=== PATIENT | male | born 1965 | race Caucasian/White ===

== ENCOUNTER 2018-02-26 14:21 | Inpatient (IN) | payer MEDICARE ==
[2018-02-26 15:02] LABS: BASO # 0.2 10^3/uL (0.0-0.2); BASO % 1.2 % (0.0-1.0); EOS # 0.2 10^3/uL (0.0-0.50); EOS % 1.9 % (0.0-3.0); HEMATOCRIT 43.6 % (42.0-52.0); HEMOGLOBIN 14.7 g/dl (13.5-17.5); IMMATURE GRANULOCYTE % 0.6 % (0-3.0); LYMPH # 3.1 10^3/uL (1.5-4.5); MEAN CORPUSCULAR HEMOGLOBIN 32.1 pg (27.0-33.0); MEAN CORPUSCULAR HGB CONC 33.7 g/dl (32.0-36.5); MEAN CORPUSCULAR VOLUME 95.2 fl (80.0-96.0); MONO % 7.8 % (0.0-5.0); NEUTROPHILS # 7.8 10^3/uL (1.8-7.7); NEUTROPHILS % 63.5 % (36.0-66.0); PLATELET COUNT, AUTOMATED 227 10^3/uL (150-450); RED BLOOD COUNT 4.58 10^6/uL (4.30-6.10); RED CELL DISTRIBUTION WIDTH 13.3 % (11.5-14.5); WHITE BLOOD COUNT 12.3 10^3/uL (4.0-10.0)
[2018-02-26] MEDS: LORazepam 2 MG/ML VIAL (J2060) IV ×2 (15:24→18:08)
[2018-02-26] MEDS: NS 1,000 ML IV ×2 (15:35→15:53)
[2018-02-26 15:36] LABS: BEDSIDE GLUCOSE 82 MG/DL (70-105)
[2018-02-26] MEDS ORDERED: ALBUTEROL 90 MCG/ACT 8GM HFA INHALER INH (16:15)
[2018-02-26 16:45] LABS: AMPHETAMINES LEVEL URINE NEGATIVE (NEGATIVE); BARBITURATES URINE NEGATIVE (NEGATIVE); BENZODIAZEPINES URINE NEGATIVE (NEGATIVE); CANNABINOIDS URINE POSITIVE (NEGATIVE); COCAINE METABOLITE URINE NEGATIVE (NEGATIVE); METHADONE URINE NEGATIVE (NEGATIVE); OPIATES URINE NEGATIVE (NEGATIVE); PHENCYCLIDINE URINE NEGATIVE (NEGATIVE)
[2018-02-26 16:47] LABS: ACETAMINOPHEN LEVEL < 2.0 UG/ML (10.0-30.0); ALBUMIN 3.7 GM/DL (3.2-5.2); ALBUMIN/GLOBULIN RATIO 0.93 (1.00-1.93); ALKALINE PHOSPHATASE 66 U/L (45-117); ALT/SGPT 28 U/L (12-78); ANION GAP 13 MEQ/L (8-16); AST/SGOT 17 U/L (7-37); BILIRUBIN,DIRECT 0.1 MG/DL (0.0-0.2); BILIRUBIN,TOTAL 0.3 MG/DL (0.2-1.0); BLOOD UREA NITROGEN 10 MG/DL (7-18); CALCIUM LEVEL 8.5 MG/DL (8.5-10.1); CARBON DIOXIDE LEVEL 23 MEQ/L (21-32); CHLORIDE LEVEL 104 MEQ/L (98-107); CPK CREATINE PHOSPHOKINASE 114 U/L (39-308); ETHYL ALCOHOL (ETHANOL) 0.162 % (0.000-0.010); GLOMERULAR FILTRATION RATE > 60.0 (>56); GLUCOSE, FASTING 88 MG/DL (70-100); POTASSIUM SERUM 4.2 MEQ/L (3.5-5.1); SALICYLATE LEVEL 4.4 MG/DL (5.0-30.0); SODIUM LEVEL 140 MEQ/L (136-145); THYROID STIMULATING HORMONE 0.663 uIU/ML (0.358-3.740); TOTAL PROTEIN 7.7 GM/DL (6.4-8.2)
[2018-02-26] MEDS: GABAPENTIN 300 MG CAP PO (20:50)
[2018-02-26] MEDS: SUCRALFATE 1 GM TAB PO (20:51)
[2018-02-26] MEDS: DIVALPROEX 500 MG TAB PO (20:51)
[2018-02-26 21:37] LABS: CPK CREATINE PHOSPHOKINASE 134 U/L (39-308); MAGNESIUM LEVEL 2.1 MG/DL (1.8-2.4); TROPONIN I < 0.02 NG/ML (< 0.10); VALPROIC ACID (DEPAKOTE) 42.7 UG/ML (50.0-100.0)
[2018-02-27] MEDS: NS 1,000 ML IV ×2 (03:56→17:28)
[2018-02-27] MEDS: FLUTICASONE HFA 220 MCG 12 GM INHALER (FLOVENT) INH ×3 (04:32→20:23)
[2018-02-27 04:50] LABS: HEMATOCRIT 39.4 % (42.0-52.0); HEMOGLOBIN 13.2 g/dl (13.5-17.5); MEAN CORPUSCULAR HGB CONC 33.5 g/dl (32.0-36.5); MEAN CORPUSCULAR VOLUME 95.4 fl (80.0-96.0); PLATELET COUNT, AUTOMATED 197 10^3/uL (150-450); RED BLOOD COUNT 4.13 10^6/uL (4.30-6.10); RED CELL DISTRIBUTION WIDTH 13.4 % (11.5-14.5)
[2018-02-27 05:28] LABS: ALBUMIN 3.2 GM/DL (3.2-5.2); ALBUMIN/GLOBULIN RATIO 0.94 (1.00-1.93); ALKALINE PHOSPHATASE 53 U/L (45-117); ALT/SGPT 23 U/L (12-78); ANION GAP 5 MEQ/L (8-16); AST/SGOT 17 U/L (7-37); BILIRUBIN,TOTAL 0.5 MG/DL (0.2-1.0); BLOOD UREA NITROGEN 10 MG/DL (7-18); CALCIUM LEVEL 8.1 MG/DL (8.5-10.1); CARBON DIOXIDE LEVEL 30 MEQ/L (21-32); CHLORIDE LEVEL 108 MEQ/L (98-107); CREATININE FOR GFR 0.98 MG/DL (0.70-1.30); GLOMERULAR FILTRATION RATE > 60.0 (>56); GLUCOSE, FASTING 97 MG/DL (70-100); POTASSIUM SERUM 4.3 MEQ/L (3.5-5.1); SODIUM LEVEL 143 MEQ/L (136-145); TOTAL PROTEIN 6.6 GM/DL (6.4-8.2); VALPROIC ACID (DEPAKOTE) 70.7 UG/ML (50.0-100.0)
[2018-02-27] MEDS: SUCRALFATE 1 GM TAB PO ×4 (07:41→20:03)
[2018-02-27] MEDS: TIOTROPIUM INHALER/CAPSULE (SPIRIVA) INH (08:00)
[2018-02-27] MEDS: DIVALPROEX 500 MG TAB PO ×2 (08:06→20:03)
[2018-02-27] MEDS: FOLIC ACID 1 MG TAB PO (08:06)
[2018-02-27] MEDS: FINASTERIDE 5 MG TAB PO (08:06)
[2018-02-27] MEDS: THIAMINE 100 MG TAB PO (08:06)
[2018-02-27] MEDS: GABAPENTIN 300 MG CAP PO ×3 (08:07→20:03)
[2018-02-27] MEDS: LORazepam 2 MG/ML VIAL (J2060) IV (11:38)
== END 2018-02-27 20:32 | DRG 881 ==
LOC: M ED 14:21 → M ED INP 15:48 → M ICU 17:33
DX: F32.9 Major depressive disorder, single episode, unspecified (principal); R45.851 Suicidal ideations; F10.10 Alcohol abuse, uncomplicated; F43.10 Post-traumatic stress disorder, unspecified; Z62.810 Personal history of physical and sexual abuse in childhood; F41.9 Anxiety disorder, unspecified; Z79.899 Other long term (current) drug therapy; D72.829 Elevated white blood cell count, unspecified

== ENCOUNTER 2018-02-27 20:38 | Inpatient (IN) | payer MEDICARE ==
[~2018-02-27 20:38] MED LIST: ACETAMINOPHEN TAB 650MG DOSE (2X325MG) PO; MAALOX 30 ML SUSP *UDC PO; MOM 30ML SUSPENSION UDC PO
[2018-02-28] MEDS: cloNIDine 0.1 MG TAB PO (02:08)
[2018-02-28] MEDS: LORazepam 1 MG TAB PO (02:08)
[2018-02-28 02:43] LABS: HEMATOCRIT 42.7 % (42.0-52.0); HEMOGLOBIN 14.2 g/dl (13.5-17.5); MEAN CORPUSCULAR HEMOGLOBIN 32.1 pg (27.0-33.0); MEAN CORPUSCULAR HGB CONC 33.3 g/dl (32.0-36.5); MEAN CORPUSCULAR VOLUME 96.4 fl (80.0-96.0); PLATELET COUNT, AUTOMATED 202 10^3/uL (150-450); RED BLOOD COUNT 4.43 10^6/uL (4.30-6.10); RED CELL DISTRIBUTION WIDTH 13.3 % (11.5-14.5); WHITE BLOOD COUNT 9.6 10^3/uL (4.0-10.0)
[2018-02-28 03:21] LABS: ALBUMIN 3.3 GM/DL (3.2-5.2); ALBUMIN/GLOBULIN RATIO 0.92 (1.00-1.93); ALKALINE PHOSPHATASE 59 U/L (45-117); ALT/SGPT 25 U/L (12-78); ANION GAP 6 MEQ/L (8-16); AST/SGOT 13 U/L (7-37); BILIRUBIN,TOTAL 0.6 MG/DL (0.2-1.0); BLOOD UREA NITROGEN 11 MG/DL (7-18); CALCIUM LEVEL 8.1 MG/DL (8.5-10.1); CARBON DIOXIDE LEVEL 29 MEQ/L (21-32); CHLORIDE LEVEL 107 MEQ/L (98-107); CREATININE FOR GFR 1.06 MG/DL (0.70-1.30); GLOMERULAR FILTRATION RATE > 60.0 (>56); GLUCOSE, FASTING 95 MG/DL (70-100); NT-PRO BNP 68 PG/ML (<125); POTASSIUM SERUM 4.1 MEQ/L (3.5-5.1); SODIUM LEVEL 142 MEQ/L (136-145); TOTAL PROTEIN 6.9 GM/DL (6.4-8.2); TROPONIN I < 0.02 NG/ML (< 0.10); VALPROIC ACID (DEPAKOTE) 95.3 UG/ML (50.0-100.0)
[2018-02-28] MEDS: GABAPENTIN 300 MG CAP PO ×3 (09:00→20:49)
[2018-02-28] MEDS: SERTRALINE HCL 50 MG TAB PO (09:44)
[2018-02-28 11:13] LABS: HEMATOCRIT 43.4 % (42.0-52.0); HEMOGLOBIN 14.6 g/dl (13.5-17.5); MEAN CORPUSCULAR HEMOGLOBIN 32.1 pg (27.0-33.0); MEAN CORPUSCULAR HGB CONC 33.6 g/dl (32.0-36.5); MEAN CORPUSCULAR VOLUME 95.4 fl (80.0-96.0); PLATELET COUNT, AUTOMATED 202 10^3/uL (150-450); RED BLOOD COUNT 4.55 10^6/uL (4.30-6.10); RED CELL DISTRIBUTION WIDTH 13.3 % (11.5-14.5); WHITE BLOOD COUNT 7.5 10^3/uL (4.0-10.0)
[2018-02-28 11:36] LABS: ALBUMIN 3.5 GM/DL (3.2-5.2); ALBUMIN/GLOBULIN RATIO 0.97 (1.00-1.93); ALKALINE PHOSPHATASE 59 U/L (45-117); ALT/SGPT 20 U/L (12-78); ANION GAP 4 MEQ/L (8-16); AST/SGOT 15 U/L (7-37); BILIRUBIN,TOTAL 0.4 MG/DL (0.2-1.0); BLOOD UREA NITROGEN 8 MG/DL (7-18); CALCIUM LEVEL 8.7 MG/DL (8.5-10.1); CARBON DIOXIDE LEVEL 30 MEQ/L (21-32); CHLORIDE LEVEL 106 MEQ/L (98-107); CREATININE FOR GFR 1.01 MG/DL (0.70-1.30); GLOMERULAR FILTRATION RATE > 60.0 (>56); GLUCOSE, FASTING 87 MG/DL (70-100); POTASSIUM SERUM 4.3 MEQ/L (3.5-5.1); SODIUM LEVEL 140 MEQ/L (136-145); TOTAL PROTEIN 7.1 GM/DL (6.4-8.2); VALPROIC ACID (DEPAKOTE) 69.7 UG/ML (50.0-100.0)
[2018-02-28] MEDS ORDERED: ALBUTEROL 90 MCG/ACT 8GM HFA INHALER INH (12:45)
[2018-02-28] MEDS: DULoxetine 30 MG CAP (CYMBALTA) PO (14:52)
[2018-02-28] MEDS: DIVALPROEX 500 MG TAB PO ×2 (14:52→20:48)
[2018-02-28] MEDS: TIOTROPIUM INHALER/CAPSULE (SPIRIVA) INH (14:52)
[2018-02-28] MEDS ORDERED: GABAPENTIN 300 MG CAP PO (16:00)
[2018-02-28] MEDS: traZODone 50 MG TAB PO (20:48)
[2018-02-28] MEDS: hydrOXYzine 50 MG TAB PO (20:48)
[2018-03-01] MEDS: SUCRALFATE 1 GM TAB PO ×3 (00:30→11:39)
[2018-03-01] MEDS: TIOTROPIUM INHALER/CAPSULE (SPIRIVA) INH (08:04)
[2018-03-01] MEDS: SERTRALINE HCL 50 MG TAB PO (08:04)
[2018-03-01] MEDS: THIAMINE 100 MG TAB PO (08:04)
[2018-03-01] MEDS: DULoxetine 30 MG CAP (CYMBALTA) PO (08:04)
[2018-03-01] MEDS: GABAPENTIN 300 MG CAP PO (08:04)
[2018-03-01] MEDS: PANTOPRAZOLE 40MG TAB (PROTONIX) PO (08:04)
[2018-03-01] MEDS: DIVALPROEX 500 MG TAB PO (08:04)
[2018-03-01] MEDS: FINASTERIDE 5 MG TAB PO (08:04)
== END 2018-03-01 13:15 | disposition home or self-care (01) | DRG 881 ==
LOC: M PSY 20:38
DX: F32.9 Major depressive disorder, single episode, unspecified (principal); R45.851 Suicidal ideations; F10.10 Alcohol abuse, uncomplicated; F43.10 Post-traumatic stress disorder, unspecified; Z62.810 Personal history of physical and sexual abuse in childhood; F41.9 Anxiety disorder, unspecified; Z79.899 Other long term (current) drug therapy; D72.829 Elevated white blood cell count, unspecified

== ENCOUNTER 2018-03-31 23:18 | Inpatient (IN) | payer MEDICARE ==
[2018-03-31] MEDS: NS 1,000 ML IV (23:45)
[2018-03-31 23:55] LABS: BASO # 0.3 10^3/uL (0.0-0.2); BASO % 2.5 % (0.0-1.0); EOS # 0.8 10^3/uL (0.0-0.50); EOS % 8.2 % (0.0-3.0); HEMATOCRIT 40.5 % (42.0-52.0); HEMOGLOBIN 13.6 g/dl (13.5-17.5); IMMATURE GRANULOCYTE % 1.2 % (0-3.0); LYMPH # 2.3 10^3/uL (1.5-4.5); LYMPH % 22.9 % (24.0-44.0); MEAN CORPUSCULAR HEMOGLOBIN 32.2 pg (27.0-33.0); MEAN CORPUSCULAR HGB CONC 33.6 g/dl (32.0-36.5); MEAN CORPUSCULAR VOLUME 95.7 fl (80.0-96.0); MONO # 0.9 10^3/uL (0.0-0.8); MONO % 8.8 % (0.0-5.0); NEUTROPHILS # 5.5 10^3/uL (1.8-7.7); NEUTROPHILS % 56.4 % (36.0-66.0); PLATELET COUNT, AUTOMATED 256 10^3/uL (150-450); RED BLOOD COUNT 4.23 10^6/uL (4.30-6.10); RED CELL DISTRIBUTION WIDTH 13.4 % (11.5-14.5); WHITE BLOOD COUNT 9.8 10^3/uL (4.0-10.0)
[2018-04-01 00:18] LABS: LACTIC ACID SEPSIS PROTOCOL 2.3 MMOL/L (0.4-2.0)
[2018-04-01 00:27] LABS: ACETAMINOPHEN LEVEL < 2.0 UG/ML (10.0-30.0); ALBUMIN 3.8 GM/DL (3.2-5.2); ALBUMIN/GLOBULIN RATIO 0.95 (1.00-1.93); ALKALINE PHOSPHATASE 65 U/L (45-117); ALT/SGPT 29 U/L (12-78); ANION GAP 10 MEQ/L (8-16); AST/SGOT 31 U/L (7-37); BILIRUBIN,DIRECT < 0.1 MG/DL (0.0-0.2); BILIRUBIN,TOTAL 0.3 MG/DL (0.2-1.0); BLOOD UREA NITROGEN 16 MG/DL (7-18); CALCIUM LEVEL 8.2 MG/DL (8.5-10.1); CARBON DIOXIDE LEVEL 23 MEQ/L (21-32); CHLORIDE LEVEL 106 MEQ/L (98-107); CPK CREATINE PHOSPHOKINASE 267 U/L (39-308); CREATININE FOR GFR 1.12 MG/DL (0.70-1.30); ETHYL ALCOHOL (ETHANOL) 0.035 % (0.000-0.010); GLOMERULAR FILTRATION RATE > 60.0 (>56); GLUCOSE, FASTING 91 MG/DL (70-100); POTASSIUM SERUM 4.4 MEQ/L (3.5-5.1); SALICYLATE LEVEL 3.2 MG/DL (5.0-30.0); SODIUM LEVEL 139 MEQ/L (136-145); TOTAL PROTEIN 7.8 GM/DL (6.4-8.2)
[2018-04-01 01:19] LABS: AMPHETAMINES LEVEL URINE NEGATIVE (NEGATIVE); BARBITURATES URINE NEGATIVE (NEGATIVE); BENZODIAZEPINES URINE NEGATIVE (NEGATIVE); CANNABINOIDS URINE NEGATIVE (NEGATIVE); COCAINE METABOLITE URINE NEGATIVE (NEGATIVE); METHADONE URINE NEGATIVE (NEGATIVE); OPIATES URINE NEGATIVE (NEGATIVE); PHENCYCLIDINE URINE NEGATIVE (NEGATIVE)
[2018-04-01 02:24] LABS: INR 0.91; PROTHROMBIN TIME 12.3 SECONDS (12.1-14.4)
[2018-04-01] MEDS ORDERED: LORazepam 2 MG TAB PO (03:30)
[2018-04-01] MEDS: NS 1,000 ML IV ×4 (03:30→22:56)
[2018-04-01] MEDS: THIAMINE 100 MG TAB PO ×2 (03:57→21:46)
[2018-04-01] MEDS: HEPARIN SOD (PORCINE) 5000 UNITS/ML VIAL SC ×3 (06:00→21:47)
[2018-04-01] MEDS: SUCRALFATE 1 GM TAB PO ×4 (07:30→21:45)
[2018-04-01 07:40] LABS: BASO # 0.2 10^3/uL (0.0-0.2); BASO % 2.2 % (0.0-1.0); EOS # 0.8 10^3/uL (0.0-0.50); EOS % 7.6 % (0.0-3.0); HEMATOCRIT 38.9 % (42.0-52.0); HEMOGLOBIN 13.1 g/dl (13.5-17.5); IMMATURE GRANULOCYTE % 0.8 % (0-3.0); LYMPH % 29.8 % (24.0-44.0); MEAN CORPUSCULAR HEMOGLOBIN 32.3 pg (27.0-33.0); MEAN CORPUSCULAR HGB CONC 33.7 g/dl (32.0-36.5); MEAN CORPUSCULAR VOLUME 95.8 fl (80.0-96.0); MONO # 0.8 10^3/uL (0.0-0.8); MONO % 7.8 % (0.0-5.0); NEUTROPHILS # 5.2 10^3/uL (1.8-7.7); NEUTROPHILS % 51.8 % (36.0-66.0); PLATELET COUNT, AUTOMATED 251 10^3/uL (150-450); RED BLOOD COUNT 4.06 10^6/uL (4.30-6.10); RED CELL DISTRIBUTION WIDTH 13.3 % (11.5-14.5); WHITE BLOOD COUNT 10.1 10^3/uL (4.0-10.0)
[2018-04-01 07:45] LABS: ANION GAP 4 MEQ/L (8-16); BLOOD UREA NITROGEN 15 MG/DL (7-18); CALCIUM LEVEL 8.2 MG/DL (8.5-10.1); CARBON DIOXIDE LEVEL 27 MEQ/L (21-32); CHLORIDE LEVEL 110 MEQ/L (98-107); CREATININE FOR GFR 1.01 MG/DL (0.70-1.30); GLOMERULAR FILTRATION RATE > 60.0 (>56); GLUCOSE, FASTING 89 MG/DL (70-100); MAGNESIUM LEVEL 2.3 MG/DL (1.8-2.4); POTASSIUM SERUM 4.8 MEQ/L (3.5-5.1); SODIUM LEVEL 141 MEQ/L (136-145); VALPROIC ACID (DEPAKOTE) 6.7 UG/ML (50.0-100.0)
[2018-04-01] MEDS: DIVALPROEX 500 MG TAB PO ×2 (10:00→21:46)
[2018-04-01] MEDS: NICOTINE 14 MG/24 HR TRANSDERMAL TD (10:00)
[2018-04-01] MEDS: MULTIVITAMINS/MINERALS THERAP 1 TAB PO (10:01)
[2018-04-01] MEDS: FINASTERIDE 5 MG TAB PO (10:01)
[2018-04-01] MEDS: FOLIC ACID 1 MG TAB PO (10:01)
[2018-04-01] MEDS: TIOTROPIUM INHALER/CAPSULE (SPIRIVA) INH (10:23)
[2018-04-01] MEDS: FLUTICASONE HFA 220 MCG 12 GM INHALER (FLOVENT) INH ×2 (10:24→20:35)
[2018-04-01] MEDS: IPRATROPIUM 0.5MG/ALBUTEROL 2.5MG INH SOL UD 3ML (DUONEB)(J7620) NEB ×3 (10:25→20:00)
[2018-04-01] MEDS ORDERED: PILL CRUSHER/CUTTER 1 EACH XX (13:00)
[2018-04-01 14:29] LABS: KETONE, URINE AUTO RFX NEGATIVE (NEGATIVE); LEUKOCYTE ESTERASE UR AUTO RFX NEGATIVE (NEGATIVE); MUCUS, URINE RFX SMALL (NEGATIVE); NITRITE, URINE AUTO RFX NEGATIVE (NEGATIVE); RBC, URINE AUTO RFX 1 /HPF (0-3); SPECIFIC GRAVITY UR AUTO RFX 1.009 (1.002-1.035); SQUAM EPITHELIAL CELL UR AURFX 0 /HPF (0-6); WBC, URINE AUTO RFX 0 /HPF (0-3)
[2018-04-01] MEDS: DULoxetine 30 MG CAP (CYMBALTA) PO (14:41)
[2018-04-01] MEDS: GABAPENTIN 400 MG CAP PO ×2 (14:42→21:45)
[2018-04-01] MEDS: OLANZapine ORAL DISINTEGRATING TAB 5MG PO (21:46)
[2018-04-02] MEDS: IPRATROPIUM 0.5MG/ALBUTEROL 2.5MG INH SOL UD 3ML (DUONEB)(J7620) NEB ×6 (02:00→23:17)
[2018-04-02 04:23] LABS: BASO # 0.2 10^3/uL (0.0-0.2); BASO % 1.9 % (0.0-1.0); EOS # 0.9 10^3/uL (0.0-0.50); EOS % 9.6 % (0.0-3.0); HEMATOCRIT 36.5 % (42.0-52.0); HEMOGLOBIN 12.1 g/dl (13.5-17.5); IMMATURE GRANULOCYTE % 0.8 % (0-3.0); LYMPH # 3.1 10^3/uL (1.5-4.5); LYMPH % 34.5 % (24.0-44.0); MEAN CORPUSCULAR HEMOGLOBIN 31.5 pg (27.0-33.0); MEAN CORPUSCULAR HGB CONC 33.2 g/dl (32.0-36.5); MEAN CORPUSCULAR VOLUME 95.1 fl (80.0-96.0); MONO # 0.9 10^3/uL (0.0-0.8); MONO % 10.1 % (0.0-5.0); NEUTROPHILS # 3.8 10^3/uL (1.8-7.7); NEUTROPHILS % 43.1 % (36.0-66.0); PLATELET COUNT, AUTOMATED 237 10^3/uL (150-450); RED BLOOD COUNT 3.84 10^6/uL (4.30-6.10); RED CELL DISTRIBUTION WIDTH 13.3 % (11.5-14.5); WHITE BLOOD COUNT 8.9 10^3/uL (4.0-10.0)
[2018-04-02 04:37] LABS: ALBUMIN 2.7 GM/DL (3.2-5.2); ALBUMIN/GLOBULIN RATIO 0.79 (1.00-1.93); ALKALINE PHOSPHATASE 54 U/L (45-117); ALT/SGPT 21 U/L (12-78); ANION GAP 5 MEQ/L (8-16); AST/SGOT 11 U/L (7-37); BILIRUBIN,TOTAL 0.2 MG/DL (0.2-1.0); BLOOD UREA NITROGEN 25 MG/DL (7-18); CALCIUM LEVEL 7.8 MG/DL (8.5-10.1); CARBON DIOXIDE LEVEL 23 MEQ/L (21-32); CHLORIDE LEVEL 115 MEQ/L (98-107); CREATININE FOR GFR 0.91 MG/DL (0.70-1.30); GLOMERULAR FILTRATION RATE > 60.0 (>56); GLUCOSE, FASTING 94 MG/DL (70-100); MAGNESIUM LEVEL 2.1 MG/DL (1.8-2.4); POTASSIUM SERUM 4.2 MEQ/L (3.5-5.1); SODIUM LEVEL 143 MEQ/L (136-145); TOTAL PROTEIN 6.1 GM/DL (6.4-8.2)
[2018-04-02] MEDS: HEPARIN SOD (PORCINE) 5000 UNITS/ML VIAL SC ×3 (05:32→21:32)
[2018-04-02] MEDS: NS 1,000 ML IV (05:41)
[2018-04-02] MEDS: NICOTINE 14 MG/24 HR TRANSDERMAL TD (07:46)
[2018-04-02] MEDS: GABAPENTIN 400 MG CAP PO ×3 (07:47→21:27)
[2018-04-02] MEDS: FINASTERIDE 5 MG TAB PO (07:48)
[2018-04-02] MEDS: SUCRALFATE 1 GM TAB PO ×4 (07:48→21:27)
[2018-04-02] MEDS: DIVALPROEX 500 MG TAB PO ×2 (07:48→21:27)
[2018-04-02] MEDS: MULTIVITAMINS/MINERALS THERAP 1 TAB PO (07:48)
[2018-04-02] MEDS: FOLIC ACID 1 MG TAB PO (07:48)
[2018-04-02] MEDS: DULoxetine 30 MG CAP (CYMBALTA) PO (07:48)
[2018-04-02] MEDS: THIAMINE 100 MG TAB PO ×2 (07:48→21:27)
[2018-04-02] MEDS: FLUTICASONE HFA 220 MCG 12 GM INHALER (FLOVENT) INH ×2 (07:55→21:26)
[2018-04-02] MEDS: TIOTROPIUM INHALER/CAPSULE (SPIRIVA) INH (07:55)
[2018-04-02] MEDS: OLANZapine ORAL DISINTEGRATING TAB 5MG PO (21:27)
[2018-04-03] MEDS: IPRATROPIUM 0.5MG/ALBUTEROL 2.5MG INH SOL UD 3ML (DUONEB)(J7620) NEB ×4 (02:00→20:29)
[2018-04-03 06:14] LABS: BASO # 0.2 10^3/uL (0.0-0.2); BASO % 1.9 % (0.0-1.0); EOS # 0.9 10^3/uL (0.0-0.50); HEMATOCRIT 36.9 % (42.0-52.0); HEMOGLOBIN 12.2 g/dl (13.5-17.5); IMMATURE GRANULOCYTE % 0.5 % (0-3.0); LYMPH # 3.2 10^3/uL (1.5-4.5); LYMPH % 34.2 % (24.0-44.0); MEAN CORPUSCULAR HEMOGLOBIN 31.6 pg (27.0-33.0); MEAN CORPUSCULAR HGB CONC 33.1 g/dl (32.0-36.5); MEAN CORPUSCULAR VOLUME 95.6 fl (80.0-96.0); MONO # 0.8 10^3/uL (0.0-0.8); MONO % 9.1 % (0.0-5.0); NEUTROPHILS # 4.1 10^3/uL (1.8-7.7); NEUTROPHILS % 44.3 % (36.0-66.0); PLATELET COUNT, AUTOMATED 233 10^3/uL (150-450); RED BLOOD COUNT 3.86 10^6/uL (4.30-6.10); RED CELL DISTRIBUTION WIDTH 13.3 % (11.5-14.5); WHITE BLOOD COUNT 9.3 10^3/uL (4.0-10.0)
[2018-04-03] MEDS: HEPARIN SOD (PORCINE) 5000 UNITS/ML VIAL SC ×3 (06:20→21:10)
[2018-04-03 06:40] LABS: ALBUMIN 2.8 GM/DL (3.2-5.2); ALBUMIN/GLOBULIN RATIO 0.78 (1.00-1.93); ALKALINE PHOSPHATASE 50 U/L (45-117); ALT/SGPT 20 U/L (12-78); ANION GAP 7 MEQ/L (8-16); AST/SGOT 12 U/L (7-37); BILIRUBIN,TOTAL 0.3 MG/DL (0.2-1.0); BLOOD UREA NITROGEN 16 MG/DL (7-18); CALCIUM LEVEL 8.3 MG/DL (8.5-10.1); CARBON DIOXIDE LEVEL 24 MEQ/L (21-32); CHLORIDE LEVEL 113 MEQ/L (98-107); CREATININE FOR GFR 0.79 MG/DL (0.70-1.30); GLOMERULAR FILTRATION RATE > 60.0 (>56); GLUCOSE, FASTING 86 MG/DL (70-100); MAGNESIUM LEVEL 1.9 MG/DL (1.8-2.4); POTASSIUM SERUM 4.1 MEQ/L (3.5-5.1); SODIUM LEVEL 144 MEQ/L (136-145); TOTAL PROTEIN 6.4 GM/DL (6.4-8.2)
[2018-04-03] MEDS: SUCRALFATE 1 GM TAB PO ×4 (07:24→21:08)
[2018-04-03] MEDS: GABAPENTIN 400 MG CAP PO ×3 (07:24→21:08)
[2018-04-03] MEDS: MULTIVITAMINS/MINERALS THERAP 1 TAB PO (07:24)
[2018-04-03] MEDS: FOLIC ACID 1 MG TAB PO (07:24)
[2018-04-03] MEDS: FINASTERIDE 5 MG TAB PO (07:25)
[2018-04-03] MEDS: DULoxetine 30 MG CAP (CYMBALTA) PO (07:25)
[2018-04-03] MEDS: DIVALPROEX 500 MG TAB PO ×2 (07:25→21:08)
[2018-04-03] MEDS: THIAMINE 100 MG TAB PO ×2 (07:25→21:08)
[2018-04-03] MEDS: NICOTINE 14 MG/24 HR TRANSDERMAL TD (07:26)
[2018-04-03] MEDS: TIOTROPIUM INHALER/CAPSULE (SPIRIVA) INH (07:26)
[2018-04-03] MEDS: FLUTICASONE HFA 220 MCG 12 GM INHALER (FLOVENT) INH (07:36)
[2018-04-03] MEDS: BACITRACIN OINT 30GM TOP (13:56)
[2018-04-03] MEDS: OLANZapine ORAL DISINTEGRATING TAB 5MG PO (21:08)
[2018-04-04] MEDS: IPRATROPIUM 0.5MG/ALBUTEROL 2.5MG INH SOL UD 3ML (DUONEB)(J7620) NEB ×3 (01:08→14:00)
[2018-04-04 06:25] LABS: BASO # 0.2 10^3/uL (0.0-0.2); BASO % 2.1 % (0.0-1.0); EOS # 1.1 10^3/uL (0.0-0.50); EOS % 11.6 % (0.0-3.0); HEMATOCRIT 39.3 % (42.0-52.0); HEMOGLOBIN 12.8 g/dl (13.5-17.5); IMMATURE GRANULOCYTE % 0.8 % (0-3.0); LYMPH # 3.7 10^3/uL (1.5-4.5); LYMPH % 40.6 % (24.0-44.0); MEAN CORPUSCULAR HEMOGLOBIN 31.6 pg (27.0-33.0); MEAN CORPUSCULAR HGB CONC 32.6 g/dl (32.0-36.5); MONO # 0.8 10^3/uL (0.0-0.8); MONO % 8.4 % (0.0-5.0); NEUTROPHILS # 3.4 10^3/uL (1.8-7.7); NEUTROPHILS % 36.5 % (36.0-66.0); PLATELET COUNT, AUTOMATED 255 10^3/uL (150-450); RED BLOOD COUNT 4.05 10^6/uL (4.30-6.10); RED CELL DISTRIBUTION WIDTH 13.3 % (11.5-14.5); WHITE BLOOD COUNT 9.2 10^3/uL (4.0-10.0)
[2018-04-04] MEDS: HEPARIN SOD (PORCINE) 5000 UNITS/ML VIAL SC ×2 (06:33→14:00)
[2018-04-04 06:55] LABS: ALBUMIN 3.2 GM/DL (3.2-5.2); ALBUMIN/GLOBULIN RATIO 0.82 (1.00-1.93); ALKALINE PHOSPHATASE 53 U/L (45-117); ALT/SGPT 20 U/L (12-78); ANION GAP 6 MEQ/L (8-16); AST/SGOT 11 U/L (7-37); BILIRUBIN,TOTAL 0.3 MG/DL (0.2-1.0); BLOOD UREA NITROGEN 15 MG/DL (7-18); CALCIUM LEVEL 8.3 MG/DL (8.5-10.1); CARBON DIOXIDE LEVEL 27 MEQ/L (21-32); CHLORIDE LEVEL 110 MEQ/L (98-107); CREATININE FOR GFR 0.94 MG/DL (0.70-1.30); GLOMERULAR FILTRATION RATE > 60.0 (>56); GLUCOSE, FASTING 88 MG/DL (70-100); MAGNESIUM LEVEL 1.8 MG/DL (1.8-2.4); POTASSIUM SERUM 3.8 MEQ/L (3.5-5.1); SODIUM LEVEL 143 MEQ/L (136-145); TOTAL PROTEIN 7.1 GM/DL (6.4-8.2)
[2018-04-04 07:03] LABS: TOTAL 25(OH) VITAMIN D 27.3 NG/ML (30.0-100.0)
[2018-04-04 07:03] LABS: VITAMIN B12 LEVEL 440 PG/ML (247-911)
[2018-04-04] MEDS: FLUTICASONE HFA 220 MCG 12 GM INHALER (FLOVENT) INH (07:34)
[2018-04-04] MEDS: TIOTROPIUM INHALER/CAPSULE (SPIRIVA) INH (07:34)
[2018-04-04] MEDS: DIVALPROEX 500 MG TAB PO (09:50)
[2018-04-04] MEDS: GABAPENTIN 400 MG CAP PO ×2 (09:50→17:26)
[2018-04-04] MEDS: FINASTERIDE 5 MG TAB PO (09:50)
[2018-04-04] MEDS: MULTIVITAMINS/MINERALS THERAP 1 TAB PO (09:50)
[2018-04-04] MEDS: DULoxetine 30 MG CAP (CYMBALTA) PO (09:50)
[2018-04-04] MEDS: NICOTINE 14 MG/24 HR TRANSDERMAL TD (09:51)
[2018-04-04] MEDS: SUCRALFATE 1 GM TAB PO ×3 (09:51→17:26)
[2018-04-04] MEDS: FOLIC ACID 1 MG TAB PO (09:51)
[2018-04-04] MEDS ORDERED: OLANZapine ORAL DISINTEGRATING TAB 5MG PO (21:00)
[2018-04-04] MEDS ORDERED: traZODone 50 MG TAB PO (21:00)
== END 2018-04-04 18:32 | disposition home or self-care (01) | DRG 918 ==
LOC: M MSPAV 04-02 10:58 → M ED 23:18 → M ED INP 23:19 → M ICU 04-01 08:34
DX: T43.292A Poisoning by other antidepressants, intentional self-harm, initial encounter (principal); R45.851 Suicidal ideations; E87.2 Acidosis; F31.60 Bipolar disorder, current episode mixed, unspecified; G40.909 Epilepsy, unspecified, not intractable, without status epilepticus; F43.10 Post-traumatic stress disorder, unspecified; I10 Essential (primary) hypertension; J45.909 Unspecified asthma, uncomplicated; F41.9 Anxiety disorder, unspecified; F10.10 Alcohol abuse, uncomplicated; K21.9 Gastro-esophageal reflux disease without esophagitis; Z91.038 Other insect allergy status; F17.210 Nicotine dependence, cigarettes, uncomplicated; R45.850 Homicidal ideations; Z79.899 Other long term (current) drug therapy; N40.0 Benign prostatic hyperplasia without lower urinary tract symptoms; Z91.14 Patient's other noncompliance with medication regimen; F60.3 Borderline personality disorder; F60.2 Antisocial personality disorder

== ENCOUNTER 2018-05-10 14:05 | Inpatient (IN) | payer MEDICARE ==
[~2018-05-10] VITALS: Ht 188 cm; Wt 113.6 kg
[~2018-05-10 14:05] MED LIST changes: -ACETAMINOPHEN TAB 650MG DOSE (2X325MG) PO; +ALFU10TA2 PO; +BETH10TA4; +BETH10TA4 PO; +BUPR100T3 PO; +BUPR1TAB52; +CARA1TAB6 PO; +CITA-230 PO; +CITA20TA4; +DEPA1TAB3 PO; +DILT30TA; +DILT30TA PO; +DIVA500T94; +DULO1CAP2 PO; +DULO30CA PO; +EPIN0.3I11; +ESOM1CAP5; +ESOM1CAP5 PO; +FINA5TAB2; +FINA5TAB2 PO; +FLUT11IN; +FLUT22IN INH; +FOLI1TAB11 PO; +GABA600T4; +GABA600T4 PO; +HYDR50TA70 PO; +HYDRO50TAB PO; +LEVO330T3 PO; -MAALOX 30 ML SUSP *UDC PO; -MOM 30ML SUSPENSION UDC PO; +NEXI40GR PO; +OLAN5ZYD PO; +SPIR1CAP; +SPIR1CAP INH; +SUCR1TAB56; +THIA100T7 PO; +TRAZ-160 PO; +TRAZO50TA PO; +VENTAER; +VENTAER INH; +WELL100T2 PO; +patient comment
[2018-05-10] MEDS ORDERED: PROPOFOL 1,000 MG in APPROPRIATE DILUENT 1 EA IV SCH (15:34)
[2018-05-10] MEDS ORDERED: MIDAZOLAM INJ 2 MG/2 ML VIAL (J2250) IV PRN (15:45)
[2018-05-10] MEDS ORDERED: MORPHINE 4 MG/ML 1ML VIAL/SYRINGE (J2270) IV PRN (15:45)
[2018-05-10] MEDS ORDERED: PROPOFOL 1,000 MG/100 ML VIAL As Ordered ONE ×2 (18:39→20:42)
[2018-05-10 18:45] VITALS: BP 109/69
[2018-05-10] MEDS: PROPOFOL 1,000 MG in APPROPRIATE DILUENT 1 EA IV SCH ×3 (19:00→23:26)
[2018-05-10 19:11] LABS: HEMATOCRIT 33.6 % (42.0-52.0); HEMOGLOBIN 10.8 g/dl (13.5-17.5); MEAN CORPUSCULAR HGB CONC 32.1 g/dl (32.0-36.5); MEAN CORPUSCULAR VOLUME 99.7 fl (80.0-96.0); PLATELET COUNT, AUTOMATED 200 10^3/uL (150-450); RED BLOOD COUNT 3.37 10^6/uL (4.30-6.10); WHITE BLOOD COUNT 9.4 10^3/uL (4.0-10.0)
[2018-05-10] MEDS ORDERED: DILT120C82 PO (19:14)
[2018-05-10] MEDS ORDERED: MECL-86 PO (19:14)
[2018-05-10] MEDS ORDERED: PILL CRUSHER/CUTTER 1 EACH XX PRN (19:15)
[2018-05-10 19:28] LABS: ABG BASE EXCESS -2.8 (-2.0-2.0); ABG HCO3 22.7 MEQ/L (22.0-26.0); ABG O2 SATURATION 95.4 % (95.0-99.0); ABG PARTIAL PRESSURE CO2 42.5 mmHg (35.0-45.0); ABG PARTIAL PRESSURE O2 79.6 mmHg (75.0-100.0); ABG STANDARD HCO3 22.1 MEQ/L (22.0-26.0); ABG pH (ARTERIAL) 7.346 UNITS (7.350-7.450)
[2018-05-10 19:33] LABS: ALBUMIN 2.7 GM/DL (3.2-5.2); ALT/SGPT 18 U/L (12-78); BILIRUBIN,TOTAL 0.3 MG/DL (0.2-1.0); BLOOD UREA NITROGEN 8 MG/DL (7-18); CALCIUM LEVEL 7.2 MG/DL (8.5-10.1); CARBON DIOXIDE LEVEL 25 MEQ/L (21-32); CHLORIDE LEVEL 114 MEQ/L (98-107); CHOLESTEROL LEVEL 157 MG/DL (< 200); CPK CREATINE PHOSPHOKINASE 643 U/L (39-308); CREATININE FOR GFR 0.88 MG/DL (0.70-1.30); GLOMERULAR FILTRATION RATE > 60.0 (>56); GLUCOSE, FASTING 75 MG/DL (70-100); LDH LACTATE DEHYDROGENASE 178 U/L (87-241); PHOSPHORUS LEVEL 2.2 MG/DL (2.5-4.9); POTASSIUM SERUM 3.8 MEQ/L (3.5-5.1); SODIUM LEVEL 145 MEQ/L (136-145); TOTAL PROTEIN 5.9 GM/DL (6.4-8.2); TRIGLYCERIDES LEVEL 166 MG/DL (<150); VALPROIC ACID (DEPAKOTE) 13.4 UG/ML (50.0-100.0)
--- NOTE | 2018-05-10 19:48 | REP ---
Clinical: Respiratory failure. Comparison: 03/31/2018. Findings: Endotracheal tube 4 cm above the nilsa. Nasogastric tube in satisfactory position. Mediastinum and cardiac silhouette are normal. Diffuse increased markings with cephalization and subtle indistinct central pulmonary vasculature raises the possibility of pulmonary vascular congestion. No focal consolidation, effusion, or pneumothorax. Impression: Limited by portable technique. Pulmonary vascular congestion and interstitial edema cannot be excluded. Electronically Signed by Librado Morillo MD 05/10/2018 07:40 P
--- NOTE | 2018-05-10 19:57 | HPE ---
CRITICAL CARE HISTORY AND PHYSICAL DATE OF ADMISSION: 05/10/2018 CRITICAL CARE TIME: 1 hour. This excludes all procedures. HISTORY OF PRESENT ILLNESS: Mr. Stapleton is a 52-year-old male who presented to [facility] within the past 24 hours with what appeared to be seizure and alcohol withdrawal; was intubated. Due to emergency road conditions was not able to be transferred here. Was maintained on mechanical ventilation at [facility] for 24 hours and then when roads cleared eventually was transferred here. They have no critical care physicians. On his arrival, he is sedated on mechanical ventilation. Apparently, he received fentanyl just prior to being transferred. He is on a propofol drip. He is not responsive. Pupils are pinpoint, but reactive. Mucous membranes are moist. He does not have any evidence of seizure activity currently. He is breathing with the ventilator. I am unable to obtain any history other than the limited history provided to me by the transferring physician. Based on his record he has an unfortunate history of drug abuse, drug overdose, intentional with suicidal ideation, post-traumatic stress disorder, possible seizure disorder versus pseudoseizures. PAST MEDICAL HISTORY: There is also a reported history of chronic obstructive pulmonary disease (COPD), although I do not have pulmonary function testing, history of alcohol abuse, gastroesophageal reflux. MEDICATIONS: When discharged from the hospital just in late March. The patient was on: - Depakote 1000 mg by mouth twice a day - proton pump inhibitor at 40 mg by mouth daily - Alfuzosin HCl 10 mg by mouth daily - bethanechol 10 mg by mouth daily - citalopram 20 mg by mouth twice a day - diltiazem 15 mg by mouth twice a day - fluoxetine 30 mg by mouth daily - finasteride 5 mg by mouth daily - Flovent 220 mcg inhaled twice a day - folic acid 1 mg by mouth daily - gabapentin 1200 mg by mouth three times a day - Levocarnitine 990 mg by mouth three times a day - olanzapine 10 mg by mouth at bedtime - Carafate 1 gram by mouth at bedtime - thiamine 100 mg by mouth daily - Spiriva 1 inhalation daily - as needed (p.r.n.) of albuterol, hydroxyzine and trazodone. REVIEW OF SYSTEMS: Unobtainable. SOCIAL HISTORY: Unobtainable. FAMILY HISTORY: Unobtainable. PHYSICAL EXAMINATION: Temperature is 98.5, pulse is 74, blood pressure is 109/69, oxygen saturation 97% on 0.30 FIO2, respiratory rate is 17. General: The patient is sedated on mechanical ventilation, has been no purposeful movements. No posturing. HEENT: Sclerae clear and anicteric. Pupils are equal, but nearly pinpoint. Minimally reactive to light. No nystagmus. There is a positive corneal reflex. Tongue is midline. Neck: Supple. No tracheal deviation or mass. Lymphs: No cervical, supraclavicular or axillary adenopathy. Cardiac: Regular S1, S2 without audible murmur, rub or gallop. No elevated JVP. No peripheral edema. Pulmonary: Clear to auscultation without rales, rhonchi, or wheezes. No accessory muscle use. Abdomen: Soft, nontender, nondistended, no hepatosplenomegaly. No masses or hernia. Extremities: No cyanosis, clubbing or edema. Skin: Pale. LABS: Shows a white blood cell count of 9.4, hemoglobin 10.8, platelet count of 200. Chemistry panel is pending. Valproic acid level is pending. Chest x-ray shows the endotracheal tube is high without any significant infiltrate. No pneumothorax. IMPRESSION: Respiratory failure, thought to be secondary to alcohol withdrawal. Will place the patient on Serax due to his prior history and monitor for seizure activity. Will lighten sedation in an attempt for extubation. In the meantime, I will start tube feeds and supportive measures with deep venous thrombosis (DVT) prophylaxis and GI prophylaxis. I will continue Depakote along with obtaining a valproic acid level to ensure no toxicity. Due to his history of alcohol abuse, will provide thiamine and multivitamin. He currently requires mechanical ventilation due to altered mental status, currently unresponsive, but this may be drug effect. Over time will continue to monitor in the ICU for neurologic recovery. At this point in time there is no signs of arrhythmia. Blood pressure is adequate, especially for the amount of propofol that he was transferred on. CRITICAL CARE TIME: 1 hour. This excludes all procedures.
[2018-05-10 20:00] VITALS: BP 105/66
[2018-05-10 20:01] VITALS: O2SAT 93
[2018-05-10] MEDS: IPRATROPIUM 0.5MG/ALBUTEROL 2.5MG INH SOL UD 3ML (DUONEB)(J7620) NEB SCH (20:03)
[2018-05-10] MEDS: OXAZEPAM 15 MG CAP PO SCH ×2 (20:47→23:25)
[2018-05-10] MEDS: VALPROIC ACID SYRUP 250 MG/5 ML UDC PO SCH (20:48)
[2018-05-10 21:00] VITALS: BP 113/73
[2018-05-10] MEDS ORDERED: MULTIVITAMIN -ADULT INJECTION 10 ML, THIAMINE INJection 100 MG, FOLIC ACID 1 MG in NS 1... IV ONE (21:00)
[2018-05-10] MEDS ORDERED: CHLORHEXIDINE GLUCONATE 0.12 % 15ML UDC (PERIDEX ORAL RINSE) MT SCH (21:00)
[2018-05-10] MEDS ORDERED: VALPROIC ACID 250 MG CAP PO SCH ×2 (21:00)
[2018-05-10 22:00] VITALS: BP 112/70
[2018-05-11] VITALS (27 sets, daily range): BP systolic 95–169; BP diastolic 58–97; O2SAT 95
[2018-05-11] MEDS: PROPOFOL 1,000 MG in APPROPRIATE DILUENT 1 EA IV SCH ×3 (02:42→08:09)
[2018-05-11 04:59] LABS: ALBUMIN 2.7 GM/DL (3.2-5.2); BLOOD UREA NITROGEN 9 MG/DL (7-18); CALCIUM LEVEL 7.1 MG/DL (8.5-10.1); CARBON DIOXIDE LEVEL 25 MEQ/L (21-32); CHLORIDE LEVEL 113 MEQ/L (98-107); CREATININE FOR GFR 0.92 MG/DL (0.70-1.30); GLOMERULAR FILTRATION RATE > 60.0 (>56); GLUCOSE, FASTING 129 MG/DL (70-100); PHOSPHORUS LEVEL 2.4 MG/DL (2.5-4.9); POTASSIUM SERUM 3.8 MEQ/L (3.5-5.1); SODIUM LEVEL 144 MEQ/L (136-145)
[2018-05-11 05:24] LABS: HEMATOCRIT 32.6 % (42.0-52.0); HEMOGLOBIN 10.6 g/dl (13.5-17.5); MEAN CORPUSCULAR HEMOGLOBIN 31.9 pg (27.0-33.0); MEAN CORPUSCULAR HGB CONC 32.5 g/dl (32.0-36.5); MEAN CORPUSCULAR VOLUME 98.2 fl (80.0-96.0); PLATELET COUNT, AUTOMATED 189 10^3/uL (150-450); RED BLOOD COUNT 3.32 10^6/uL (4.30-6.10); WHITE BLOOD COUNT 8.7 10^3/uL (4.0-10.0)
[2018-05-11] MEDS: OXAZEPAM 15 MG CAP PO SCH (05:39)
[2018-05-11 06:17] LABS: ABG HCO3 23.9 MEQ/L (22.0-26.0); ABG O2 SATURATION 92.8 % (95.0-99.0); ABG PARTIAL PRESSURE CO2 40.5 mmHg (35.0-45.0); ABG PARTIAL PRESSURE O2 63.8 mmHg (75.0-100.0); ABG STANDARD HCO3 23.5 MEQ/L (22.0-26.0); ABG TOTAL CO2 25.1 MEQ/L (22.0-29.0); ABG pH (ARTERIAL) 7.388 UNITS (7.350-7.450)
[2018-05-11] MEDS: IPRATROPIUM 0.5MG/ALBUTEROL 2.5MG INH SOL UD 3ML (DUONEB)(J7620) NEB SCH ×4 (07:38→20:00)
--- NOTE | 2018-05-11 07:56 | REP ---
Clinical: Respiratory failure. Comparison: 05/10/2018. Findings: Endotracheal tube 4 cm above the nilsa. Nasogastric tube in satisfactory position. Mediastinum and cardiac silhouette are within normal limits. Subtle basilar atelectasis cannot be excluded. No effusion. No pneumothorax. Skeletal structures intact. Impression: Lines and tubes in satisfactory position. Subtle basilar atelectasis suggested. Electronically Signed by Librado Morillo MD 05/11/2018 07:48 A
[2018-05-11] MEDS: ADVAIR HFA 230/21MCG INHALER INH SCH ×3 (09:00→20:00)
[2018-05-11] MEDS ORDERED: PANTOPRAZOLE 40MG INJ (PROTONIX) (C9113) IV SCH (09:00)
--- NOTE | 2018-05-11 09:45 | CCN ---
DATE: 05/11/2018 At bedside this morning on sedation vacation, the patient was able to sit up and cough, occasionally responding to voice but clearly protecting his airway. He is making purposeful movements attempting to self extubate. There have been no significant fluctuations in blood pressure overnight. He is on no vasoactive therapy. PHYSICAL EXAMINATION: Temperature is 98.6, pulse 78, respiratory rate of 23 with blood pressure 105/75 with mean arterial pressure of 85, oxygen saturations 95% on 0.21 FiO2. The patient is on volume control trial pressure support 08/11 revealed a respiratory shallow breathing index of 55. 1041 in, 178 out. GENERAL: The patient with some sedation but is able to protect his airway. Extubated at bedside. Is somewhat sonorous, intermittent desaturations therefore nasal trumpet was placed. HEENT: Sclerae clear and anicteric. Pupils equal, reactive to light. Mucous membranes are moist. Tongue is midline. Neck is supple. No tracheal deviation or mass. No cervical, supraclavicular, or axillary adenopathy. CARDIAC: Regular S1, S2 without audible murmur, rub or gallop. No elevated jugular venous pulse (JVP). No peripheral edema. PULMONARY: Clear to auscultation without rales, rhonchi or wheezes. No dullness to percussion. Abdomen is soft, nontender, nondistended. No hepatosplenomegaly. No masses or herniation. EXTREMITIES: No cyanosis, clubbing or edema. Skin is pale without rash, jaundice or bruising. NEUROLOGIC: No evidence of seizure activity. No myoclonus. DTRs are normal at patella and radial and brachial radialis bilaterally. Mentation is variable but arouses to voice. Chest x-ray shows endotracheal tube slightly high just almost 5 cm above the nilsa. No significant infiltrate. No effusion. No pneumothorax. Arterial blood gas shows a pH of 7.39, pCO2 of 41, pAO2 of 64 and 0.21, FiO2. Sodium is 144, potassium 3.8, chloride 113, bicarb of 25 with BUN of 90, creatinine 0.92. White blood cell count is 8.7 with a hemoglobin 10.6, hematocrit of 32.6 and a platelet count of 1.89. Valproic acid level was low at 13.4. 1. Respiratory failure secondary neurologic status: Trial of extubation this morning. The patient occasionally sonorous therefore nasal trumpet was placed likely influenced by alcohol withdrawal. 2. Reported history of seizure: The patient on Depacote, valproic acid slightly low. Currently the patient is also on Serax for alcohol withdrawal. Will continue to monitor with neurologic exam. 3. Nicotine dependence: The patient asking for cigarettes. Nicotine patch placed. 4. Benign prostatic hypertrophy (BPH): Will restart finasteride. 5. History of psychiatric disease with depression, posttraumatic stress disorder (PTSD): Will restart his citalopram and olanzapine and provide as needed medication for agitation. 6. Reported history of chronic obstructive pulmonary disease (COPD). Will restart Spiriva and Advair. 7. The patient is at risk for reintubation given his altering mental status. He is in what appears to be alcohol withdrawal and therefore requires close monitoring. He will remain in the intensive care unit. Critical care time was a total of 52 minutes. This excludes all procedures.
[2018-05-11] MEDS ORDERED: HALOPERIDOL 5 MG/ML VIAL (J1630) IV PRN (10:00)
[2018-05-11] MEDS: LORazepam 2 MG/ML VIAL (J2060) IV PRN ×3 (10:00→15:07)
[2018-05-11] MEDS: NICOTINE 21MG/24HR 1 EA TRANSDERMAL TD SCH (10:07)
[2018-05-11] MEDS: VALPROIC ACID SYRUP 250 MG/5 ML UDC PO SCH (10:07)
[2018-05-11] MEDS: THIAMINE 100 MG TAB PO SCH (10:08)
[2018-05-11] MEDS: ENOXAPARIN 40 MG/0.4 ML SYRINGE (J1650) SC SCH (10:08)
[2018-05-11] MEDS: MULTIVITAMINS/MINERALS THERAP 1 TAB PO SCH (10:08)
[2018-05-11] MEDS: FINASTERIDE 5 MG TAB PO SCH (10:09)
[2018-05-11] MEDS: CitaloPRAM (CeleXA) 20 MG TAB PO SCH (10:09)
[2018-05-11] MEDS: TIOTROPIUM INHALER/CAPSULE (SPIRIVA) INH SCH ×2 (11:39→20:00)
[2018-05-11] MEDS: NYSTATIN 100,000 UNITS/GM TOPICAL PWD 15 GM TOP SCH ×2 (15:09→20:15)
[2018-05-11] MEDS: OLANZapine 10 MG TAB PO SCH (20:14)
[2018-05-11] MEDS: VALPROIC ACID 250 MG CAP PO SCH (20:14)
[2018-05-11] MEDS: OXAZEPAM 10 MG CAP PO SCH (20:14)
[2018-05-12] VITALS (14 sets, daily range): BP systolic 116–150; BP diastolic 63–89
[2018-05-12 05:01] LABS: HEMATOCRIT 35.7 % (42.0-52.0); HEMOGLOBIN 11.4 g/dl (13.5-17.5); MEAN CORPUSCULAR HEMOGLOBIN 31.4 pg (27.0-33.0); MEAN CORPUSCULAR HGB CONC 31.9 g/dl (32.0-36.5); MEAN CORPUSCULAR VOLUME 98.3 fl (80.0-96.0); PLATELET COUNT, AUTOMATED 176 10^3/uL (150-450); RED BLOOD COUNT 3.63 10^6/uL (4.30-6.10); WHITE BLOOD COUNT 10.1 10^3/uL (4.0-10.0)
[2018-05-12 05:14] LABS: ALBUMIN 2.8 GM/DL (3.2-5.2); BLOOD UREA NITROGEN 5 MG/DL (7-18); CALCIUM LEVEL 7.5 MG/DL (8.5-10.1); CARBON DIOXIDE LEVEL 28 MEQ/L (21-32); CHLORIDE LEVEL 112 MEQ/L (98-107); CREATININE FOR GFR 0.91 MG/DL (0.70-1.30); GLOMERULAR FILTRATION RATE > 60.0 (>56); GLUCOSE, FASTING 85 MG/DL (70-100); PHOSPHORUS LEVEL 2.5 MG/DL (2.5-4.9); POTASSIUM SERUM 3.7 MEQ/L (3.5-5.1); SODIUM LEVEL 146 MEQ/L (136-145)
[2018-05-12 06:01] LABS: ABG BASE EXCESS 2.3 (-2.0-2.0); ABG HCO3 26.3 MEQ/L (22.0-26.0); ABG O2 SATURATION 96.5 % (95.0-99.0); ABG PARTIAL PRESSURE CO2 38.5 mmHg (35.0-45.0); ABG PARTIAL PRESSURE O2 83.6 mmHg (75.0-100.0); ABG STANDARD HCO3 26.5 MEQ/L (22.0-26.0); ABG TOTAL CO2 27.5 MEQ/L (22.0-29.0); ABG pH (ARTERIAL) 7.452 UNITS (7.350-7.450)
[2018-05-12] MEDS: ADVAIR HFA 230/21MCG INHALER INH SCH ×2 (07:51→21:28)
[2018-05-12] MEDS: TIOTROPIUM INHALER/CAPSULE (SPIRIVA) INH SCH (07:51)
[2018-05-12] MEDS: IPRATROPIUM 0.5MG/ALBUTEROL 2.5MG INH SOL UD 3ML (DUONEB)(J7620) NEB SCH ×4 (07:52→20:00)
[2018-05-12] MEDS ORDERED: OXAZEPAM 10 MG CAP PO PRN (08:00)
--- NOTE | 2018-05-12 08:20 | REP ---
Clinical: Respiratory failure. Comparison: 05/11/2018. Findings: Mediastinum and cardiac silhouette are normal. Lung potts demonstrate chronic interstitial changes. Superimposed bibasilar infiltrate/atelectasis (right greater than left) are more pronounced than prior examination. No definite effusion. No pneumothorax. Skeletal structures intact. Impression: The patient is status post extubation with increasing bibasilar opacities (right greater than left). Electronically Signed by Librado Morillo MD 05/12/2018 08:12 A
[2018-05-12] MEDS: ENOXAPARIN 40 MG/0.4 ML SYRINGE (J1650) SC SCH (08:27)
[2018-05-12] MEDS: FOLIC ACID 1 MG TAB PO SCH (08:28)
[2018-05-12] MEDS: PANTOPRAZOLE 40MG TAB (PROTONIX) PO SCH (08:28)
[2018-05-12] MEDS: THIAMINE 100 MG TAB PO SCH (08:28)
[2018-05-12] MEDS: VALPROIC ACID 250 MG CAP PO SCH ×2 (08:28→20:22)
[2018-05-12] MEDS: OXAZEPAM 10 MG CAP PO SCH ×2 (08:29→20:23)
[2018-05-12] MEDS: DULoxetine 30 MG CAP (CYMBALTA) PO SCH (08:29)
[2018-05-12] MEDS: FINASTERIDE 5 MG TAB PO SCH (08:29)
[2018-05-12] MEDS: MULTIVITAMINS/MINERALS THERAP 1 TAB PO SCH (08:29)
[2018-05-12] MEDS: CitaloPRAM (CeleXA) 20 MG TAB PO SCH (08:29)
[2018-05-12] MEDS: GABAPENTIN 300 MG CAP PO SCH ×3 (08:29→20:22)
[2018-05-12] MEDS: NICOTINE 21MG/24HR 1 EA TRANSDERMAL TD SCH (08:30)
[2018-05-12] MEDS: NYSTATIN 100,000 UNITS/GM TOPICAL PWD 15 GM TOP SCH ×2 (08:31→20:23)
[2018-05-12] MEDS ORDERED: FLUTICASONE HFA 220 MCG 12 GM INHALER (FLOVENT) INH SCH (09:00)
[2018-05-12] MEDS: SUCRALFATE 1 GM TAB PO SCH ×3 (13:07→20:23)
[2018-05-12] MEDS: OLANZapine 10 MG TAB PO SCH (20:23)
[2018-05-13 05:57] LABS: HEMATOCRIT 31.3 % (42.0-52.0); HEMOGLOBIN 10.6 g/dl (13.5-17.5); MEAN CORPUSCULAR HEMOGLOBIN 31.7 pg (27.0-33.0); MEAN CORPUSCULAR HGB CONC 33.9 g/dl (32.0-36.5); MEAN CORPUSCULAR VOLUME 93.7 fl (80.0-96.0); PLATELET COUNT, AUTOMATED 190 10^3/uL (150-450); RED BLOOD COUNT 3.34 10^6/uL (4.30-6.10); WHITE BLOOD COUNT 9.5 10^3/uL (4.0-10.0)
[2018-05-13 06:00] VITALS: BP 133/81
[2018-05-13 06:31] LABS: ALBUMIN 2.6 GM/DL (3.2-5.2); BLOOD UREA NITROGEN 9 MG/DL (7-18); CARBON DIOXIDE LEVEL 29 MEQ/L (21-32); CHLORIDE LEVEL 109 MEQ/L (98-107); CREATININE FOR GFR 0.88 MG/DL (0.70-1.30); GLOMERULAR FILTRATION RATE > 60.0 (>56); GLUCOSE, FASTING 98 MG/DL (70-100); MAGNESIUM LEVEL 2.1 MG/DL (1.8-2.4); POTASSIUM SERUM 3.6 MEQ/L (3.5-5.1); SODIUM LEVEL 144 MEQ/L (136-145)
[2018-05-13] MEDS: TIOTROPIUM INHALER/CAPSULE (SPIRIVA) INH SCH (07:32)
[2018-05-13] MEDS: IPRATROPIUM 0.5MG/ALBUTEROL 2.5MG INH SOL UD 3ML (DUONEB)(J7620) NEB SCH ×2 (07:35→11:21)
--- NOTE | 2018-05-13 07:37 | IPN ---
DATE: 05/12/2018 The patient is seen and examined. Denies any chest pain, pressure or discomfort. Was extubated yesterday. Denies any shortness of breath, would like to be discharged from the hospital. Is still intermittently confused, as per nursing staff. The patient stated that he is not compliant with his seizure medication at home and has been drinking alcohol a lot at home. VITAL SIGNS: Temperature 99.5, pulse 97, respirations 20, blood pressure 132/84, pulse oximetry 93% on room air. LABORATORY: WBC 10.1, hemoglobin and hematocrit 11.4/35.7, platelets 176. Chemistry: Sodium 146, potassium 3.7, chloride 112, bicarbonate 28, BUN 5, creatinine 0.91. PHYSICAL EXAMINATION: GENERAL: The patient is alert, comfortable and in no acute distress. HEENT: Normocephalic, atraumatic. PULMONARY: Bilaterally clear. CARDIAC: Regular. S1, S2. ABDOMEN: Soft, nontender. Positive bowel sounds. EXTREMITIES: No clubbing, cyanosis or edema. ASSESSMENT AND PLAN: This is a 52-year-old male patient with underlying medical history of intentional drug overdose, anxiety, depression, suicide ideation, alcohol abuse, asthma, chronic obstructive pulmonary disease (COPD), hypertension, benign prostatic hypertrophy (BPH), gastroesophageal reflux disease (GERD), is transferred from [facility] after the patient presented with seizures, alcohol withdrawal, and was intubated. 1. Acute respiratory failure secondary to seizure. The patient is currently extubated and currently comfortable. Likely influenced by alcohol withdrawal. Currently extubated and breathing comfortably. 2. Questionable seizure. The patient is not compliant with medication, Depakote level is low. Continue Depakote. Neurologic examination appreciated. 3. Alcohol withdrawal. Thiamine, folic acid and multivitamin. Serax standing and as needed. 4. Nicotine dependence. Nicotine patch. 5. Benign prostatic hypertrophy (BPH). Continue current medications. 6. History of posttraumatic stress disorder (PTSD) and depression. Continue Celexa and Cymbalta. Monitor. The patient denies any suicidality. Currently comfortable. 7. History of chronic obstructive pulmonary disease (COPD). Continue current medications with Advair, Spiriva, nebulizer treatments as needed. 8. Deep vein thrombosis (DVT) prophylaxis. Lovenox subcutaneously. 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 Physical therapy (PT) evaluation. We will monitor for clinical improvement.
[2018-05-13] MEDS: SUCRALFATE 1 GM TAB PO SCH ×2 (07:50→11:39)
[2018-05-13 08:40] VITALS: BP 124/70
[2018-05-13] MEDS: DULoxetine 30 MG CAP (CYMBALTA) PO SCH (08:41)
[2018-05-13] MEDS: CitaloPRAM (CeleXA) 20 MG TAB PO SCH (08:41)
[2018-05-13] MEDS: VALPROIC ACID 250 MG CAP PO SCH (08:44)
[2018-05-13] MEDS: GABAPENTIN 300 MG CAP PO SCH (08:44)
[2018-05-13] MEDS: PANTOPRAZOLE 40MG TAB (PROTONIX) PO SCH (08:44)
[2018-05-13] MEDS: FINASTERIDE 5 MG TAB PO SCH (08:44)
[2018-05-13] MEDS: FOLIC ACID 1 MG TAB PO SCH (08:44)
[2018-05-13] MEDS: OXAZEPAM 10 MG CAP PO SCH (08:45)
[2018-05-13] MEDS: MULTIVITAMINS/MINERALS THERAP 1 TAB PO SCH (08:45)
[2018-05-13] MEDS: THIAMINE 100 MG TAB PO SCH (08:48)
[2018-05-13] MEDS: ENOXAPARIN 40 MG/0.4 ML SYRINGE (J1650) SC SCH (08:49)
[2018-05-13] MEDS: NICOTINE 21MG/24HR 1 EA TRANSDERMAL TD SCH (08:50)
[2018-05-13] MEDS: NYSTATIN 100,000 UNITS/GM TOPICAL PWD 15 GM TOP SCH (09:00)
[2018-05-13] MEDS: ADVAIR HFA 230/21MCG INHALER INH SCH (09:08)
[2018-05-13] MEDS ORDERED: THIA100T7 PO (11:04)
[2018-05-13] MEDS ORDERED: ALFU10TA2 PO (11:04)
[2018-05-13] MEDS ORDERED: VENTAER INH (11:04)
[2018-05-13] MEDS ORDERED: FOLI1TAB11 PO (11:04)
[2018-05-13] MEDS ORDERED: DEPA1TAB3 PO (11:04)
[2018-05-13] MEDS ORDERED: DILT120C82 PO (11:04)
[2018-05-13] MEDS ORDERED: BETH10TA4 PO (11:04)
[2018-05-13] MEDS ORDERED: FINA5TAB2 PO (11:04)
[2018-05-13] MEDS ORDERED: TRAZ-160 PO (11:04)
[2018-05-13] MEDS ORDERED: GABA600T4 PO (11:04)
[2018-05-13] MEDS ORDERED: SPIR1CAP INH (11:04)
[2018-05-13] MEDS ORDERED: LEVO330T3 PO (11:04)
[2018-05-13] MEDS ORDERED: CARA1TAB6 PO (11:04)
[2018-05-13] MEDS ORDERED: DULO1CAP2 PO (11:04)
[2018-05-13] MEDS ORDERED: FLUT22IN INH (11:04)
[2018-05-13] MEDS ORDERED: ESOM1CAP5 PO (11:04)
[2018-05-13] MEDS ORDERED: FLUBLOK(EGG FREE)(QUAD)INFLUENZA VACC 0.5ML SYRINGE (90682)18YRS&OLDER IM ONE (12:00)
--- NOTE | 2018-05-13 19:00 | DSES ---
DATE OF ADMISSION: 05/10/2018 DATE OF DISCHARGE: 05/13/2018 PRIMARY CARE PROVIDER: Dr. Sarah in [place]. NEUROLOGIST: Dr. Loius FINAL DIAGNOSES: 1. Acute respiratory failure secondary to seizure. 2. Alcohol withdrawal. 3. Alcohol abuse history. 4. Nicotine dependence. 5. Benign prostatic hypertrophy (BPH). 6. History of posttraumatic stress disorder (PTSD). 7. Depression. 8. History of chronic obstructive pulmonary disease (COPD). 9. History of suicide attempts and drug overdose. 10. Poor compliance. HISTORY OF PRESENT ILLNESS: This is a 52-year-old male patient with underlying medical history of chronic obstructive pulmonary disease (COPD), depression, posttraumatic stress disorder (PTSD), alcohol abuse, seizure disorder who presented to [facility] 20 hours prior with history of seizures and alcohol withdrawal, requiring intubation. Due to emergency of condition, the patient was not able to be transferred to [facility] for 24 hours. Subsequently, the patient was transferred to [facility] under pulmonary critical care service, Dr. Homer Rawls. The patient was monitored and subsequently extubated. HOSPITAL COURSE: The patient was admitted to intensive care unit (ICU) under Dr. Homer Rawls. Urine toxicology was obtained. Alcohol level was obtained. The patient was monitored and subsequently extubated. The patient reported poor compliance to medication, not taking all the medications. Denies suicidality. Passed physical therapy (PT). Subsequently, was ready to be discharged with further care as an outpatient. VITAL SIGNS: Temperature 98.9, pulse 88, respirations 20, blood pressure 133/81, pulse oximetry 91% on room air. LABORATORY DATA: WBC 9.5, hemoglobin and hematocrit 10.6/31.3, platelets 190. Chemistry: Sodium 144, potassium 3.6, chloride 109, bicarbonate 29, BUN 9, creatinine 0.88. PHYSICAL EXAMINATION: GENERAL: The patient is alert, comfortable and in no acute distress. HEENT: Normocephalic, atraumatic. PULMONARY: Bilaterally clear. CARDIAC: Regular. S1, S2. ABDOMEN: Soft, nontender. Positive bowel sounds. EXTREMITIES: No clubbing, cyanosis or edema. DISCHARGE MEDICATIONS: - Ventolin inhaler every 6 hours as needed - Alfuzosin 10 mg by mouth daily - 10 mg by mouth four times a day - Depakote 1000 mg by mouth twice a day - diltiazem controlled release 120 mg by mouth daily - duloxetine 30 mg by mouth daily - esomeprazole 40 mg by mouth daily - finasteride 5 mg by mouth daily - Flovent inhalation twice a day - folic acid 1 mg by mouth daily - gabapentin 600 mg by mouth three times a day - hydroxyzine 50 mg by mouth every 4 hours as needed - levocarnitine 990 mg by mouth three times a day - meclizine 25 mg by mouth twice a day as needed - Carafate 1 gram by mouth before food and nightly - thiamine 100 mg by mouth daily - Spiriva inhalation daily - trazodone 50 mg by mouth at night Avoid drugs and alcohol. Be compliant with medications. Seizure precautions. No driving or operating heavy equipment unless cleared by neurology. Please see primary care provider in 7 days. Please see psychiatry in 7 days. Please see neurologist in 14 days. Return to hospital if symptoms worsen. Fall precautions.
== END 2018-05-13 13:45 | disposition home or self-care (01) | DRG 208 ==
LOC: M ICU 18:35 → M MSPAV 05-12 17:34
PROVIDERS: ADMIT Internal Medicine Pulmonary Disease; ATTEND Hospitalist
PROC: 5A1945Z Respiratory Ventilation, 24-96 Consecutive Hours (ICD-10-PCS; principal; 2018-05-10)
DX: J96.00 Acute respiratory failure, unspecified whether with hypoxia or hypercapnia (principal); F10.188 Alcohol abuse with other alcohol-induced disorder; J44.9 Chronic obstructive pulmonary disease, unspecified; K21.9 Gastro-esophageal reflux disease without esophagitis; G40.909 Epilepsy, unspecified, not intractable, without status epilepticus; N40.0 Benign prostatic hyperplasia without lower urinary tract symptoms; F17.210 Nicotine dependence, cigarettes, uncomplicated; F32.9 Major depressive disorder, single episode, unspecified; F43.10 Post-traumatic stress disorder, unspecified; Z79.899 Other long term (current) drug therapy; Z91.5 Personal history of self-harm; Z91.14 Patient's other noncompliance with medication regimen

== ENCOUNTER 2018-06-22 09:34 | Inpatient (IN) | payer MEDICARE ==
[~2018-06-22] VITALS: Ht 193 cm; Wt 107.5 kg
[2018-06-22] MEDS: NICOTINE 21MG/24HR 1 EA TRANSDERMAL TD SCH (09:00)
[~2018-06-22 09:34] MED LIST changes: +DILT120C82 PO; +MECL-86 PO
[2018-06-22] MEDS ORDERED: MOM 30ML SUSPENSION UDC PO PRN (11:15)
[2018-06-22] MEDS ORDERED: MAALOX 30 ML SUSP *UDC PO PRN (11:15)
[2018-06-22] MEDS ORDERED: traZODone 50 MG TAB PO PRN (11:15)
[2018-06-22] MEDS ORDERED: THIA100T11 PO (11:42)
[2018-06-22] MEDS ORDERED: SUCR1TAB56 PO (11:42)
[2018-06-22] MEDS ORDERED: SPIR1CAP INH (11:42)
[2018-06-22] MEDS ORDERED: DILT120C31 PO (11:42)
[2018-06-22] MEDS ORDERED: NICOINH INH (11:42)
[2018-06-22] MEDS ORDERED: HYDR50TA30 PO (11:42)
[2018-06-22] MEDS ORDERED: CYMB1CAP5 PO (11:42)
[2018-06-22] MEDS ORDERED: FOLI1TAB11 PO (11:42)
[2018-06-22] MEDS ORDERED: PANT40TA3 PO (11:42)
[2018-06-22] MEDS ORDERED: ALFU10TA2 PO (11:42)
[2018-06-22] MEDS ORDERED: MECL12.575 PO (11:42)
[2018-06-22] MEDS ORDERED: CITA-230 PO (11:42)
[2018-06-22] MEDS ORDERED: FINA5TAB2 PO (11:42)
[2018-06-22] MEDS ORDERED: TRAZ-160 PO (11:42)
[2018-06-22] MEDS ORDERED: ACET1TAB55 PO (11:42)
[2018-06-22] MEDS ORDERED: BETH10TA3 PO (11:42)
[2018-06-22] MEDS ORDERED: FLUT22IN INH (11:42)
[2018-06-22] MEDS ORDERED: GABA-1171 PO (11:42)
[2018-06-22] MEDS ORDERED: DIVA500T94 PO (11:42)
[2018-06-22] MEDS: BETHANECHOL 10 MG TAB PO SCH ×3 (13:00→21:22)
[2018-06-22] MEDS ORDERED: ACETAMINOPHEN TAB 650MG DOSE (2X325MG) PO PRN (13:45)
[2018-06-22] MEDS: ACETAMINOPHEN TAB 650MG DOSE (2X325MG) PO PRN (17:33)
[2018-06-22] MEDS: SUCRALFATE 1 GM TAB PO SCH ×2 (17:41→21:22)
[2018-06-22 17:47] VITALS: BP 138/76
[2018-06-22] MEDS ORDERED: traZODone 50 MG TAB PO SCH (21:00)
[2018-06-22] MEDS: GABAPENTIN 100 MG CAP PO SCH (21:22)
[2018-06-22] MEDS: CitaloPRAM (CeleXA) 20 MG TAB PO SCH (21:22)
[2018-06-22] MEDS: DIVALPROEX 500 MG TAB PO SCH (21:23)
[2018-06-22] MEDS: FLUTICASONE HFA 220 MCG 12 GM INHALER (FLOVENT) INH SCH (21:23)
[2018-06-23] MEDS ORDERED: NIFEdipine 30 MG XL TAB PO ONE (06:00)
[2018-06-23] MEDS ORDERED: LORazepam 1 MG TAB PO PRN (06:15)
[2018-06-23 06:16] LABS: HEMATOCRIT 37.5 % (42.0-52.0); HEMOGLOBIN 12.4 g/dl (13.5-17.5); MEAN CORPUSCULAR HEMOGLOBIN 30.8 pg (27.0-33.0); MEAN CORPUSCULAR HGB CONC 33.1 g/dl (32.0-36.5); MEAN CORPUSCULAR VOLUME 93.3 fl (80.0-96.0); PLATELET COUNT, AUTOMATED 227 10^3/uL (150-450); RED BLOOD COUNT 4.02 10^6/uL (4.30-6.10); WHITE BLOOD COUNT 7.8 10^3/uL (4.0-10.0)
[2018-06-23] MEDS: SUCRALFATE 1 GM TAB PO SCH ×4 (06:32→21:53)
[2018-06-23] MEDS: MECLIZINE 12.5 MG TAB PO PRN (06:32)
[2018-06-23 06:43] VITALS: BP 137/89
--- NOTE | 2018-06-23 06:44 | REPVR ---
EXAM: CT Head Without Contrast EXAM DATE/TIME: 06/23/2018 6:13 AM CLINICAL HISTORY: 52 years old, male; Injury or trauma; Fall; Initial encounter; Blunt trauma (contusions or hematomas); Consciousness not specified; Additional info: Left sided head injury sustained from fall TECHNIQUE: Axial computed tomography images of the head/brain without contrast. All CT scans at this facility use at least one of these dose optimization techniques: automated exposure control; mA and/or kV adjustment per patient size (includes targeted exams where dose is matched to clinical indication); or iterative reconstruction. COMPARISON: CT Head without contrast 03/31/2018 11:46 PM FINDINGS: Brain: Normal. No hemorrhage. No significant white matter disease. No edema. Ventricles: Normal. No ventriculomegaly. Bones/joints: Unremarkable. No acute fracture. Sinuses: There is moderate left maxillary sinus mucosal thickening. There is minimal right maxillary sinus mucosal thickening. Mastoid air cells: Visualized mastoid air cells are unremarkable. No mastoid effusion. Soft tissues: Unremarkable. IMPRESSION: 1. No CT evidence of intracranial hemorrhage, mass effect or midline shift. 2. Moderate left and minimal right maxillary sinus mucosal thickening. Electronically signed by: Escobar Chavez On 06/23/2018 06:44:15 AM
[2018-06-23 06:51] LABS: BLOOD UREA NITROGEN 13 MG/DL (7-18); CALCIUM LEVEL 8.3 MG/DL (8.5-10.1); CARBON DIOXIDE LEVEL 28 MEQ/L (21-32); CHLORIDE LEVEL 110 MEQ/L (98-107); CREATININE FOR GFR 1.03 MG/DL (0.70-1.30); GLOMERULAR FILTRATION RATE > 60.0 (>56); GLUCOSE, FASTING 99 MG/DL (70-100); MAGNESIUM LEVEL 2.2 MG/DL (1.8-2.4); SODIUM LEVEL 144 MEQ/L (136-145); TROPONIN I < 0.02 NG/ML (< 0.10); VALPROIC ACID (DEPAKOTE) 89.1 UG/ML (50.0-100.0)
--- NOTE | 2018-06-23 07:03 | REPVR ---
EXAM: CT Cervical Spine Without Contrast EXAM DATE/TIME: 06/23/2018 6:13 AM CLINICAL HISTORY: 52 years old, male; Injury or trauma; Fall; Initial encounter; Blunt trauma TECHNIQUE: Axial computed tomography images of the cervical spine without intravenous contrast. All CT scans at this facility use at least one of these dose optimization techniques: automated exposure control; mA and/or kV adjustment per patient size (includes targeted exams where dose is matched to clinical indication); or iterative reconstruction. Coronal and sagittal reformatted images were created and reviewed. COMPARISON: No relevant prior studies available. FINDINGS: Vertebrae: No acute fracture. Normal alignment. Discs/Spinal canal/Neural foramina: There is C1-C2 degenerative and productive changes. Soft tissues: Unremarkable. Lungs: Significant emphysematous changes seen in the partially imaged lung apices. IMPRESSION: 1. No CT evidence of traumatic cervical spine injury. 2. Emphysematous changes in the partially imaged lung apices. Electronically signed by: Escobar Chavez On 06/23/2018 07:02:22 AM
[2018-06-23] MEDS: PANTOPRAZOLE 40MG TAB (PROTONIX) PO SCH (08:55)
[2018-06-23] MEDS: DULoxetine 30 MG CAP (CYMBALTA) PO SCH (08:55)
[2018-06-23] MEDS: DIVALPROEX 500 MG TAB PO SCH ×2 (08:55→21:53)
[2018-06-23] MEDS: FLUTICASONE HFA 220 MCG 12 GM INHALER (FLOVENT) INH SCH ×2 (08:55→21:54)
[2018-06-23] MEDS: THIAMINE 100 MG TAB PO SCH (08:56)
[2018-06-23] MEDS: GABAPENTIN 100 MG CAP PO SCH ×2 (08:56→21:53)
[2018-06-23] MEDS: CitaloPRAM (CeleXA) 20 MG TAB PO SCH ×2 (08:56→21:53)
[2018-06-23] MEDS: FOLIC ACID 1 MG TAB PO SCH (08:56)
[2018-06-23] MEDS: VITAMIN D 1,000 INTERNATIONAL UNITS TABLET PO SCH (08:56)
[2018-06-23] MEDS: NICOTINE 21MG/24HR 1 EA TRANSDERMAL TD SCH (08:57)
[2018-06-23] MEDS: FINASTERIDE 5 MG TAB PO SCH (08:59)
[2018-06-23] MEDS: BETHANECHOL 10 MG TAB PO SCH ×4 (08:59→21:53)
[2018-06-23 09:02] VITALS: BP 138/90
[2018-06-23 10:33] VITALS: BP 138/85
--- NOTE | 2018-06-23 11:19 | CR ---
DATE OF CONSULTATION: 06/23/2018 This is a consult for the psychiatric team, Dr. Morton, medical management status post fall versus presyncope. HISTORY OF PRESENT ILLNESS: The patient is a 52-year-old male. He has a significant past medical history of depression, alcohol abuse, hypertension, chronic obstructive pulmonary disease (COPD), seizure disorder. He was admitted to the mental health facility here at [facility] on 06/22/2018 for depressive symptoms and suicidal ideation. He had a fall episode earlier during the admission, and it is second episode of fall or presyncope, unclear what exactly occurred, as the patient states he was using the bathroom. The patient seems very detached from the situation, and the history is somewhat limited, that he is very slow to respond. As per the patient's account, he was up using the bathroom with intent of fixing his hair. He states he subsequently fell and hit his head on the bathroom sink. He is unsure if there was any loss of consciousness. He denies any chest pain, shortness of breath. He denies any palpitations, but again he is unaware if he lost consciousness. He states usually with his seizures, he tends to urinate and have jerky-type movements. He denied any urination. He has no dentures or tongue-biting, and he could not recall whether there were any jerky-type movements preceding or after the fall. There does not appear to be any postictal confusion, though the patient is somewhat limited during the examination. His blood pressure is notably elevated at 170/100, status post his fall versus presyncope. There are no focal neurological deficits on the examination. Again, the patient seems rather detached from the situation, but neurologically his neurological examination appears to be intact. His Depakote levels on admission were 51, which are in the therapeutic range. PAST MEDICAL HISTORY: See history of present illness (HPI). PAST SURGICAL HISTORY: Unable to obtain. SOCIAL HISTORY: He is a former alcohol abuser. The patient states prior to being admitted to the mental health facility, on Sunday morning he had five beers. He denies the daily drinking of alcohol. He was not forthcoming in regard to social history. ALLERGIES: No known drug allergies. CURRENT MEDICATION LIST: Includes: - Depakote - diltiazem - Celexa - hydroxyzine - Spiriva - trazodone - Carafate FAMILY HISTORY: Is noncontributory. REVIEW OF SYSTEMS: A 12-point review of systems was completed, all of which were negative except those listed in the history of present illness (HPI). VITAL SIGNS ON ADMISSION: Status post fall, he is afebrile, respiratory rate of 20, saturating at 98% on room air, heart rate of 71, blood pressure of 170/100. PHYSICAL EXAMINATION: GENERAL: He appears well-nourished, in no apparent distress. HEAD: Is normocephalic, atraumatic. NECK: Is supple. No jugular venous pressure (JVP). LUNGS: Appear clear to auscultation, though diminished breath sounds. CARDIOVASCULAR: Regular rate and rhythm. Normal S1, S2. ABDOMEN: Is soft, nontender, nondistended. SKIN: Is intact. EXTREMITIES: No pitting edema or calf tenderness. NEUROLOGICAL EXAMINATION: He appears alert and oriented. There are no focal neurological deficits. Power and sensation appear to be intact. ASSESSMENT: Fall versus presyncope, unclear. The plan, will gets laboratories. Differential diagnoses includes mechanical fall versus less likely seizure, arhythmia versus possibly alcohol withdrawal. For now, will order Clinical [place] Withdrawal Assessment (CIWA) scores. Ativan as needed as per the CIWA protocol. Will start the patient on vitamin D, as he seems to have a history of frequent falls. Would avoid sedative medication. The patient is on trazodone nightly. Unclear if this has precipitated his fall. There is a standing order. Will get a basic laboratory. Complete metabolic panel (CMP). Basic metabolic profile (BMP). Magnesium. As well as prolactin, but this is unlikely to be a seizure. There appears to be no postictal confusion. A CT head ordered as per the primary team to rule out any intracranial bleed. Would also get a CT of the cervical spine. Will give nifedipine 30 mg by mouth and recheck his vital signs as per protocol. Will get troponins and an electrocardiogram (EKG). The etiology of this fall versus possible syncope, near syncope unclear based on the at bedtime. Will followup his laboratories. Medicine will continue to follow. Thank you for allowing me to participate in the care of this patient.
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
[2018-06-23] MEDS: TIOTROPIUM INHALER/CAPSULE (SPIRIVA) INH SCH (11:50)
[2018-06-23 12:19] LABS: ALBUMIN 3.4 GM/DL (3.2-5.2); ALT/SGPT 18 U/L (12-78); BILIRUBIN,DIRECT 0.1 MG/DL (0.0-0.2); BILIRUBIN,TOTAL 0.4 MG/DL (0.2-1.0); TOTAL PROTEIN 6.7 GM/DL (6.4-8.2)
--- NOTE | 2018-06-23 14:36 | ECGEPIP ---
Stationary ECG Study [facility] Test Date: 2018-06-23 Pat Name: KATE JOSEPH Department: Room: [place] [address] Gender: M Snow Ranger: JANAE : 1965 Requested By: RADHA SUNDAY Order Number: [id number] Reading MD: Mihir Calix Measurements Intervals [place] Rate: 60 P: 70 GA: 176 QRS: 32 QRSD: 72 T: 52 QT: 373 QTc: 375 Interpretive Statements Normal sinus rhythm Incomplete right bundle branch block No significant change since prior tracing of 04/02/2018 Electronically Signed On 06-23-2018 14:36:20 EDT by Mihir Calix
[2018-06-23 17:58] VITALS: BP 142/89
--- NOTE | 2018-06-23 20:53 | IPN ---
DATE: 06/23/2018 SUBJECTIVE: Patient is seen and examined in the inpatient mental health unit ([facility]). Patient denies any acute complaints. When asking patient regarding his alcohol usage, he is very irritated. He stated his last drink was last . Patient stated at baseline he is not taking medication as instructed. Before patient , the patient was taking by mouth of Depakote. OBJECTIVE: VITAL SIGNS: Temperature 97.7, pulse 72, respiration rate 16, blood pressure 137/89, pulse oximetry 99% in room air. GENERAL: Patient is alert and awake, no sign of acute distress. HEENT: Normocephalic, atraumatic. Extraocular motors grossly intact. CARDIOVASCULAR: Positive S1, S2, regular rate. LUNGS: Clear to auscultation bilaterally. ABDOMEN: Soft, nontender, positive bowel sounds. EXTREMITIES: No apparent edema. LABORATORY DATA: WBC 7.8, hemoglobin 12.4, hematocrit 37.5, platelet count 227, sodium 144, potassium 4, chloride 110, carbon dioxide 28, BUN 13, creatinine 1.03, GFR greater than 60, fasting glucose 99, calcium 8.3, magnesium 2.2, total bilirubin 0.4, direct bilirubin 0.1, AST 14, ALT 18, alkaline phosphatase 57, troponin I is less than 0.02, total protein 6.7, albumin 3.4, prolactin level pending. Valproic acid level is 89.1. IMAGING STUDIES: CT of the head without contrast demonstrates no CT evidence of intracranial hemorrhage, mass effect, or midline shift. Moderate left and minimal right maxillary sinus mucosal thickening. CT of the cervical spine without contrast demonstrated no CT evidence of traumatic cervical spine injury. Emphysematous changes in the partially imaged lung. ASSESSMENT AND PLAN: 1. Hypertension. Patient is not compliant with medication at home. Patient is restarted on Cardizem. Blood pressure is in satisfactory range. 2. Fall. According to the patient, patient had a fall. Patient had a recent diagnosis of seizure. CT of the head and neck does not demonstrate any abnormalities. Valproic acid level is within satisfactory range. Patient does have alcohol usage. Patient's last drink was last . According to patient, patient continues on Clinical [place] Withdrawal Assessment (CIWA) protocol. Followup with prolactin level. 3. Chronic obstructive pulmonary disease (COPD). No sign of exacerbation at this moment. Continue to monitor. 4. Seizure disorder, on Depakote. 5. Psychiatric disorder including bipolar, posttraumatic stress disorder (PTSD), borderline personality disorder, suicidal attempt/ideation. Refer psychiatric condition and management to psychiatry. 6. Deep venous thrombosis (DVT) prophylaxis. Encourage ambulation.
[2018-06-23] MEDS: IPRATROPIUM 0.5MG/ALBUTEROL 2.5MG INH SOL UD 3ML (DUONEB)(J7620) NEB SCH (21:00)
[2018-06-23] MEDS: traZODone 50 MG TAB PO SCH (21:54)
[2018-06-23] MEDS: hydrOXYzine 50 MG TAB PO PRN (23:04)
[2018-06-24 06:00] VITALS: BP 145/93
[2018-06-24] MEDS: SUCRALFATE 1 GM TAB PO SCH ×4 (06:34→21:14)
[2018-06-24 07:22] LABS: VALPROIC ACID (DEPAKOTE) 108.9 UG/ML (50.0-100.0)
[2018-06-24 09:00] VITALS: BP 145/93
[2018-06-24] MEDS: DIVALPROEX 500 MG TAB PO SCH (09:00)
[2018-06-24] MEDS: IPRATROPIUM 0.5MG/ALBUTEROL 2.5MG INH SOL UD 3ML (DUONEB)(J7620) NEB SCH ×2 (09:18→21:00)
[2018-06-24] MEDS: GABAPENTIN 100 MG CAP PO SCH (09:33)
[2018-06-24] MEDS: DULoxetine 30 MG CAP (CYMBALTA) PO SCH (09:33)
[2018-06-24] MEDS: FINASTERIDE 5 MG TAB PO SCH (09:33)
[2018-06-24] MEDS: FOLIC ACID 1 MG TAB PO SCH (09:33)
[2018-06-24] MEDS: VITAMIN D 1,000 INTERNATIONAL UNITS TABLET PO SCH (09:33)
[2018-06-24] MEDS: PANTOPRAZOLE 40MG TAB (PROTONIX) PO SCH (09:33)
[2018-06-24] MEDS: THIAMINE 100 MG TAB PO SCH (09:33)
[2018-06-24] MEDS: CitaloPRAM (CeleXA) 20 MG TAB PO SCH ×2 (09:33→21:14)
[2018-06-24] MEDS: NICOTINE 21MG/24HR 1 EA TRANSDERMAL TD SCH (09:33)
[2018-06-24] MEDS: FLUTICASONE HFA 220 MCG 12 GM INHALER (FLOVENT) INH SCH ×2 (09:34→21:14)
[2018-06-24] MEDS: BETHANECHOL 10 MG TAB PO SCH ×4 (09:34→21:14)
[2018-06-24] MEDS: MECLIZINE 12.5 MG TAB PO PRN (09:39)
[2018-06-24] MEDS: TIOTROPIUM INHALER/CAPSULE (SPIRIVA) INH SCH (09:40)
[2018-06-24 10:25] LABS: PROLACTIN 8.8 NG/ML (2.1-17.7)
--- NOTE | 2018-06-24 10:48 | HPE ---
DATE OF ADMISSION: 06/22/2018 Please refer to psychiatric history and evaluation for further details on this admission. This examination and history is intended for medical issues which may need treatment, followup, or consult on this 52-year-old male. PRIMARY CARE PROVIDER: Dr. Chu in [place]. Patient had a consult last night and a followup by Dr. Araiza for having had a fall and question of seizure. See consult by Sunday. ALLERGIES: Bee venom, hornet venom, wasp venom, protein. SOCIAL HISTORY: Patient is a . He smokes about a half a pack of cigarettes a day. He has a history of alcohol abuse. History of marijuana use. Denies any IV drug use. FAMILY HISTORY: Noncontributory. EKG showed sinus rhythm rate of 60, incomplete right bundle branch block. No significant change from prior tracing of 04/02/2018. PAST MEDICAL HISTORY: Anxiety, depression, suicidal ideation, alcohol abuse, asthma, COPD, hypertension, benign prostatic hypertrophy, GERD, history of hepatitis C that was treated, history of myocardial infarction in 2007. PAST SURGICAL HISTORY: Knee surgery, foot surgery, angioplasty in 2007. LABORATORY STUDIES: White count 7.8, hemoglobin 12.4, hematocrit 37.5, platelets 227, sodium 144, potassium 4.0, chloride 110, CO2 28, BUN 13, creatinine 1.03, prolactin level is pending, troponin was less than 0.02, valproic acid was initially 51.4 on the and the morning of the 89.1 will repeat in the morning. IMAGING: He had a CT of his head after a fall which showed no hemorrhage, no significant white matter disease, no edema, ventricles are normal. No CT evidence of intracranial hemorrhage, mass effect or midline shift. Minimal sinus mucosal thickening. CT of the cervical spine no CT evidence of traumatic cervical spine injury. HOME MEDICATIONS: Alfuzosin Hydrochloride 10 mg by mouth daily, Nicotrol inhaler 1 puff as needed, acetaminophen 325 650 by mouth every 6 hours as needed for pain, bethanechol chloride 10 mg by mouth four times a day, citalopram 20 mg by mouth twice a day, diltiazem 120 by mouth daily, Depakote 1000 mg by mouth twice a day, Cymbalta 30 mg by mouth daily, Finasteride 5 mg by mouth daily, fluticasone, Flovent 220 mcg 2 puffs twice a day, folic acid 1 tab by mouth daily, gabapentin 200 mg by mouth twice a day, hydroxyzine 50 mg by mouth every 4 hours as needed anxiety, meclizine 12.5 mg three times a day as needed for dizziness, pantoprazole4 40 mg by mouth daily, sucralfate 1 gram by mouth before meals and at bedtime, thiamine 100 mg by mouth daily, Spiriva 1 inhalation every morning, trazodone 50 mg by mouth at bedtime and patient states that he DuoNeb nebulizer twice a day. REVIEW OF SYSTEMS: 10 systems review was done. No complaints of headache, no blurry or double vision, no fevers, no chills, no tinnitus, no hoarseness, no difficulty swallowing, no lightheadedness or vertigo. Cardiovascular: No complaints of chest pain, shortness of breath, palpitations or edema. Respiratory: No chronic cough. No sputum production. No hemoptysis, No orthopnea. No wheeze. He has a history of COPD currently clinically stable. GI: No nausea, vomiting, or diarrhea. No hematochezia. No melena. No complaints of abdominal pain. : No hematuria, dysuria, or frequency, History of BPH. Musculoskeletal: No joint redness or swelling. Endocrine: No polyuria, no polydipsia, polyphagia. Hematologic: No history of anemia. Neurologic: History of seizure disorder and questionable seizure activity with falls times two. Has had a consult with Sunday followed up by Dr. Araiza. Will followup on prolactin level. Psychiatric: See psychiatric history and physical. PHYSICAL EXAMINATION: This is a 52-year-old cooperative man in no acute distress. Height: 76 inches, weight 111.82 kg, BMI 30.0 kg. Patient is alert and oriented times three. Blood pressure 137/89, pulse 72, respirations 15, temperature 97.7. Patient is alert and oriented times three. Pupils are equal and reactive to light. EOM's are intact. Oropharynx is clear. Conjunctiva is normal. No facial asymmetry. Tongue is midline. Neck is supple without lymphadenopathy. No thyromegaly and no goiter. Carotids 2+ without bruit. Chest clear to auscultation without wheezes or retraction. Heart is regular. Abdomen is benign. Bowel sounds are positive. and rectal not done. Extremities show full range of motion. No cyanosis, clubbing, or edema. Peripheral pulses are palpable bilaterally. Skin is warm and dry. IMPRESSION AND PLAN: 1. Psychiatric plan per psychiatry. I think he will improve with restarting his Cardizem. 2. Fall. Continue protocol. Followup on Prolactin level. 3. COPD. Continue Spiriva and Flovent. DuoNeb twice a day. 4. Seizure disorder. Continue Depakote. Depakote level in the morning.
[2018-06-24 11:00] LABS: ALBUMIN 3.7 GM/DL (3.2-5.2); BILIRUBIN,DIRECT 0.1 MG/DL (0.0-0.2); BILIRUBIN,TOTAL 0.3 MG/DL (0.2-1.0); TOTAL PROTEIN 7.5 GM/DL (6.4-8.2)
--- NOTE | 2018-06-24 12:49 | MHIPNPDOC ---
[facility] Progress Note Progress Note DATE OF SERVICE: 06/24/18 HISTORY: Patient is a 52 -year-old , male, with a history of bipolar d/o, OD, cutting, last d/c 03/08/18 from [facility] who was admitted after he was johnson sferred from [facility] s/p overdose on depakote and cutting his upper left thigh deeply with a razor he stated in the ED after he drank alcohol and had a verbal argument with his brother causing him extreme anxiety. Pt stated in the ED he did not want to kill himself, just wanted to relieve his anxiety so he took the OD and cut himself. He has a history of cutting, with scars present on thighs and abdomen in the ED from when he's cute to cope with anxiety in the past. Pt stated he recently saw his therapist Cat at [facility] and was utilizing his safety plan he had worked on with her which is why he called Crisis Hotline to inform them of OD which caused him to be picked up and brought to [facility] then [facility] ED. Pt in ED also endorsing VH most likely related to grief and guilt of seeing his father by a shed at home occasionally when he takes the trash out. (Per ED, killed father at 12y/o and endorse guilt in ED over it) Denied any other hallucinations in ED. Denied SI/HI, thoughts to self harm in ED VITAL SIGNS: See below. NEW TEST RESULTS: See below CURRENT MEDICATIONS: See below. MENTAL STATUS EXAMINATION: Patient is a 52-year old male, who is alert, cooperative, dressed in hospital clothes. Speech: Is normal, spontaneous and fluent, normal rate, rhythm, rate, tone and volume. Language skills are good Thought processes including: good Thought content: anxious thoughts, depressed thoughts, cognitive distortions (negative) Description of abnormal or psychotic thoughts: Denies SI/ denies HI, denies AV hallucinations, admits some paranoid thoughts Judgment: Poor Insight: Poor Orientation: x 3 Recent and remote memory: good Attention span and concentration: fair Language: normal. Fund of knowledge: average. Mood: anxious. Affect: congruent with mood. DIAGNOSES: 1. PTSD 2. Major depressive disorder, recurrent, severe 3. WILLIAN ASSESSMENT: Patient is expressing his disgust about a physician who evaluated him over the weekend after he fainted in the Unit. he is angry because he didn't know there was a yoga group in the morning, however, he is using a wheel chair and staff might have thought he couldn't attend the class (group) because of it. I've increase his Gabapentin because it will help him with pain and anxiety. MANAGEMENT PLAN: Increase Gabapentin to 400 mgs PO TID TIME SPENT: 35 minutes. Vital Signs Vital Signs Date Time Temp Pulse Resp B/P (MAP) Pulse Ox O2 Delivery O2 Flow Rate FiO2 06/24/18 10:09 94 122/70 06/24/18 06:00 107.5 06/24/18 06:00 18 06/22/18 17:47 99 06/22/18 09:47 Room Air Laboratory Data 24H Labs Laboratory Tests 2 06/24/18 06:34: Aspartate Amino Transf (AST/SGOT) 14, Alanine Aminotransferase (ALT/SGPT) 22, Alkaline Phosphatase 59, Total Bilirubin 0.3, Direct Bilirubin 0.1, Total Protein 7.5, Albumin 3.7, Albumin/Globulin Ratio 0.97L, Amylase Level 43, Lipase 97, Valproic Acid (Depakene) Level 108.9H Current Medications Current Medications Acetaminophen (Tylenol Tab) 650 mg Q6H PRN PO PAIN; Start 06/22/18 at 13:45; Status Cancel Acetaminophen (Tylenol Tab) 650 mg Q6HP PRN PO HEADACHE or DISCOMFORT Last administered on 06/22/18at 17:33; Start 06/22/18 at 11:15 Al Hydrox/Mg Hydrox/Simethicone (Mylanta) 30 ml Q4HP PRN PO HEARTBURN/INDIGESTION; Start 06/22/18 at 11:15 Albuterol/ Ipratropium (Duoneb (Ipr 0.5mg/Alb 2.5mg)) 3 ml BID NEB Last administered on 06/24/18at 09:18; Start 06/23/18 at 21:00 Bethanechol Chloride (Urecholine) 10 mg QID PO Last administered on 06/24/18at 09:34; Start 06/22/18 at 13:00 Citalopram Hydrobromide (CeleXA) 20 mg BID PO Last administered on 06/24/18at 09:33; Start 06/22/18 at 21:00 Diltiazem HCl (Cardizem Cd) 120 mg DAILY PO Last administered on 06/24/18 10:09; Start 06/23/18 at 09:00 Divalproex Sodium (Depakote) 1,000 mg BID PO Last administered on 06/23/18 21:53; Start 06/22/18 at 21:00; Status Future hold Duloxetine HCl (Cymbalta) 30 mg DAILY PO Last administered on 06/24/18 09:33; Start 06/23/18 at 09:00 Finasteride (Proscar) 5 mg DAILY PO Last administered on 06/24/18 09:33; Start 06/23/18 at 09:00 Fluticasone Propionate (Flovent Hfa 220mcg) 2 puff RBID INH Last administered on 06/24/18 09:34; Start 06/22/18 at 20:00 Folic Acid (Folic Acid) 1 mg DAILY PO Last administered on 06/24/18 09:33; Start 06/23/18 at 09:00 Gabapentin (Neurontin) 200 mg BID PO Last administered on 06/24/18 09:33; Start 06/22/18 at 21:00; Stop 06/24/18 at 12:36; Status DC Gabapentin (Neurontin) 400 mg BID PO ; Start 06/24/18 at 21:00 Home Med (Med Rec Complete!) ASDIRECTED XX ; Start 06/22/18 at 11:45; Stop 06/22/18 at 11:45; Status DC Hydroxyzine HCl (Atarax) 50 mg Q4HP PRN PO ANXIETY Last administered on 06/23/18 23:04; Start 06/22/18 at 16:00 Lorazepam (Ativan) 1 mg Q4HP PRN PO as per [place] protocol; Start 06/23/18 at 06:15 Magnesium Hydroxide (Milk Of Magnesia) 30 ml DAILYPRN PRN PO CONSTIPATION; Start 06/22/18 at 11:15 Meclizine HCl (Antivert) 12.5 mg TID PRN PO DIZZINESS Last administered on 06/24/18 09:39; Start 06/22/18 at 13:45 Nicotine (Nicoderm Cq 21mg) 1 patch DAILY TD Last administered on 06/24/18 09:33; Start 06/22/18 at 09:00 Pantoprazole Sodium (Protonix) 40 mg DAILY PO Last administered on 06/24/18 09:33; Start 06/23/18 at 09:00 Sucralfate (Carafate) 1 gm ACHS PO Last administered on 06/24/18 12:09; Start 06/22/18 at 17:30 Thiamine HCl (Thiamine HCl) 100 mg DAILY PO Last administered on 06/24/18 09:33; Start 06/23/18 at 09:00 Tiotropium [place] (Spiriva Handihaler) 1 inhalation DAILY@0800 INH Last a dministered on 06/24/18 09:40; Start 06/23/18 at 08:00 Trazodone HCl (Desyrel) 50 mg QHS PO Last administered on 06/22/18 22:06; Start 06/22/18 at 21:00; Stop 06/23/18 at 05:45; Status DC Trazodone HCl (Desyrel) 50 mg QHS PO Last administered on 06/23/18 21:54; Start 06/23/18 at 21:00 Trazodone HCl (Desyrel) 50 mg QHSP PRN PO INSOMNIA; Start 06/22/18 at 11:15; Stop 06/22/18 at 14:08; Status DC Vitamin D (Vitamin D) 2,000 units DAILY PO Last administered on 06/24/18 09:33; Start 06/23/18 at 09:00 Allergies Coded Allergies: Bee Venom (Verified Allergy, Severe, THROAT SWELLS, 04/01/18) Hornet Venom (Verified Allergy, Severe, 04/01/18) Wasp Venom Protein (Verified Allergy, Severe, THROAT SWELLS, 04/01/18) MICHELLE VALVERDE MD Jun 24, 2018 12:49
[2018-06-24] MEDS: ACETAMINOPHEN TAB 650MG DOSE (2X325MG) PO PRN (15:35)
[2018-06-24 18:49] VITALS: BP 120/71
[2018-06-24] MEDS: GABAPENTIN 400 MG CAP PO SCH (21:14)
[2018-06-24] MEDS: traZODone 50 MG TAB PO SCH (23:08)
[2018-06-25 06:20] VITALS: BP 150/88
[2018-06-25 06:48] VITALS: BP 144/90
[2018-06-25] MEDS: SUCRALFATE 1 GM TAB PO SCH ×4 (06:55→22:28)
[2018-06-25] MEDS: TIOTROPIUM INHALER/CAPSULE (SPIRIVA) INH SCH (07:31)
[2018-06-25] MEDS: FLUTICASONE HFA 220 MCG 12 GM INHALER (FLOVENT) INH SCH ×2 (07:31→22:30)
[2018-06-25] MEDS: CitaloPRAM (CeleXA) 20 MG TAB PO SCH ×2 (08:22→22:28)
[2018-06-25] MEDS: VITAMIN D 1,000 INTERNATIONAL UNITS TABLET PO SCH (08:22)
[2018-06-25] MEDS: BETHANECHOL 10 MG TAB PO SCH ×4 (08:22→22:28)
[2018-06-25] MEDS: NICOTINE 21MG/24HR 1 EA TRANSDERMAL TD SCH (08:22)
[2018-06-25] MEDS: FOLIC ACID 1 MG TAB PO SCH (08:22)
[2018-06-25] MEDS: DULoxetine 30 MG CAP (CYMBALTA) PO SCH (08:22)
[2018-06-25] MEDS: PANTOPRAZOLE 40MG TAB (PROTONIX) PO SCH (08:23)
[2018-06-25] MEDS: FINASTERIDE 5 MG TAB PO SCH (08:23)
[2018-06-25] MEDS: GABAPENTIN 400 MG CAP PO SCH ×2 (08:23→22:28)
[2018-06-25] MEDS: THIAMINE 100 MG TAB PO SCH (08:23)
[2018-06-25] MEDS: IPRATROPIUM 0.5MG/ALBUTEROL 2.5MG INH SOL UD 3ML (DUONEB)(J7620) NEB SCH ×2 (09:15→22:30)
[2018-06-25] MEDS: MECLIZINE 12.5 MG TAB PO PRN (16:08)
--- NOTE | 2018-06-25 18:00 | MHIPNPDOC ---
[facility] Progress Note Progress Note DATE OF SERVICE: 06/25/18 HISTORY: Patient is a 52 -year-old , male, with a history of bipolar d/o, OD, cutting, last d/c 03/08/18 from [facility] who was admitted after he was johnson sferred from [facility] s/p overdose on depakote and cutting his upper left thigh deeply with a razor he stated in the ED after he drank alcohol and had a verbal argument with his brother causing him extreme anxiety. Pt stated in the ED he did not want to kill himself, just wanted to relieve his anxiety so he took the OD and cut himself. He has a history of cutting, with scars present on thighs and abdomen in the ED from when he's cute to cope with anxiety in the past. Pt stated he recently saw his therapist Cat at [facility] and was utilizing his safety plan he had worked on with her which is why he called Crisis Hotline to inform them of OD which caused him to be picked up and brought to [facility] then [facility] ED. Pt in ED also endorsing VH most likely related to grief and guilt of seeing his father by a shed at home occasionally when he takes the trash out. (Per ED, killed father at 12y/o and endorse guilt in ED over it) Denied any other hallucinations in ED. Denied SI/HI, thoughts to self harm in ED VITAL SIGNS: See below. NEW TEST RESULTS: See below CURRENT MEDICATIONS: See below. MENTAL STATUS EXAMINATION: Patient is a 52-year old male, who is alert, cooperative, dressed in hospital clothes. Speech: Is normal, spontaneous and fluent, normal rate, rhythm, rate, tone and volume. Language skills are good Thought processes including: good Thought content: anxious thoughts, depressed thoughts, cognitive distortions (negative). He says that after speaking about the order of protection, his anxiety escalated to a 7/10 and his depression to a 6/10. Description of abnormal or psychotic thoughts: Denies SI/ denies HI, denies AV hallucinations, admits some paranoid thoughts (he became more paranoid after I explained that there are two persons that are requesting that he doesn't get close to their home. They live at different homes and each one would have an order of protection against him) Judgment: Poor Insight: Poor Orientation: x 3 Recent and remote memory: good Attention span and concentration: fair Language: normal. Fund of knowledge: average. Mood: anxious/irritable Affect: congruent with mood. DIAGNOSES: 1. PTSD 2. Major depressive disorder, recurrent, severe 3. 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 One of them was his ex fiancee, Thang and the other one was Jo Taylor. Thang said that she has a stay away order of protection so that the patient can't come near her and Jo Taylor who identified herself as the patient's sister in law d mitchell, said that he can't come near the house he has been living at, that is his brother's house. The patient became upset when I spoke with him and he was very clear that he was not upset at me or any other staff member but he was upset at the whole situation because just this morning he spoke with his brother and both of them were laughing and joking and his brother didn't tell him anything about an order of protection. He says that he has furniture, clothes, money and his dentures in there and he insists on calling his brother. TW explains that if he does it, he would be violating that order of protection but he says he is going to call, anyway. MANAGEMENT PLAN: Increase Gabapentin to 400 mgs PO TID TIME SPENT: 35 minutes. Vital Signs Vital Signs Date Time Temp Pulse Resp B/P (MAP) Pulse Ox O2 Delivery O2 Flow Rate FiO2 06/25/18 08:23 88 124/69 06/25/18 06:48 97.1 14 06/25/18 06:20 100 06/22/18 09:47 Room Air Current Medications Current Medications Acetaminophen (Tylenol Tab) 650 mg Q6H PRN PO PAIN; Start 06/22/18 at 13:45; Status Cancel Acetaminophen (Tylenol Tab) 650 mg Q6HP PRN PO HEADACHE or DISCOMFORT Last administered on 06/24/18at 15:35; Start 06/22/18 at 11:15 Al Hydrox/Mg Hydrox/Simethicone (Mylanta) 30 ml Q4HP PRN PO HEARTBURN/INDIGESTION; Start 06/22/18 at 11:15 Albuterol/ Ipratropium (Duoneb (Ipr 0.5mg/Alb 2.5mg)) 3 ml BID NEB Last administered on 06/25/18 09:15; Start 06/23/18 at 21:00 Bethanechol Chloride (Urecholine) 10 mg QID PO Last administered on 06/25/18 17:23; Start 06/22/18 at 13:00 Citalopram Hydrobromide (CeleXA) 20 mg BID PO Last administered on 06/25/18 08:22; Start 06/22/18 at 21:00 Diltiazem HCl (Cardizem Cd) 120 mg DAILY PO Last administered on 06/25/18 08:23; Start 06/23/18 at 09:00 Divalproex Sodium (Depakote) 1,000 mg BID PO Last administered on 06/23/18 21:53; Start 06/22/18 at 21:00; Status Future hold Duloxetine HCl (Cymbalta) 30 mg DAILY PO Last administered on 06/25/18 08:22; Start 06/23/18 at 09:00 Finasteride (Proscar) 5 mg DAILY PO Last administered on 06/25/18 08:23; Start 06/23/18 at 09:00 Fluticasone Propionate (Flovent Hfa 220mcg) 2 puff RBID INH Last administered on 06/25/18 07:31; Start 06/22/18 at 20:00 Folic Acid (Folic Acid) 1 mg DAILY PO Last administered on 06/25/18 08:22; Start 06/23/18 at 09:00 Gabapentin (Neurontin) 200 mg BID PO Last administered on 06/24/18at 09:33; Start 06/22/18 at 21:00; Stop 06/24/18 at 12:36; Status DC Gabapentin (Neurontin) 400 mg BID PO Last administered on 06/25/18 08:23; Start 06/24/18 at 21:00 Home Med (Med Rec Complete!) ASDIRECTED XX ; Start 06/22/18 at 11:45; Stop 06/22/18 at 11:45; Status DC Hydroxyzine HCl (Atarax) 50 mg Q4HP PRN PO ANXIETY Last administered on 3/17/19at 23:04; Start 06/22/18 at 16:00 Lorazepam (Ativan) 1 mg Q4HP PRN PO as per [facility] protocol; Start 06/23/18 at 06:15 Magnesium Hydroxide (Milk Of Magnesia) 30 ml DAILYPRN PRN PO CONSTIPATION; Start 06/22/18 at 11:15 Meclizine HCl (Antivert) 12.5 mg TID PRN PO DIZZINESS Last administered on 06/25/18 16:08; Start 06/22/18 at 13:45 Nicotine (Nicoderm Cq 21mg) 1 patch DAILY TD Last administered on 06/25/18 08:22; Start 06/22/18 at 09:00 Pantoprazole Sodium (Protonix) 40 mg DAILY PO Last administered on 06/25/18 08:23; Start 06/23/18 at 09:00 Sucralfate (Carafate) 1 gm ACHS PO Last administered on 06/25/18at 17:23; Start 06/22/18 at 17:30 Thiamine HCl (Thiamine HCl) 100 mg DAILY PO Last administered on 06/25/18at 08:23; Start 06/23/18 at 09:00 Tiotropium [place] (Spiriva Handihaler) 1 inhalation DAILY@0800 INH Last administered on 06/25/18at 07:31; Start 06/23/18 at 08:00 Trazodone HCl (Desyrel) 50 mg QHS PO Last administered on 06/22/18at 22:06; Start 06/22/18 at 21:00; Stop 06/23/18 at 05:45; Status DC Trazodone HCl (Desyrel) 50 mg QHS PO Last administered on 06/24/18at 23:08; Sta rt 06/23/18 at 21:00 Trazodone HCl (Desyrel) 50 mg QHSP PRN PO INSOMNIA; Start 06/22/18 at 11:15; Stop 06/22/18 at 14:08; Status DC Vitamin D (Vitamin D) 2,000 units DAILY PO Last administered on 06/25/18 08:22; Start 06/23/18 at 09:00 Allergies Coded Allergies: Bee Venom (Verified Allergy, Severe, THROAT SWELLS, 04/01/18) Hornet Venom (Verified Allergy, Severe, 04/01/18) Wasp Venom Protein (Verified Allergy, Severe, THROAT SWELLS, 04/01/18) MICHELLE VALVERDE MD Jun 25, 2018 17:51
[2018-06-25 18:19] VITALS: BP 137/75
[2018-06-25] MEDS: DIVALPROEX 500 MG TAB PO SCH (22:28)
[2018-06-25] MEDS: traZODone 50 MG TAB PO SCH (22:28)
[2018-06-26] MEDS: hydrOXYzine 50 MG TAB PO PRN (06:10)
[2018-06-26 06:24] VITALS: BP 160/102
[2018-06-26] MEDS: SUCRALFATE 1 GM TAB PO SCH ×4 (06:47→21:55)
[2018-06-26] MEDS: IPRATROPIUM 0.5MG/ALBUTEROL 2.5MG INH SOL UD 3ML (DUONEB)(J7620) NEB SCH ×3 (07:40→22:27)
[2018-06-26] MEDS: TIOTROPIUM INHALER/CAPSULE (SPIRIVA) INH SCH (07:49)
[2018-06-26] MEDS: FLUTICASONE HFA 220 MCG 12 GM INHALER (FLOVENT) INH SCH ×2 (07:49→21:55)
[2018-06-26] MEDS: NICOTINE 21MG/24HR 1 EA TRANSDERMAL TD SCH (09:17)
[2018-06-26] MEDS: DIVALPROEX 500 MG TAB PO SCH ×2 (09:18→21:55)
[2018-06-26] MEDS: FOLIC ACID 1 MG TAB PO SCH (09:18)
[2018-06-26] MEDS: PANTOPRAZOLE 40MG TAB (PROTONIX) PO SCH (09:18)
[2018-06-26] MEDS: GABAPENTIN 400 MG CAP PO SCH ×2 (09:18→21:55)
[2018-06-26] MEDS: CitaloPRAM (CeleXA) 20 MG TAB PO SCH ×2 (09:18→21:55)
[2018-06-26] MEDS: DULoxetine 30 MG CAP (CYMBALTA) PO SCH (09:18)
[2018-06-26] MEDS: THIAMINE 100 MG TAB PO SCH (09:18)
[2018-06-26] MEDS: BETHANECHOL 10 MG TAB PO SCH ×4 (09:18→21:55)
[2018-06-26] MEDS: FINASTERIDE 5 MG TAB PO SCH (09:18)
[2018-06-26] MEDS: VITAMIN D 1,000 INTERNATIONAL UNITS TABLET PO SCH (09:19)
[2018-06-26 13:35] VITALS: BP 140/90
[2018-06-26] MEDS: MECLIZINE 12.5 MG TAB PO PRN (15:46)
[2018-06-26 16:08] VITALS: BP 140/92
[2018-06-26 18:01] VITALS: BP 140/90
[2018-06-26] MEDS: traZODone 50 MG TAB PO SCH (21:55)
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
[2018-06-27 06:28] VITALS: BP 139/78
[2018-06-27] MEDS: SUCRALFATE 1 GM TAB PO SCH ×4 (07:05→21:32)
[2018-06-27] MEDS: IPRATROPIUM 0.5MG/ALBUTEROL 2.5MG INH SOL UD 3ML (DUONEB)(J7620) NEB SCH ×2 (09:29→21:31)
[2018-06-27] MEDS: FINASTERIDE 5 MG TAB PO SCH (09:34)
[2018-06-27] MEDS: VITAMIN D 1,000 INTERNATIONAL UNITS TABLET PO SCH (09:39)
[2018-06-27] MEDS: BETHANECHOL 10 MG TAB PO SCH ×4 (09:39→21:32)
[2018-06-27] MEDS: DIVALPROEX 500 MG TAB PO SCH ×2 (09:40→21:32)
[2018-06-27] MEDS: DULoxetine 30 MG CAP (CYMBALTA) PO SCH (09:41)
[2018-06-27] MEDS: FOLIC ACID 1 MG TAB PO SCH (09:41)
[2018-06-27] MEDS: NICOTINE 21MG/24HR 1 EA TRANSDERMAL TD SCH (09:41)
[2018-06-27] MEDS: CitaloPRAM (CeleXA) 20 MG TAB PO SCH ×2 (09:41→21:33)
[2018-06-27] MEDS: GABAPENTIN 400 MG CAP PO SCH ×2 (09:41→21:32)
[2018-06-27] MEDS: PANTOPRAZOLE 40MG TAB (PROTONIX) PO SCH (09:43)
[2018-06-27] MEDS: THIAMINE 100 MG TAB PO SCH (09:43)
[2018-06-27] MEDS: FLUTICASONE HFA 220 MCG 12 GM INHALER (FLOVENT) INH SCH ×2 (09:44→21:32)
[2018-06-27] MEDS: TIOTROPIUM INHALER/CAPSULE (SPIRIVA) INH SCH (10:31)
[2018-06-27] MEDS ORDERED: OLANZapine ORAL DISINTEGRATING TAB 5MG PO STA (16:45)
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
[2018-06-27 18:00] VITALS: BP 142/86
[2018-06-27] MEDS: traZODone 50 MG TAB PO SCH (21:32)
[2018-06-28] MEDS: SUCRALFATE 1 GM TAB PO SCH ×2 (06:42→12:29)
[2018-06-28 06:46] VITALS: BP 128/68
[2018-06-28] MEDS: FLUTICASONE HFA 220 MCG 12 GM INHALER (FLOVENT) INH SCH (07:27)
[2018-06-28] MEDS: TIOTROPIUM INHALER/CAPSULE (SPIRIVA) INH SCH (07:27)
[2018-06-28] MEDS: IPRATROPIUM 0.5MG/ALBUTEROL 2.5MG INH SOL UD 3ML (DUONEB)(J7620) NEB SCH (08:19)
[2018-06-28] MEDS: THIAMINE 100 MG TAB PO SCH (09:37)
[2018-06-28] MEDS: FINASTERIDE 5 MG TAB PO SCH (09:37)
[2018-06-28] MEDS: VITAMIN D 1,000 INTERNATIONAL UNITS TABLET PO SCH (09:37)
[2018-06-28] MEDS: GABAPENTIN 400 MG CAP PO SCH (09:37)
[2018-06-28 09:38] VITALS: BP 120/77
[2018-06-28] MEDS: DULoxetine 30 MG CAP (CYMBALTA) PO SCH (09:38)
[2018-06-28] MEDS: PANTOPRAZOLE 40MG TAB (PROTONIX) PO SCH (09:38)
[2018-06-28] MEDS: FOLIC ACID 1 MG TAB PO SCH (09:38)
[2018-06-28] MEDS: CitaloPRAM (CeleXA) 20 MG TAB PO SCH (09:38)
[2018-06-28] MEDS: DIVALPROEX 500 MG TAB PO SCH (09:38)
[2018-06-28] MEDS: NICOTINE 21MG/24HR 1 EA TRANSDERMAL TD SCH (09:39)
[2018-06-28] MEDS: BETHANECHOL 10 MG TAB PO SCH ×2 (09:39→13:34)
[2018-06-28] MEDS ORDERED: ZYPR5TAB2 PO (11:03)
[2018-06-28] MEDS ORDERED: NICO21PAT TD (11:03)
[2018-06-28] MEDS ORDERED: GABA-845 PO (11:10)
[2018-06-28] MEDS ORDERED: GABAPENTIN 400 MG CAP PO SCH (16:00)
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
== END 2018-06-28 14:40 | disposition home or self-care (01) | DRG 882 ==
LOC: M ED 09:34 → M ED INP 11:07 → M PSY 11:47
PROVIDERS: ADMIT Psychiatry & Neurology Psychiatry; ATTEND Psychiatry & Neurology Psychiatry
DX: F43.10 Post-traumatic stress disorder, unspecified (principal); F33.2 Major depressive disorder, recurrent severe without psychotic features; F60.3 Borderline personality disorder; Z91.030 Bee allergy status; F10.10 Alcohol abuse, uncomplicated; G40.909 Epilepsy, unspecified, not intractable, without status epilepticus; J44.9 Chronic obstructive pulmonary disease, unspecified; F60.2 Antisocial personality disorder; R55 Syncope and collapse; I10 Essential (primary) hypertension; F17.210 Nicotine dependence, cigarettes, uncomplicated; I25.2 Old myocardial infarction; N40.0 Benign prostatic hyperplasia without lower urinary tract symptoms; F41.1 Generalized anxiety disorder; Z91.5 Personal history of self-harm; Z91.14 Patient's other noncompliance with medication regimen; Z62.810 Personal history of physical and sexual abuse in childhood; Z79.899 Other long term (current) drug therapy

== ENCOUNTER → 2018-11-26 | Outpatient (CLI) | payer MEDICARE ==
[~2018-11-26] MED LIST changes: +ACET1TAB55 PO; +BETH10TA3 PO; -CITA-230 PO; -CITA20TA4; +CITA20TA6; +CITA20TA7 PO; +CYMB1CAP5 PO; +DILT120C31 PO; -DILT120C82 PO; +DILT1CAP PO; +DIVA500T94 PO; -DULO1CAP2 PO; +DULO1CAP5 PO; -DULO30CA PO; +DULO30CA9 PO; +GABA-1171 PO; +GABA-845 PO; +HYDR1TAB33 PO; +HYDR50TA30 PO; -HYDRO50TAB PO; +MECL12.575 PO; +NICO21PAT TD; +NICOINH INH; +PANT40TA3 PO; +SUCR1TAB56 PO; +THIA100T11 PO; -TRAZ-160 PO; +TRAZ-252 PO; +TRAZ1TAB10 PO; -TRAZO50TA PO; +ZYPR5TAB2 PO
== END ==
LOC: M OUTALCOH 08:12
PROVIDERS: ATTEND Psychiatry & Neurology Psychiatry
DX: F10.20 Alcohol dependence, uncomplicated (principal)

== ENCOUNTER 2018-12-05 10:00 | Outpatient (RCR) | payer MEDICARE | END 2018-12-07 | LOC: M OUTALCOH 10:00 | PROVIDERS: ATTEND Psychiatry & Neurology Psychiatry | DX: F10.20 Alcohol dependence, uncomplicated (principal) ==

== ENCOUNTER 2019-01-02 10:00 | Outpatient (RCR) | payer MEDICARE | END 2019-01-06 | LOC: M OUTALCOH 10:00 | PROVIDERS: ATTEND Psychiatry & Neurology Psychiatry | DX: F10.20 Alcohol dependence, uncomplicated (principal) ==

== ENCOUNTER 2019-08-07 03:32 | Emergency (ER) | payer MEDICARE ==
[~2019-08-07] VITALS: Ht 193 cm; Wt 111.8 kg
[~2019-08-07 03:32] MED LIST changes: -ALFU10TA2 PO; +ALFU10TA3 PO; -MECL12.575 PO; +MECL12.589 PO
[2019-08-07 04:18] LABS: HEMATOCRIT 43.4 % (42.0-52.0); HEMOGLOBIN 14.6 g/dl (13.5-17.5); MEAN CORPUSCULAR HEMOGLOBIN 31.5 pg (27.0-33.0); MEAN CORPUSCULAR HGB CONC 33.6 g/dl (32.0-36.5); MEAN CORPUSCULAR VOLUME 93.7 fl (80.0-96.0); PLATELET COUNT, AUTOMATED 270 10^3/uL (150-450); RED BLOOD COUNT 4.63 10^6/uL (4.30-6.10); WHITE BLOOD COUNT 10.3 10^3/uL (4.0-10.0)
[2019-08-07] MEDS ORDERED: OXAZEPAM 15 MG CAP PO ONE (04:30)
[2019-08-07] MEDS ORDERED: LORazepam 2 MG/ML VIAL (J2060) IM ONE (04:45)
[2019-08-07 05:03] LABS: AMPHETAMINES LEVEL URINE NEGATIVE (NEGATIVE); BARBITURATES URINE NEGATIVE (NEGATIVE); BENZODIAZEPINES URINE NEGATIVE (NEGATIVE); CANNABINOIDS URINE NEGATIVE (NEGATIVE); COCAINE METABOLITE URINE NEGATIVE (NEGATIVE); METHADONE URINE NEGATIVE (NEGATIVE); OPIATES URINE NEGATIVE (NEGATIVE); PHENCYCLIDINE URINE NEGATIVE (NEGATIVE)
[2019-08-07 05:22] LABS: ACETAMINOPHEN LEVEL < 2.0 UG/ML (10.0-30.0); ALT/SGPT 24 U/L (12-78); BILIRUBIN,DIRECT 0.1 MG/DL (0.0-0.2); BILIRUBIN,TOTAL 0.2 MG/DL (0.2-1.0); BLOOD UREA NITROGEN 16 MG/DL (7-18); CARBON DIOXIDE LEVEL 25 MEQ/L (21-32); CHLORIDE LEVEL 106 MEQ/L (98-107); CREATININE FOR GFR 1.05 MG/DL (0.70-1.30); ETHYL ALCOHOL (ETHANOL) 0.181 % (0.000-0.010); GLOMERULAR FILTRATION RATE > 60.0 (>56); GLUCOSE, FASTING 96 MG/DL (70-100); POTASSIUM SERUM 4.5 MEQ/L (3.5-5.1); SALICYLATE LEVEL 3.6 MG/DL (5.0-30.0); SODIUM LEVEL 137 MEQ/L (136-145); VALPROIC ACID (DEPAKOTE) 13.9 UG/ML (50.0-100.0)
[2019-08-07] MEDS ORDERED: ACETAMINOPHEN TAB 650MG DOSE (2X325MG) PO ONE (08:15)
[2019-08-07] MEDS ORDERED: BOOSTRIX/ADACEL VACCINE (DIPHTH/PERTUSS/ACELL/TETANUS) 0.5ML SYR IM ONE (14:15)
[2019-08-07 14:43] VITALS: BP 143/97
== END 2019-08-07 15:17 | disposition home or self-care (01) ==
LOC: M ED 03:32
DX: F43.0 Acute stress reaction (principal); F10.120 Alcohol abuse with intoxication, uncomplicated; F17.218 Nicotine dependence, cigarettes, with other nicotine-induced disorders; Z91.030 Bee allergy status; I10 Essential (primary) hypertension; J44.9 Chronic obstructive pulmonary disease, unspecified; K74.60 Unspecified cirrhosis of liver
CPT/HCPCS: 80048; 80076; 80164; 80307; 84443; 85027; 90471; 90715; 96372; 99284; G0480; J2060

== ENCOUNTER 2019-09-05 16:49 | Emergency (ER) | payer MEDICARE ==
[~2019-09-05] VITALS: Ht 188 cm; Wt 117.0 kg
[2019-09-05] MEDS ORDERED: LORazepam 2 MG TAB PO PRN (17:30)
[2019-09-05] MEDS ORDERED: THIAMINE 100 MG TAB PO SCH (17:30)
[2019-09-05 18:14] VITALS: BP 150/90
[2019-09-05] MEDS ORDERED: LORazepam 2 MG TAB PO STA (18:31)
[2019-09-05 21:37] VITALS: BP 158/100
--- NOTE | 2019-09-06 00:20 | ECGEPIP ---
[facility] - ED Test Date: 2019-09-05 Pat Name: KATE JOSEPH Department: Room: - Gender: Male [employer] F[employer] Hat Blocker: : 1965 Requested By: Maris Baxter Order Number: [id number] Reading MD: Tacho Rodriguez Measurements Intervals [place] Rate: 86 P: 75 CA: 162 QRS: 37 QRSD: 92 T: 37 QT: 351 QTc: 421 Interpretive Statements SINUS RHYTHM POSSIBLE RIGHT VENTRICULAR CONDUCTION DELAY Baseline artifact Electronically Signed on 09-06-2019 0:20:07 EDT by Tacho Rodriguez
[2019-09-06] MEDS ORDERED: FOLIC ACID 1 MG TAB PO SCH (09:00)
[2019-09-06] MEDS ORDERED: MULTIVITAMINS/MINERALS THERAP 1 TAB PO SCH (09:00)
== END 2019-09-05 21:41 | disposition home or self-care (01) ==
LOC: M ED 16:49
DX: F19.10 Other psychoactive substance abuse, uncomplicated (principal); F31.9 Bipolar disorder, unspecified; I10 Essential (primary) hypertension; I25.2 Old myocardial infarction; J45.909 Unspecified asthma, uncomplicated; J44.9 Chronic obstructive pulmonary disease, unspecified; K21.9 Gastro-esophageal reflux disease without esophagitis; B19.9 Unspecified viral hepatitis without hepatic coma; N40.0 Benign prostatic hyperplasia without lower urinary tract symptoms; F17.200 Nicotine dependence, unspecified, uncomplicated; Z91.030 Bee allergy status; Z79.899 Other long term (current) drug therapy

== ENCOUNTER → 2020-06-18 | Outpatient (CLI) | payer MEDICARE ==
[~2020-06-18] MED LIST changes: +MECL-136 PO; -MECL12.589 PO; +PANT40TA29 PO; -PANT40TA3 PO
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
== END ==
LOC: M PAIN 08:30
PROVIDERS: ATTEND Family Medicine
DX: M51.17 Intervertebral disc disorders with radiculopathy, lumbosacral region (principal); G40.909 Epilepsy, unspecified, not intractable, without status epilepticus; F43.10 Post-traumatic stress disorder, unspecified; F31.9 Bipolar disorder, unspecified; J45.909 Unspecified asthma, uncomplicated; J44.9 Chronic obstructive pulmonary disease, unspecified; F17.210 Nicotine dependence, cigarettes, uncomplicated; Z79.891 Long term (current) use of opiate analgesic; Z79.899 Other long term (current) drug therapy; Z91.030 Bee allergy status

== ENCOUNTER 2020-09-08 09:37 | Inpatient (IN) | payer MEDICARE ==
[2020-09-08] VITALS (25 sets, daily range): BP systolic 91–150; BP diastolic 60–84
[~2020-09-08] VITALS: Ht 193 cm; Wt 155.8 kg
[~2020-09-08 09:37] MED LIST changes: +GABA-283 PO; -GABA-845 PO
[2020-09-08] MEDS: IPRATROPIUM 0.5MG/ALBUTEROL 2.5MG INH SOL UD 3ML (DUONEB) NEB SCH ×3 (11:35→20:57)
[2020-09-08] MEDS ORDERED: COMBIVENT RESPIMAT 100-20MCG INHALER 4GM INH SCH (12:00)
--- NOTE | 2020-09-08 12:38 | REP ---
INDICATION: ett, respiratory failure. COMPARISON: 09/08/2020 at 8:48 a.m. from an outside institution TECHNIQUE: Portable FINDINGS: The technique utilized in obtaining the radiograph has magnified the cardiac silhouette and attenuated the interstitial markings. Once again, there is a nasogastric tube in place the appearance of which is unchanged from the prior exam. An endotracheal tube is again seen the tip of which is in satisfactory position at the level of the aortic knob. There is no significant change in appearance of the lung potts. No acute patchy parenchymal opacities or pleural effusions have developed. There is no change in the osseous structures. The cardiomediastinal silhouette appears stable. The cardiac silhouette is magnified by technique. IMPRESSION: No significant change from the prior exam with findings as described above. <Electronically signed by Fredy Thomas > 09/08/20 [id number]
[2020-09-08] MEDS ORDERED: GABA-283 PO (12:42)
[2020-09-08] MEDS ORDERED: ALBU8.5H INH (12:42)
[2020-09-08] MEDS ORDERED: QUET400T PO (12:42)
[2020-09-08] MEDS ORDERED: INCR1INH INH (12:42)
[2020-09-08] MEDS ORDERED: BUSP10TA PO (12:42)
[2020-09-08] MEDS ORDERED: NALT50TA4 PO (12:42)
[2020-09-08] MEDS ORDERED: FLUT11IN INH (12:42)
[2020-09-08] MEDS ORDERED: PRAZ5CAP PO (12:42)
[2020-09-08] MEDS ORDERED: BETA115CR TOP (12:42)
[2020-09-08] MEDS ORDERED: DIVA500T9 PO (12:42)
[2020-09-08] MEDS ORDERED: ATIV2INJ5 IV (12:47)
[2020-09-08] MEDS ORDERED: PROP10IN IV (12:47)
[2020-09-08] MEDS ORDERED: CEFTINJ IV (12:47)
[2020-09-08] MEDS ORDERED: BANANA BAG IV (12:47)
[2020-09-08 12:50] LABS: ABG HCO3 22.9 MEQ/L (22.0-26.0); ABG O2 SATURATION 97.6 % (95.0-99.0); ABG PARTIAL PRESSURE CO2 44.7 mmHg (35.0-45.0); ABG PARTIAL PRESSURE O2 111.6 mmHg (75.0-100.0); ABG TOTAL CO2 24.3 MEQ/L (22.0-29.0); ABG pH (ARTERIAL) 7.327 UNITS (7.350-7.450)
[2020-09-08 13:02] LABS: BASO # 0.1 10^3/uL (0.0-0.2); BASO % 0.9 % (0.0-1.0); EOS # 0.4 10^3/uL (0.0-0.5); EOS % 3.5 % (0.0-3.0); HEMATOCRIT 27.6 % (42.0-52.0); HEMOGLOBIN 8.8 g/dl (13.5-17.5); LYMPH # 2.1 10^3/uL (1.5-5.0); LYMPH % 18.4 % (24.0-44.0); MEAN CORPUSCULAR HEMOGLOBIN 30.6 pg (27.0-33.0); MEAN CORPUSCULAR HGB CONC 31.9 g/dl (32.0-36.5); MEAN CORPUSCULAR VOLUME 95.8 fl (80.0-96.0); MONO # 1.3 10^3/uL (0.0-0.8); MONO % 11.4 % (2.0-8.0); NEUTROPHILS # 7.5 10^3/uL (1.5-8.5); NEUTROPHILS % 64.9 % (36.0-66.0); PLATELET COUNT, AUTOMATED 200 10^3/uL (150-450); RED BLOOD COUNT 2.88 10^6/uL (4.30-6.10); WHITE BLOOD COUNT 11.6 10^3/uL (4.0-10.0)
[2020-09-08] MEDS: PANTOPRAZOLE 40MG VIAL (C9113 PER 1) IV SCH (13:26)
[2020-09-08] MEDS: CHLORHEXIDINE GLUCONATE 0.12 % 15ML UDC (PERIDEX ORAL RINSE) MT SCH ×2 (13:27→20:12)
[2020-09-08 13:39] LABS: ALT/SGPT 14 U/L (12-78); BILIRUBIN,TOTAL 0.4 MG/DL (0.2-1.0); BLOOD UREA NITROGEN 27 MG/DL (7-18); CALCIUM LEVEL 7.9 MG/DL (8.5-10.1); CARBON DIOXIDE LEVEL 26 MEQ/L (21-32); CHLORIDE LEVEL 108 MEQ/L (98-107); CHOLESTEROL LEVEL 149 MG/DL (< 200); CPK CREATINE PHOSPHOKINASE 290 U/L (39-308); CREATININE FOR GFR 1.26 MG/DL (0.70-1.30); GLOMERULAR FILTRATION RATE > 60.0 (>56); GLUCOSE, FASTING 96 MG/DL (70-100); LDH LACTATE DEHYDROGENASE 180 U/L (87-241); PHOSPHORUS LEVEL 4.3 MG/DL (2.5-4.9); POTASSIUM SERUM 5.1 MEQ/L (3.5-5.1); SODIUM LEVEL 139 MEQ/L (136-145); TRIGLYCERIDES LEVEL 102 MG/DL (<150)
[2020-09-08] MEDS: MIDAZOLAM INJ 2MG/2ML VIAL (J2250 PER 1MG) IV PRN ×5 (13:45→22:05)
[2020-09-08] MEDS ORDERED: MULTIVITAMIN -ADULT INJECTION 10 ML, THIAMINE INJection 100 MG, FOLIC ACID 1 MG in NS 1... IV ONE (15:00)
[2020-09-08] MEDS: propofoL 1,000 MG in IV 1 EA IV SCH ×3 (16:01→23:16)
--- NOTE | 2020-09-08 16:40 | CCN ---
CRITICAL CARE NOTE DATE: 09/08/2020 Critical care time was 55 minutes. This excludes all procedures. Mr. Stapleton presented with an abdominal wall hematoma at [facility] yesterday. He has known polysubstance abuse. This was being managed with cautious monitoring after surgical consultation. Patient developed agitation to the point where he required significant sedation to the point where he became unable to protect his airway. He was intubated. He was then sent to our hospital for continued management of his metabolic encephalopathy, drug toxicity, and abdominal hematoma. On arrival his blood pressure is 104/55 on propofol. He is sedated with pinpoint pupils. He is not able to provide any history. The history that I have obtained is through the history and physicals that were performed at [facility]. Apparently he was pulling weeds in his garden, and he states he strained his abdomen. He did have a drop in his hemoglobin and hematocrit but had not required blood transfusions as far as I can see documented. He also had a CT of his head when he first came in, because there was concern about potential injury. A noncontrast head CT was unremarkable. HOME MEDICATIONS: Inhaled steroids, antipsychotics with quetiapine, diltiazem. His toxicology screen was positive for marijuana, methamphetamines, and opiates, but apparently he was fairly conversant on admission. PAST MEDICAL HISTORY: Most remarkable for: 1. Morbid obesity. 2. Alcoholism, reportedly in remission. 3. Long-term cannabis use. 4. Reported chronic obstructive lung disease, although I do not have pulmonary function testing available for my review. 5. History of cirrhosis of the liver without ascites. 6. History of self-harm, self-cutting habits. 7. Lumbar stenosis. 8. History of suicide attempt. 9. Psoriasis. 10. 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 PHYSICAL EXAMINATION: Temperature is 97.8, pulse is 89 in a sinus rhythm, blood pressure 104/61, weight is 142.7 kg. Oxygen saturation is 97% on 0.40 FiO2. Respiratory rate of 26. Endotracheal tube is an 8.0 endotracheal tube, currently at 28 cm at the lower lip. GENERAL: Sedated. Pinpoint pupils. Mucous membranes are moist. Currently not moving but does cough with suctioning. Neck is supple. No tracheal deviation or mass. LYMPHATIC: No cervical, supraclavicular, or axillary adenopathy. CARDIAC: Regular S1, S2 without audible murmur, rub, or gallop. No elevated jugular venous pressure (JVP). No peripheral edema. PULMONARY: Clear to auscultation without rales, rhonchi, or wheezes. No dullness to percussion. No accessory muscle use. ABDOMEN: There is a hematoma in the left flank, almost in finger-like radha. Does not appear expanded based on the line that was drawn. Abdomen itself is soft, benign, without evidence of mass or hernia. There are no active bowel sounds. EXTREMITIES: No cyanosis, clubbing, or edema. SKIN: Pale without rash, jaundice, or bruising. NEUROLOGIC: Currently no significant movement. No evidence of seizure activity. Pupils are pinpoint but reactive. MUSCULOSKELETAL: Well developed for stated age. LABORATORY EVALUATION: From September 07, PT was 10, INR was 0.9. Ammonia was 32. Valproic acid level was low at 21. White count was elevated at 17.5. This was felt to be secondary to the hematoma. Was not treated with antibiotics. On the second day, white blood cell count went down to 12.2. Hemoglobin at 11.7 initially on September 08, this morning down to 8.5. Sodium is 142, this morning was 143, potassium 5.5, chloride 113, bicarbonate 28, BUN 28, creatinine 1.2. Blood cultures so far times two have no growth, but this is a preliminary report. Initial AST and ALT were 21 and 16, respectively. Troponins were unremarkable. Initial lactate was 2.6. Repeat was 0.9 from September 07. Toxicology screen positive as mentioned above. There is significant proteinuria. Alcohol level was less than 3. 1. Respiratory failure from metabolic encephalopathy, possible delirium due to possible polysubstance abuse. Will continue to monitor for time for extubation. 2. Polysubstance abuse. Will require counseling. 3. Abdominal hematoma. Will recheck hemoglobin and hematocrit now to assure there is no need for blood transfusion. The majority of the time these are managed with blood transfusion alone, as they tend to self-tamponade. If there is any signs or symptoms of extreme hemorrhage, will consider CT angiogram to look for a bleed. 4. Deep venous thrombosis (DVT) prophylaxis, on thromboembolic deterrents (TEDs) and Kendalls, avoiding heparin due to abdominal hematoma. 4. Gastrointestinal (GI) prophylaxis, on Protonix. 5. Nutrition. I provided the gentleman with a banana bag and started tube feeds. 6. Renal insufficiency. Will continue to monitor urine output. 7. Mild hyperkalemia, possibly secondary to resorption of hematoma. Will continue to monitor this for need for treatment of hyperkalemia. Critical care time as above. This excludes all procedures.
[2020-09-08 17:28] LABS: HEMATOCRIT 25.9 % (42.0-52.0); HEMOGLOBIN 8.2 g/dl (13.5-17.5)
[2020-09-08] MEDS: MORPHINE 2 MG/ML 1ML VIAL (J2270) IV PRN (19:40)
[2020-09-09] VITALS (40 sets, daily range): BP systolic 101–154; BP diastolic 60–90
[2020-09-09] MEDS: MORPHINE 2 MG/ML 1ML VIAL (J2270) IV PRN (00:18)
[2020-09-09] MEDS: MIDAZOLAM INJ 2MG/2ML VIAL (J2250 PER 1MG) IV PRN ×5 (00:20→05:12)
[2020-09-09] MEDS: propofoL 1,000 MG in IV 1 EA IV SCH ×3 (01:40→06:11)
[2020-09-09 04:32] LABS: HEMATOCRIT 24.7 % (42.0-52.0); HEMOGLOBIN 8.1 g/dl (13.5-17.5); MEAN CORPUSCULAR HEMOGLOBIN 31.3 pg (27.0-33.0); MEAN CORPUSCULAR HGB CONC 32.8 g/dl (32.0-36.5); MEAN CORPUSCULAR VOLUME 95.4 fl (80.0-96.0); PLATELET COUNT, AUTOMATED 216 10^3/uL (150-450); RED BLOOD COUNT 2.59 10^6/uL (4.30-6.10); WHITE BLOOD COUNT 9.3 10^3/uL (4.0-10.0)
[2020-09-09 05:04] LABS: ALBUMIN 2.5 GM/DL (3.2-5.2); BLOOD UREA NITROGEN 18 MG/DL (7-18); CALCIUM LEVEL 7.3 MG/DL (8.5-10.1); CARBON DIOXIDE LEVEL 25 MEQ/L (21-32); CHLORIDE LEVEL 110 MEQ/L (98-107); CREATININE FOR GFR 0.88 MG/DL (0.70-1.30); GLOMERULAR FILTRATION RATE > 60.0 (>56); GLUCOSE, FASTING 116 MG/DL (70-100); MAGNESIUM LEVEL 2.6 MG/DL (1.8-2.4); PHOSPHORUS LEVEL 3.6 MG/DL (2.5-4.9); POTASSIUM SERUM 4.5 MEQ/L (3.5-5.1); SODIUM LEVEL 140 MEQ/L (136-145)
[2020-09-09 05:54] LABS: ABG BASE EXCESS -0.6 (-2.0-2.0); ABG HCO3 24.2 MEQ/L (22.0-26.0); ABG O2 SATURATION 97.7 % (95.0-99.0); ABG PARTIAL PRESSURE CO2 40.3 mmHg (35.0-45.0); ABG PARTIAL PRESSURE O2 110.7 mmHg (75.0-100.0); ABG TOTAL CO2 25.4 MEQ/L (22.0-29.0); ABG pH (ARTERIAL) 7.396 UNITS (7.350-7.450)
[2020-09-09] MEDS: IPRATROPIUM 0.5MG/ALBUTEROL 2.5MG INH SOL UD 3ML (DUONEB) NEB SCH ×4 (07:13→19:26)
--- NOTE | 2020-09-09 08:02 | REP ---
INDICATION: RESPIRATORY FAILURE COMPARISON: 09/08/2020 TECHNIQUE: Portable AP view of the chest FINDINGS: Evaluation is limited by portable technique, underpenetration, poor inspiratory effort and subtle rotation. The endotracheal tube is poorly evaluated but appears to be approximately 1.9 cm from the nilsa. The nasogastric tube courses below the left hemidiaphragm. Basilar atelectasis (right greater than left) is suggested and small left effusion cannot be excluded. IMPRESSION: 1. Lines and tubes as described above. 2. Mild basilar atelectasis and possible small left effusion. <Electronically signed by Librado Morillo > 09/09/20 0759
[2020-09-09] MEDS: PANTOPRAZOLE 40MG VIAL (C9113 PER 1) IV SCH (08:53)
[2020-09-09] MEDS: CHLORHEXIDINE GLUCONATE 0.12 % 15ML UDC (PERIDEX ORAL RINSE) MT SCH (08:54)
[2020-09-09] MEDS: GABAPENTIN 400MG CAP PO SCH ×2 (09:00→15:56)
[2020-09-09] MEDS ORDERED: HALOPERIDOL 5MG/ML VIAL (J1630 PER 1) IV PRN (09:25)
[2020-09-09] MEDS ORDERED: ALBUTEROL 90 MCG/ACT 8GM HFA INHALER INH PRN (09:25)
--- NOTE | 2020-09-09 09:52 | CCN ---
CRITICAL CARE NOTE DATE: 09/09/2020 CRITICAL CARE TIME: 46 minutes; this excludes all procedures. SUBJECTIVE: Mr. Stapleton had no cardiac events overnight. This morning, he did follow some commands. Will place on spontaneous breathing trial as soon has his tube feeds have been off for an hour. He was transferred yesterday due to metabolic encephalopathy and possible polysubstance abuse. His H&H has remained unchanged. No evidence of ongoing bleeding. OBJECTIVE: VITAL SIGNS: Temperature 97.6, pulse 95 sinus tachycardia, respiratory rate 25, blood pressure 103/68 with a mean arterial pressure (MAP) of 80. Oxygen saturation is 95% on 0.35 FiO2. GENERAL: Sedated on mechanical ventilation. HEENT: Sclerae clear, anicteric. Pupils equal and reactive to light approximately now 3 mm. Less pinpoint than yesterday. NECK: Supple, large circumference. No tracheal deviation or deviation. LYMPHATICS: No cervical, supraclavicular, or axillary adenopathy. CARDIAC: Decreased heart sounds throughout without audible murmur, rub, or gallop. PMI is difficult to palpate. PULMONARY: Decreased breath sounds without rales, rhonchi, or wheezes. No dullness to percussion. ABDOMEN: Hypoactive bowel sounds without mass or hernia. Hematoma on the left side without evidence of change in size. Minimal purple discoloration over the left flank. EXTREMITIES: No cyanosis, clubbing, or edema. SKIN: No rash, jaundice, or bruising other than the hematoma as described. LABORATORY EVALUATION: Shows sodium 140, potassium 4.5, chloride 110, bicarb of 25, BUN of 18, creatinine of 0.88 with a calcium of 7.3, magnesium of 2.6, and albumin of 2.5. Hemoglobin shows a white blood cell count of 9.3, hemoglobin 8.1, and platelet count of 216,00. Blood gas this morning shows a pH of 7.40, pCO2 of 40, and PaO2 of 111 on 0.35 FiO2 on volume control. IMAGING DATA: Chest x-ray shows endotracheal tube is too deep. There is cardiomegaly and blunting of the left costophrenic angle without significant new infiltrate. IMPRESSION: 1. Respiratory failure secondary to metabolic encephalopathy and inability to protect his airway and likely polysubstance abuse. Will wait for readiness for trial of extubation this morning. 2. Hematoma left flank. Appears to be stable. No evidence of ongoing bleeding. He has not required any blood transfusions, although his hemoglobin is borderline. Will continue to monitor in the intensive care unit (ICU). If there are any signs of acute bleeding, would consider CT angiogram of the abdomen. Prior films from [facility] have been loaded into the PACs system. 3. Morbid obesity. 4. Gastrointestinal (GI) prophylaxis with Protonix. 5. Deep vein thrombosis (DVT) prophylaxis with heparin being held due to the hematoma. Patient on TEDs and Kendalls. Has a high risk of developing thromboembolic disease because of his obesity and critical illness. 6. Polysubstance abuse with mood disorder. Will ensure that his antipsychotics are initiated once he becomes extubated to help with management of his symptoms. RON
[2020-09-09] MEDS: QUEtiapine FUMARATE 200 MG TAB PO SCH (13:45)
[2020-09-09] MEDS: busPIRone 10 MG TAB PO SCH ×3 (13:45→21:00)
[2020-09-09] MEDS ORDERED: PERCOCET 5MG/325MG TAB PO PRN (14:55)
[2020-09-09] MEDS: LORazepam 2 MG TAB PO PRN ×2 (17:00→20:41)
--- NOTE | 2020-09-09 17:29 | IPNPDOC ---
Text Note Date of Service The patient was seen on 09/09/20. NOTE Patient was signed out to me in the morning after extubation. When I saw patient he was lethargic, subsequently he became agitated and did not follow commands. He developed tachycardia with heart rate of 120. Objective: GENERAL APPEARANCE: Somnolent male HEENT: no scleral icterus, no JVD, EOMI CARDIOVASCULAR: S1S2, tachycardia rate 120-125 LUNGS: Diminished lung sounds bilaterally ABDOMEN: soft & not tender w palpitation MUSCULOSKELETAL: no cyanosis, no swelling INTEGUMENT: no generalized pallor NEUROLOGICAL: does not follows commands, speech not dysarthric Assessment and plan Patient is 54 years old male with past history of present since abuse, EtOH, COPD, cirrhosis, history of suicidal attempts was transferred with acute respiratory failure from metabolic encephalopathy and abdominal hematoma from another facility to [facility], due to agitation patient was intubated and successfully extubated in the morning of 09/09/20. Metabolic encephalopathy From September 07, PT was 10, INR was 0.9. Ammonia was 32. Valproic acid level was low at 21 Most likely secondary to polysubstance abuse, possible EtOH withdrawal or medication side effect. 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 Abdominal hematoma No any indication for surgical intervention for now Hemoglobin been stable around 8 We will continue H&H every 6 hours Morbid obesity BMI 38.1 Complicated care History of cirrhosis LFT within normal limit Continue to monitor psychogenic non-epileptic seizure Continue Depakote VS,Fishbone, I+O VS, Fishbone, I+O Laboratory Tests 09/09/20 04:27 Vital Signs Date Time Temp Pulse Resp B/P (MAP) Pulse Ox O2 Delivery O2 Flow Rate FiO2 09/09/20 16:53 21 09/09/20 15:59 99.6 116 144/81 (102) 93 Room Air 09/09/20 12:00 4.0 09/09/20 10:00 40 I&O- Last 24 Hours up to 6 AM 09/09/20 06:00 Intake Total 1691 ml Output Total 865 ml Balance 826 ml RENAY FRIAS DO Sep 09, 2020 17:29
[2020-09-09 17:48] LABS: HEMATOCRIT 25.7 % (42.0-52.0); HEMOGLOBIN 8.2 g/dl (13.5-17.5)
[2020-09-09] MEDS ORDERED: LORazepam 2 MG/ML VIAL IV STA (17:49)
[2020-09-09] MEDS ORDERED: LORazepam 2 MG/ML VIAL As Ordered ONE (17:59)
[2020-09-09] MEDS: NS 1,000 ML IV SCH (18:39)
[2020-09-09] MEDS ORDERED: LORazepam 2 MG TAB PO SCH (20:00)
[2020-09-09] MEDS: ADVAIR HFA 230/21MCG INHALER INH SCH (20:00)
[2020-09-09] MEDS: DIVALPROEX 500MG *ER* TAB PO SCH (21:00)
[2020-09-09] MEDS: THIAMINE 100 MG TAB PO SCH (21:00)
[2020-09-09] MEDS ORDERED: LORazepam 2 MG/ML VIAL IV PRN (21:05)
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
[2020-09-09 23:12] LABS: HEMATOCRIT 24.9 % (42.0-52.0); HEMOGLOBIN 8.1 g/dl (13.5-17.5)
[2020-09-10] VITALS (16 sets, daily range): BP systolic 115–158; BP diastolic 51–78
[2020-09-10] MEDS: NS 1,000 ML IV SCH (04:11)
[2020-09-10 04:41] LABS: HEMATOCRIT 25.4 % (42.0-52.0); HEMATOCRIT 27.1 % (42.0-52.0); HEMOGLOBIN 7.9 g/dl (13.5-17.5); HEMOGLOBIN 8.3 g/dl (13.5-17.5); MEAN CORPUSCULAR HEMOGLOBIN 30.5 pg (27.0-33.0); MEAN CORPUSCULAR HGB CONC 30.6 g/dl (32.0-36.5); MEAN CORPUSCULAR VOLUME 99.6 fl (80.0-96.0); PLATELET COUNT, AUTOMATED 245 10^3/uL (150-450); RED BLOOD COUNT 2.72 10^6/uL (4.30-6.10); WHITE BLOOD COUNT 11.2 10^3/uL (4.0-10.0)
[2020-09-10 05:23] LABS: ALBUMIN 2.7 GM/DL (3.2-5.2); BLOOD UREA NITROGEN 14 MG/DL (7-18); CALCIUM LEVEL 7.8 MG/DL (8.5-10.1); CARBON DIOXIDE LEVEL 23 MEQ/L (21-32); CHLORIDE LEVEL 111 MEQ/L (98-107); GLOMERULAR FILTRATION RATE > 60.0 (>56); GLUCOSE, FASTING 85 MG/DL (70-100); MAGNESIUM LEVEL 2.4 MG/DL (1.8-2.4); PHOSPHORUS LEVEL 3.6 MG/DL (2.5-4.9); POTASSIUM SERUM 4.8 MEQ/L (3.5-5.1); SODIUM LEVEL 142 MEQ/L (136-145)
[2020-09-10] MEDS ORDERED: LORazepam 2 MG/ML VIAL IV PRN (07:25)
[2020-09-10] MEDS: ADVAIR HFA 230/21MCG INHALER INH SCH ×2 (07:27→19:38)
[2020-09-10] MEDS: IPRATROPIUM 0.5MG/ALBUTEROL 2.5MG INH SOL UD 3ML (DUONEB) NEB SCH ×4 (07:27→19:37)
[2020-09-10] MEDS ORDERED: ISOVUE-370 76% 100ML VIAL As Ordered ONE (09:25)
--- NOTE | 2020-09-10 10:08 | REP ---
INDICATION: abdominal bleed COMPARISON: None TECHNIQUE: Axial noncontrast images from the lung bases to the pubic symphysis with coronal and sagittal reformations. This CT examination was performed using the following dose reduction techniques: Automated exposure control, adjustment of mA and/or kv according to the patient's size, and use of iterative reconstruction technique. FINDINGS: There is an intramuscular hematoma measuring approximately 20 x 8 cm in AP and transverse diameter and approximately 18 cm in craniocaudal length along the left flank with surrounding subcutaneous edematous infiltration. There is no obvious active hemorrhage. Liver, spleen, pancreas, gallbladder, bilateral adrenal glands and kidneys are normal. The enteric system is without obstruction or acute inflammatory process. Sigmoid diverticula noted without acute diverticulitis. Pelvis demonstrates Gamble catheter in collapsed bladder. Prostate gland is unremarkable. Small fat containing inguinal hernias noted. No ascites. No free air. No adenopathy. Abdominal aorta and vasculature demonstrate atherosclerotic changes without aneurysm or dissection. Osseous structures demonstrate degenerative changes including chronic bilateral L5 spondylolysis with grade 1 spondylolisthesis. IMPRESSION: 1. Large intramuscular hematoma along the left flank. No active hemorrhage identified. 2. Bibasilar atelectasis. 3. Nonacute findings as above. <Electronically signed by Librado Morillo > 09/10/20 [id number]
[2020-09-10] MEDS: MULTIVITAMINS/MINERALS THERAP 1 TAB PO SCH (10:14)
[2020-09-10] MEDS: PANTOPRAZOLE 40MG VIAL (C9113 PER 1) IV SCH (10:14)
[2020-09-10] MEDS: FOLIC ACID 1 MG TAB PO SCH (10:14)
[2020-09-10] MEDS: THIAMINE 100 MG TAB PO SCH ×2 (10:14→21:19)
[2020-09-10] MEDS: busPIRone 10 MG TAB PO SCH ×3 (10:14→21:20)
[2020-09-10 10:58] LABS: HEMATOCRIT 26.7 % (42.0-52.0); HEMOGLOBIN 8.4 g/dl (13.5-17.5)
--- NOTE | 2020-09-10 11:45 | IPNPDOC ---
Text Note Date of Service The patient was seen on 09/10/20. NOTE Subjective: Overnight patient was agitated, received Ativan and Haldol. When I saw patient was complaining on left flank pain. CIWA score 3 in the morning Objective: GENERAL APPEARANCE: Somnolent male HEENT: no scleral icterus, no JVD, EOMI CARDIOVASCULAR: S1S2, tachycardia rate 110 LUNGS: Diminished lung sounds bilaterally ABDOMEN: soft & not tender w palpitation MUSCULOSKELETAL: no cyanosis, no swelling INTEGUMENT: no generalized pallor, large left flank discoloration secondary to hematoma NEUROLOGICAL: Cranial nerves II through XII intact, follows commands Assessment and plan Patient is 54 years old male with past history of present since abuse, EtOH, COPD, cirrhosis, history of suicidal attempts was transferred with acute respiratory failure from metabolic encephalopathy and abdominal hematoma from another facility to [facility], due to agitation patient was intubated and successfully extubated in the morning of 09/09/20. Metabolic encephalopathy/alcohol withdrawal From September 07, PT was 10, INR was 0.9. Ammonia was 32. Valproic acid level was low at 21 Most likely secondary to polysubstance abuse, possible EtOH withdrawal or medication side effect. Gabapentin on hold CIWA Slightly improved today acute hypoxemic respiratory failure/COPD Resolved. 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 No active hemorrhage identified.2. Bibasilar atelectasis Morbid obesity BMI 38.6 Complicated care History of cirrhosis LFT within normal limit Continue to monitor psychogenic non-epileptic seizure Continue Depakote VS,Fishbone, I+O VS, Fishbone, I+O Laboratory Tests 09/09/20 17:10 09/09/20 22:40 09/10/20 04:27 09/10/20 10:23 Vital Signs Date Time Temp Pulse Resp B/P (MAP) Pulse Ox O2 Delivery O2 Flow Rate FiO2 09/10/20 11:24 88 24 09/10/20 10:18 146/72 09/10/20 08:00 2.0 09/10/20 08:00 99.2 97 Nasal Cannula 09/09/20 10:00 40 I&O- Last 24 Hours up to 6 AM 09/10/20 06:00 Intake Total 1215.2 ml Output Total 1860 ml Balance -644.8 ml RENAY FRIAS Sep 10, 2020 11:45
[2020-09-10] MEDS ORDERED: ONDANSETRON 4MG/2ML VIAL IV PRN (12:00)
[2020-09-10 17:10] LABS: HEMATOCRIT 28.9 % (42.0-52.0); HEMOGLOBIN 8.8 g/dl (13.5-17.5)
[2020-09-10] MEDS: QUEtiapine FUMARATE 200 MG TAB PO SCH ×3 (21:00→21:58)
[2020-09-10] MEDS: DIVALPROEX 500MG *ER* TAB PO SCH (21:18)
--- NOTE | 2020-09-10 22:49 | REPVR ---
PROCEDURE INFORMATION: "STROKE PROTOCOL" Exam: CT Head without Contrast Exam date and time: 09/10/20 (10:22pm) Age: 54 years old Clinical indication: Possible CVA TECHNIQUE: Imaging protocol: Computed tomography of the head without contrast. Radiation optimization: All CT scans at this facility use at least one of these dose optimization techniques: automated exposure control; mA and/or kV adjustment per patient size (includes targeted exams where dose is matched to clinical indication); or iterative reconstruction. Other technique: STROKE PROTOCOL was implemented. COMPARISON: CT HEAD of 09/07/20 FINDINGS: Brain: Moderate atrophic changes again seen. No acute hemorrhage. No mass effect. 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 Cerebral ventricles: No ventriculomegaly. Paranasal sinuses: Visualized sinuses are unremarkable. No air-fluid levels. Mastoid air cells: Visualized mastoid air cells are well aerated. Bones/joints: Unremarkable. No acute fracture. Soft tissues: Unremarkable. IMPRESSION: No acute intracranial pathology is appreciated. ASSESSMENT: ASPECTS ([place] Stroke Program Early CT Score) is 10. Electronically signed by: Viktoria Seay On 09/10/2020 22:48:58 PM
[2020-09-11] VITALS (10 sets, daily range): BP systolic 106–140; BP diastolic 55–88
[2020-09-11 00:20] LABS: HEMATOCRIT 23.7 % (42.0-52.0); HEMOGLOBIN 7.8 g/dl (13.5-17.5)
--- NOTE | 2020-09-11 00:37 | REPVR ---
PROCEDURE INFORMATION: Exam: MR Head Without Contrast Exam date and time: 09/10/2020 11:16 PM Age: 54 years old Clinical indication: Other: Respiratory failuer, R/O CVA TECHNIQUE: Imaging protocol: MR of the head without contrast. COMPARISON: 1. CT Head without contrast 2020-09-10 22:[address] HEAD W/O CONTRAST - OUTSIDE PRIOR 2020-09-07 14:49 FINDINGS: Study is essentially nondiagnostic, only a sagittal T1 sequence was performed. Severe motion artifact. Study terminated prematurely. IMPRESSION: Nondiagnostic. Electronically signed by: Tacho Hopson On 09/11/2020 00:37:21 AM
--- NOTE | 2020-09-11 01:09 | ECGEPIP ---
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
[2020-09-11 04:48] LABS: HEMATOCRIT 24.8 % (42.0-52.0); HEMOGLOBIN 8.1 g/dl (13.5-17.5); MEAN CORPUSCULAR HEMOGLOBIN 30.5 pg (27.0-33.0); MEAN CORPUSCULAR HGB CONC 32.7 g/dl (32.0-36.5); MEAN CORPUSCULAR VOLUME 93.2 fl (80.0-96.0); PLATELET COUNT, AUTOMATED 289 10^3/uL (150-450); RED BLOOD COUNT 2.66 10^6/uL (4.30-6.10); WHITE BLOOD COUNT 9.9 10^3/uL (4.0-10.0)
[2020-09-11 05:10] LABS: ALBUMIN 2.6 GM/DL (3.2-5.2); BLOOD UREA NITROGEN 15 MG/DL (7-18); CARBON DIOXIDE LEVEL 27 MEQ/L (21-32); CHLORIDE LEVEL 109 MEQ/L (98-107); CREATININE FOR GFR 0.78 MG/DL (0.70-1.30); GLOMERULAR FILTRATION RATE > 60.0 (>56); GLUCOSE, FASTING 97 MG/DL (70-100); MAGNESIUM LEVEL 2.3 MG/DL (1.8-2.4); PHOSPHORUS LEVEL 3.7 MG/DL (2.5-4.9); POTASSIUM SERUM 4.2 MEQ/L (3.5-5.1); SODIUM LEVEL 142 MEQ/L (136-145)
[2020-09-11] MEDS: ADVAIR HFA 230/21MCG INHALER INH SCH ×2 (07:19→19:54)
[2020-09-11] MEDS: IPRATROPIUM 0.5MG/ALBUTEROL 2.5MG INH SOL UD 3ML (DUONEB) NEB SCH ×4 (07:19→19:54)
[2020-09-11] MEDS: PANTOPRAZOLE 40MG VIAL (C9113 PER 1) IV SCH (09:17)
[2020-09-11] MEDS: MULTIVITAMINS/MINERALS THERAP 1 TAB PO SCH (09:17)
[2020-09-11] MEDS: FOLIC ACID 1 MG TAB PO SCH (09:17)
[2020-09-11] MEDS: THIAMINE 100 MG TAB PO SCH ×2 (09:17→20:25)
[2020-09-11] MEDS: busPIRone 10 MG TAB PO SCH ×3 (09:18→20:25)
--- NOTE | 2020-09-11 10:56 | IPNPDOC ---
Text Note Date of Service The patient was seen on 09/11/20. NOTE Subjective: Overnight patient was agitated. CIWA score 6 in the morning Objective: GENERAL APPEARANCE: NAD HEENT: no scleral icterus, no JVD, EOMI CARDIOVASCULAR: S1S2, tachycardia rate 110 LUNGS: Diminished lung sounds bilaterally ABDOMEN: soft & not tender w palpitation MUSCULOSKELETAL: no cyanosis, no swelling INTEGUMENT: no generalized pallor, large left flank discoloration secondary to hematoma NEUROLOGICAL: Cranial nerves II through XII intact, follows commands Assessment and plan Patient is 54 years old male with past history of present since abuse, EtOH, [employer] D, cirrhosis, history of suicidal attempts was transferred with acute respiratory failure from metabolic encephalopathy and abdominal hematoma from another facility to [facility], due to agitation patient was intubated and successfully extubated in the morning of 09/09/20. Metabolic encephalopathy/alcohol withdrawal From September 07, PT was 10, INR was 0.9. Ammonia was 32. Valproic acid level was low at 21 Most likely secondary to polysubstance abuse, possible EtOH withdrawal or medication side effect. Gabapentin on hold Continue CIWA Resolved in the morning acute hypoxemic respiratory failure/COPD Resolved. 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 No active hemorrhage identified.2. Bibasilar atelectasis Morbid obesity BMI 38.6 Complicated care History of cirrhosis LFT within normal limit Continue to monitor psychogenic non-epileptic seizure Continue Depakote VS,Fishbone, I+O VS, Fishbone, I+O Laboratory Tests 09/10/20 16:42 09/11/20 00:00 09/11/20 04:19 Vital Signs Date Time Temp Pulse Resp B/P (MAP) Pulse Ox O2 Delivery O2 Flow Rate FiO2 09/11/20 09:17 102 140/81 09/11/20 08:00 97.6 18 91 Room Air 09/11/20 04:00 2.0 09/09/20 10:00 40 I&O- Last 24 Hours up to 6 AM 09/11/20 06:00 Intake Total 1380 ml Output Total 2290 ml Balance -910 ml RENAY FRIAS DO Sep 11, 2020 10:56
[2020-09-11 11:06] LABS: HEMATOCRIT 26.5 % (42.0-52.0); HEMOGLOBIN 8.6 g/dl (13.5-17.5)
[2020-09-11] MEDS ORDERED: MIRALAX *UNIT DOSE* 17GM PACKET PO PRN (16:55)
[2020-09-11] MEDS: QUEtiapine FUMARATE 200 MG TAB PO SCH (20:24)
[2020-09-11] MEDS: DIVALPROEX 500MG *ER* TAB PO SCH (20:24)
[2020-09-12] VITALS: BP 139/68
[2020-09-12 04:08] VITALS: BP 130/63
[2020-09-12 06:53] LABS: HEMOGLOBIN 8.4 g/dl (13.5-17.5); MEAN CORPUSCULAR HEMOGLOBIN 30.5 pg (27.0-33.0); MEAN CORPUSCULAR HGB CONC 32.3 g/dl (32.0-36.5); MEAN CORPUSCULAR VOLUME 94.5 fl (80.0-96.0); PLATELET COUNT, AUTOMATED 308 10^3/uL (150-450); RED BLOOD COUNT 2.75 10^6/uL (4.30-6.10); WHITE BLOOD COUNT 10.1 10^3/uL (4.0-10.0)
[2020-09-12 07:16] LABS: ALBUMIN 2.6 GM/DL (3.2-5.2); BLOOD UREA NITROGEN 14 MG/DL (7-18); CALCIUM LEVEL 8.4 MG/DL (8.5-10.1); CARBON DIOXIDE LEVEL 29 MEQ/L (21-32); CHLORIDE LEVEL 108 MEQ/L (98-107); CREATININE FOR GFR 0.92 MG/DL (0.70-1.30); GLOMERULAR FILTRATION RATE > 60.0 (>56); GLUCOSE, FASTING 113 MG/DL (70-100); MAGNESIUM LEVEL 2.2 MG/DL (1.8-2.4); PHOSPHORUS LEVEL 4.2 MG/DL (2.5-4.9); POTASSIUM SERUM 4.2 MEQ/L (3.5-5.1); SODIUM LEVEL 142 MEQ/L (136-145)
--- NOTE | 2020-09-12 07:52 | REP ---
INDICATION: RESPIRATORY FAILURE COMPARISON: 09/09/2020 TECHNIQUE: Portable AP view of the chest FINDINGS: The mediastinum and cardiac silhouette within normal limits and stable. The lung potts demonstrate chronic changes including bullae at the left lower lung zone. Mild left basilar atelectasis cannot be excluded. No obvious effusion or pneumothorax. Skeletal structures are intact. IMPRESSION: Cannot exclude trace left basilar atelectasis. <Electronically signed by Librado Morillo > 09/12/20 0721
[2020-09-12] MEDS: ADVAIR HFA 230/21MCG INHALER INH SCH (07:56)
[2020-09-12] MEDS: IPRATROPIUM 0.5MG/ALBUTEROL 2.5MG INH SOL UD 3ML (DUONEB) NEB SCH ×2 (07:56→10:54)
[2020-09-12 08:00] VITALS: BP_SYST 123; BP_SYST 133; BP_DIAS 71; BP_DIAS 74
[2020-09-12 08:02] LABS: IRON (FE) 34 UG/DL (65-175); PERCENT SATURATION 12.1 % (19.7-50.0); TOTAL IRON BINDING CAPACITY 280 UG/DL (250-450)
[2020-09-12] MEDS: MULTIVITAMINS/MINERALS THERAP 1 TAB PO SCH (09:25)
[2020-09-12] MEDS: FOLIC ACID 1 MG TAB PO SCH (09:25)
[2020-09-12 09:26] VITALS: BP 133/74
[2020-09-12] MEDS: GABAPENTIN 400MG CAP PO SCH (09:26)
[2020-09-12] MEDS: busPIRone 10 MG TAB PO SCH (09:26)
[2020-09-12] MEDS: PANTOPRAZOLE 40MG VIAL (C9113 PER 1) IV SCH (09:26)
[2020-09-12] MEDS: THIAMINE 100 MG TAB PO SCH (09:26)
[2020-09-12] MEDS ORDERED: IRON325T2 PO (10:08)
[2020-09-12 12:00] VITALS: BP 132/69
--- NOTE | 2020-09-12 15:51 | DS.PDOC ---
Discharge Summary General Date of Admission Sep 08, 2020 at 11:47 Date of Discharge 09/12/20 Discharge Summary PROCEDURES PERFORMED DURING STAY: [None]. ADMITTING DIAGNOSES: Metabolic encephalopathy/alcohol withdrawal Polysubstance abuse Abdominal hematoma Morbid obesity psychogenic non-epileptic seizure History of cirrhosis acute hypoxemic respiratory failure/COPD DISCHARGE DIAGNOSES: Metabolic encephalopathy/alcohol withdrawal Polysubstance abuse Abdominal hematoma Morbid obesity psychogenic non-epileptic seizure History of cirrhosis acute hypoxemic respiratory failure/COPD COMPLICATIONS/CHIEF COMPLAINT: Respiratory Failure, Poly Substance Abuse. HISTORY OF PRESENT ILLNESS:Patient is 54 years old male with past history of present since abuse, EtOH, COPD, cirrhosis, history of suicidal attempts was transferred with acute respiratory failure from metabolic encephalopathy and abdominal hematoma from another facility to [facility], due to agitation patient was intubated and successfully extubated in the morning of 09/09. HOSPITAL COURSE: During the hospital stay the following issues addressed Metabolic encephalopathy/alcohol withdrawal From September 07, PT was 10, INR was 0.9. Ammonia was 32. Valproic acid level was low at 21 Most likely secondary to polysubstance abuse, possible EtOH withdrawal or medication side effect. Gabapentin on hold Received treatment with CIWA Resolved acute hypoxemic respiratory failure/COPD Resolved. Patient was extubated on 09/09/20 Received inhalers Incentive spirometry Abdominal hematoma No any indication for surgical intervention for now Hemoglobin stable Due to ongoing flank pain and increased size of discoloration CT of abdomen and pelvis was ordered on 09/10/20, patient was found to have Large intramuscular hematoma along the left flank. No active hemorrhage identified.2. Bibasilar atelectasis Morbid obesity BMI 38.6 Complicated care History of cirrhosis LFT within normal limit Continue to monitor psychogenic non-epileptic seizure Continue Depakote DISCHARGE MEDICATIONS: Please see below. ALLERGIES: Please see below. PHYSICAL EXAMINATION ON DISCHARGE: VITAL SIGNS: Please see below. GENERAL APPEARANCE: NAD HEENT: no scleral icterus, no JVD, EOMI CARDIOVASCULAR: S1S2, tachycardia rate 110 LUNGS: Diminished lung sounds bilaterally ABDOMEN: soft & not tender w palpitation MUSCULOSKELETAL: no cyanosis, no swelling INTEGUMENT: no generalized pallor, large left flank discoloration secondary to hematoma NEUROLOGICAL: Cranial nerves II through XII intact, follows commands LABORATORY DATA: Please see below. IMAGING: [facility] NAME: KATE JOSEPH DATE OF : 1965 AGE: 54 SEX: M REPORT #: [id number] ROOM: [facility] DOCTOR: RENAY FRIAS DO Ordered for Date&Time: 09/10/20 0845 cc: [~ rep ct ivnm] Service Date&Time: 09/10/20 0941 This report is in Signed status. If this report is in a DRAFT status it has not yet been reviewed by the radiologist for accuracy. Thank you for having your radiology procedures performed at [facility] RADIOLOGY REPORT Date&Time printed: [~ rep prt dt last] [~ rep prt tm last] Page 2 of 2 [place] [address] RADIOLOGY REPORT This report is in Signed status. If this report is in a DRAFT status it has not yet been reviewed by the radiologist for accuracy. Thank you for having your radiology procedures performed at [facility] RADIOLOGY REPORT Date&Time printed: [~ rep prt dt last] [~ rep prt tm last] Page 1 of 1 COMPARISON: None TECHNIQUE: Axial noncontrast images from the lung bases to the pubic symphysis with coronal and sagittal reformations. This CT examination was performed using the following dose reduction techniques: Automated exposure control, adjustment of mA and/or kv according to the patient's size, and use of iterative reconstruction technique. FINDINGS: There is an intramuscular hematoma measuring approximately 20 x 8 cm in AP and transverse diameter and approximately 18 cm in craniocaudal length along the left flank with surrounding subcutaneous edematous infiltration. There is no obvious active hemorrhage. Liver, spleen, pancreas, gallbladder, bilateral adrenal glands and kidneys are normal. The enteric system is without obstruction or acute inflammatory process. Sigmoid diverticula noted without acute diverticulitis. Pelvis demonstrates Gamble catheter in collapsed bladder. Prostate gland is unremarkable. Small fat containing inguinal hernias noted. No ascites. No free air. No adenopathy. Abdominal aorta and vasculature demonstrate atherosclerotic changes without aneurysm or dissection. Osseous structures demonstrate degenerative changes including chronic bilateral L5 spondylolysis with grade 1 spondylolisthesis. IMPRESSION: 1. Large intramuscular hematoma along the left flank. No active hemorrhage identified. 2. Bibasilar atelectasis. 3. Nonacute findings as above. <Electronically signed by Librado Morillo > 09/10/20 1004 DD: Librado Morillo MD 09/10/20956 DT: PATIENCE 09/10/20 100 DS: KYM 09/10/2057 09/10/20956 [~ rep ct labl] PROGNOSIS: Fair ACTIVITY: [As tolerated]. DIET: Cardiac DISPOSITION: 01 Home, Self-Care. ITEMS TO FOLLOWUP ON ON OUTPATIENT: Follow with PCP in 2-3 days DISCHARGE CONDITION: [Stable]. TIME SPENT ON DISCHARGE: 40minutes. Vital Signs/I&Os Vital Signs Date Time Temp Pulse Resp B/P (MAP) Pulse Ox O2 Delivery O2 Flow Rate FiO2 09/12/20 12:00 89 132/69 09/12/20 08:00 98.2 18 97 Room Air 09/11/20 04:00 2.0 09/09/20 10:00 40 I&O- Last 24 Hours up to 6 AM 09/12/20 06:00 Intake Total 1650 ml Output Total 1050 ml Balance 600 ml Laboratory Data Labs 24H Laboratory Tests 2 09/12/20 06:38: Nucleated Red Blood Cells % (auto) 0.0, Anion Gap 5L, Glomerular Filtration Rate > 60.0, Calcium Level 8.4L, Phosphorus Level 4.2, Magnesium Level 2.2, Iron Lev el 34L, Total Iron Binding Capacity 280, Transferrin % Saturation 12.1L, Albumin 2.6L CBC/BMP Laboratory Tests 09/12/20 06:38 Discharge Medications Scheduled Buspirone HCl (Buspirone HCl) 10 Mg Tablet, 20 MG PO TID, (Reported) Diltiazem HCl (Dilt-Xr) 120 Mg Cap, 120 MG PO DAILY, (Reported) Divalproex Sodium (Divalproex Sodium ER) 500 Mg Tab.er.24h, 1,000 MG PO QHS, (R eported) Ferrous Sulfate (Iron) 325 Mg Tablet, 1 TAB PO BID Fluticasone Propionate (Flovent Hfa) 110 Mcg/Act Aer.w.adap, 2 PUFF INH BID, (Reported) Gabapentin (Gabapentin) 400 Mg Capsule, 400 MG PO TID, (Reported) Naltrexone HCl (Naltrexone HCl) 50 Mg Tablet, 50 MG PO QHS, (Reported) Pantoprazole Sodium (Pantoprazole Sodium) 40 Mg Tab, 40 MG PO BID, (Reported) Prazosin Hcl (Prazosin HCl) 5 Mg Capsule, 5 MG PO QHS, (Reported) Quetiapine Fumarate (Quetiapine Fumarate) 400 Mg Tablet, 400 MG PO QHS, (Reported) Scheduled PRN Acetaminophen (Acetaminophen) 325 Mg Tab, 650 MG PO Q6H PRN for PAIN, (Reported) Albuterol Sulfate (Albuterol Sulfate Hfa) 8.5 Gm Hfa.aer.ad, 2 PUFFS INH QID PRN for SHORTNESS OF BREATH, (Reported) Betamethasone Radha (Betamethasone Valerate) 15 Gm Cream..g., 1 DOSE TOP BID PRN for DRY SKIN, (Reported) APPLY TO FACE Nicotine (Nicotrol) 10 Mg Inh, 1 PUFF INH PRN PRN for NICOTINE WITHDRAWAL, (Reported) Allergies Coded Allergies: Peanut (Verified Allergy, Severe, 09/10/20) bee venom protein (honey bee) (Verified Allergy, Severe, 08/07/19) hornet venom (Verified Allergy, Severe, 08/07/19) RENAY FRIAS DO Sep 12, 2020 15:51
[2020-09-13 12:05] LABS: VITAMIN B12 LEVEL 414 PG/ML (247-911)
[2020-09-13 12:06] LABS: FOLATE 9.2 NG/ML (>5.4)
== END 2020-09-12 14:26 | disposition home or self-care (01) | DRG 91 ==
LOC: M ICU 11:47 → M PCU 09-11 00:36
PROVIDERS: ADMIT Internal Medicine Pulmonary Disease; ATTEND Internal Medicine
PROC: 5A1935Z Respiratory Ventilation, Less than 24 Consecutive Hours (ICD-10-PCS; principal; 2020-09-08)
DX: G92 Toxic encephalopathy (principal); J96.01 Acute respiratory failure with hypoxia; G40.89 Other seizures; F10.132 Alcohol abuse with withdrawal with perceptual disturbance; F19.132 Other psychoactive substance abuse with withdrawal with perceptual disturbance; E87.5 Hyperkalemia; E66.01 Morbid (severe) obesity due to excess calories; F12.10 Cannabis abuse, uncomplicated; J44.9 Chronic obstructive pulmonary disease, unspecified; K74.60 Unspecified cirrhosis of liver; Z91.5 Personal history of self-harm; M48.061 Spinal stenosis, lumbar region without neurogenic claudication; L40.9 Psoriasis, unspecified; S30.1XXA Contusion of abdominal wall, initial encounter; X58.XXXA Exposure to other specified factors, initial encounter; Y93.H2 Activity, gardening and landscaping; K21.9 Gastro-esophageal reflux disease without esophagitis; F19.14 Other psychoactive substance abuse with psychoactive substance-induced mood disorder; Z68.38 Body mass index [BMI] 38.0-38.9, adult; R00.0 Tachycardia, unspecified; Z91.14 Patient's other noncompliance with medication regimen; Z79.899 Other long term (current) drug therapy; Z91.010 Allergy to peanuts; Z91.030 Bee allergy status

== ENCOUNTER → 2021-09-27 | Outpatient (CLI) | payer MEDICARE ==
[~2021-09-27] MED LIST changes: +ALBU8.5H INH; +ATIV2INJ5 IV; +BANANA BAG IV; +BETA115CR TOP; +BUPR-70 PO; -BUPR100T3 PO; +BUSP10TA PO; +CEFTINJ IV; +DIVA500T9 PO; +FLUT11IN INH; +INCR1INH INH; +IRON325T2 PO; +NALT50TA4 PO; +PRAZ5CAP PO; +PROP10IN IV; +QUET400T2 PO
== END ==
LOC: M PAIN 10:30
PROVIDERS: ATTEND Nurse Practitioner Family
DX: M51.16 Intervertebral disc disorders with radiculopathy, lumbar region (principal); G40.909 Epilepsy, unspecified, not intractable, without status epilepticus; I10 Essential (primary) hypertension; F43.10 Post-traumatic stress disorder, unspecified; G62.9 Polyneuropathy, unspecified; R91.1 Solitary pulmonary nodule; J45.909 Unspecified asthma, uncomplicated; F31.9 Bipolar disorder, unspecified; F10.20 Alcohol dependence, uncomplicated; J44.9 Chronic obstructive pulmonary disease, unspecified; F32.A Depression, unspecified; M79.661 Pain in right lower leg; M79.662 Pain in left lower leg; F17.210 Nicotine dependence, cigarettes, uncomplicated; K21.9 Gastro-esophageal reflux disease without esophagitis; Z87.81 Personal history of (healed) traumatic fracture; Z86.73 Personal history of transient ischemic attack (TIA), and cerebral infarction without residual deficits; Z79.899 Other long term (current) drug therapy; Z91.010 Allergy to peanuts; Z91.030 Bee allergy status

== ENCOUNTER 2021-09-29 11:18 | Emergency (ER) | payer MEDICARE ==
[2021-09-29] MEDS ORDERED: levETIRAcetam INJection 1,000 MG in D5W 100 ML IV ONE (11:35)
[2021-09-29] MEDS ORDERED: NS 1,000 ML IV ONE (11:35)
[2021-09-29 11:56] LABS: BASO # 0.1 10^3/uL (0.0-0.2); BASO % 1.3 % (0.0-1.0); EOS # 0.4 10^3/uL (0.0-0.5); EOS % 4.3 % (0.0-3.0); HEMATOCRIT 39.1 % (42.0-52.0); HEMOGLOBIN 12.8 g/dl (13.5-17.5); LYMPH # 2.1 10^3/uL (1.5-5.0); LYMPH % 26.1 % (24.0-44.0); MEAN CORPUSCULAR HEMOGLOBIN 30.1 pg (27.0-33.0); MEAN CORPUSCULAR HGB CONC 32.7 g/dl (32.0-36.5); MONO # 0.8 10^3/uL (0.0-0.8); MONO % 9.4 % (2.0-8.0); NEUTROPHILS # 4.8 10^3/uL (1.5-8.5); NEUTROPHILS % 58.2 % (36.0-66.0); PLATELET COUNT, AUTOMATED 290 10^3/uL (150-450); RED BLOOD COUNT 4.25 10^6/uL (4.30-6.10); WHITE BLOOD COUNT 8.2 10^3/uL (4.0-10.0)
[2021-09-29 12:48] LABS: ALBUMIN 3.6 GM/DL (3.2-5.2); ALT/SGPT 20 U/L (12-78); BILIRUBIN,TOTAL 0.3 MG/DL (0.2-1.0); BLOOD UREA NITROGEN 15 MG/DL (7-18); CALCIUM LEVEL 9.4 MG/DL (8.5-10.1); CARBON DIOXIDE LEVEL 26 MEQ/L (21-32); CHLORIDE LEVEL 108 MEQ/L (98-107); CREATININE FOR GFR 1.02 MG/DL (0.70-1.30); GLOMERULAR FILTRATION RATE > 60.0 (>56); GLUCOSE, FASTING 112 MG/DL (70-100); POTASSIUM SERUM 4.3 MEQ/L (3.5-5.1); SODIUM LEVEL 140 MEQ/L (136-145); TOTAL PROTEIN 7.1 GM/DL (6.4-8.2)
[2021-09-29 14:02] VITALS: BP 140/58
[2021-09-29 14:08] LABS: VALPROIC ACID (DEPAKOTE) 44.1 UG/ML (50.0-100.0)
== END 2021-09-29 14:10 | disposition home or self-care (01) ==
LOC: M ED 11:18 → EDBD 11:18 → M ED 14:10
DX: G40.909 Epilepsy, unspecified, not intractable, without status epilepticus (principal); Z79.899 Other long term (current) drug therapy; Z91.010 Allergy to peanuts; Z91.030 Bee allergy status
CPT/HCPCS: 70450; 80053; 80164; 80180; 83605; 85025; 93041; 96365; 99285; J1953

== ENCOUNTER → 2021-11-30 | Outpatient (CLI) | payer MEDICARE | LOC: M PAIN 09:30 | PROVIDERS: ATTEND Anesthesiology | DX: M54.50 Low back pain, unspecified (principal); M79.10 Myalgia, unspecified site; M79.18 Myalgia, other site; G40.909 Epilepsy, unspecified, not intractable, without status epilepticus; I10 Essential (primary) hypertension; F43.10 Post-traumatic stress disorder, unspecified; G62.9 Polyneuropathy, unspecified; F31.9 Bipolar disorder, unspecified; R03.0 Elevated blood-pressure reading, without diagnosis of hypertension; M79.661 Pain in right lower leg; M79.662 Pain in left lower leg; K21.9 Gastro-esophageal reflux disease without esophagitis; J45.909 Unspecified asthma, uncomplicated; J44.9 Chronic obstructive pulmonary disease, unspecified; R91.1 Solitary pulmonary nodule; F17.210 Nicotine dependence, cigarettes, uncomplicated; Z86.73 Personal history of transient ischemic attack (TIA), and cerebral infarction without residual deficits; Z87.81 Personal history of (healed) traumatic fracture; Z79.899 Other long term (current) drug therapy; Z91.030 Bee allergy status; Z91.010 Allergy to peanuts ==

== ENCOUNTER → 2022-01-26 | Outpatient (CLI) | payer MEDICARE ==
[~2022-01-26] MED LIST changes: +FLUT1BLS8 INH; +LISI10TA22 PO
== END ==
LOC: M LABSMTC 09:40
PROVIDERS: ATTEND Anesthesiology
DX: Z01.818 Encounter for other preprocedural examination (principal); Z11.52 Encounter for screening for COVID-19

== ENCOUNTER 2022-01-31 07:35 | Inpatient (IN) | payer MEDICARE ==
[~2022-01-31] VITALS: Ht 190.5 cm; Wt 146.0 kg
[2022-01-31] VITALS (8 sets, daily range): BP systolic 117–168; BP diastolic 65–109
[~2022-01-31 07:35] MED LIST changes: +ceFAZolin SOD 1 GM in D5W MINI-BAG PLUS 50 ML IV ONE; +ceFAZolin SOD 2 GM in IV 1 EA IV ONE
[2022-01-31] MEDS ORDERED: propofoL 200 MG/20 ML VIAL As Ordered ONE ×2 (08:12→11:46)
[2022-01-31] MEDS ORDERED: MIDAZOLAM INJ 2MG/2ML VIAL (J2250 PER 1MG) As Ordered ONE ×2 (08:12→11:28)
[2022-01-31] MEDS ORDERED: LIDOCAINE 2% 100MG/5ML SDV (FOR ANES.) As Ordered ONE (08:12)
[2022-01-31] MEDS ORDERED: SUGAMMADEX SODIUM 500 MG/5 ML VIAL (BRIDION) As Ordered ONE (08:12)
[2022-01-31] MEDS ORDERED: fentaNYL 100 MCG/2 ML INJECTION As Ordered ONE ×2 (08:12→18:07)
[2022-01-31] MEDS ORDERED: ONDANSETRON 4MG 2ML VIAL As Ordered ONE (08:12)
[2022-01-31] MEDS ORDERED: dexameTHASONE 4 MG/ML 1ML VIAL (J1100 PER 1MG) As Ordered ONE (08:12)
[2022-01-31] MEDS ORDERED: ROCURONIUM BROMIDE 50 MG/5 ML VIAL As Ordered ONE ×2 (08:12→12:36)
[2022-01-31] MEDS ORDERED: KETOROLAC 60MG 2ML VIAL As Ordered ONE (08:12)
[2022-01-31] MEDS ORDERED: LR 1,000 ML IV SCH (08:20)
[2022-01-31] MEDS ORDERED: MORPHINE 4 MG/ML 1ML VIAL/SYRINGE IV ONE (08:30)
[2022-01-31] MEDS ORDERED: BUPIVACAINE/EPIN 0.25% 30 ML VIAL As Ordered ONE (09:02)
[2022-01-31] MEDS ORDERED: ACETAMINOPHEN 1000MG 100ML IV BTL (OFIRMEV) (J0131 PER 10MG) As Ordered ONE (09:35)
[2022-01-31] MEDS ORDERED: HYDROmorphone HCL 2MG/ML 1ML VIAL As Ordered ONE (10:06)
[2022-01-31] MEDS ORDERED: ONDANSETRON 4MG 2ML VIAL IV PRN (11:50)
[2022-01-31] MEDS ORDERED: fentaNYL 100 MCG/2 ML INJECTION IV PRN (11:50)
[2022-01-31] MEDS ORDERED: oxyCODONE 5MG TAB PO PRN (11:50)
[2022-01-31 12:16] LABS: ABG BASE EXCESS -2.1 (-2.0-2.0); ABG O2 SATURATION 93.7 % (95.0-99.0); ABG PARTIAL PRESSURE CO2 59.3 mmHg (35.0-45.0); ABG PARTIAL PRESSURE O2 77.4 mmHg (75.0-100.0); ABG STANDARD HCO3 22.6 MEQ/L (22.0-26.0); ABG TOTAL CO2 27.8 MEQ/L (22.0-29.0)
[2022-01-31 13:39] LABS: ABG HCO3 26.5 MEQ/L (22.0-26.0); ABG PARTIAL PRESSURE O2 87.9 mmHg (75.0-100.0); ABG STANDARD HCO3 22.8 MEQ/L (22.0-26.0); ABG TOTAL CO2 28.4 MEQ/L (22.0-29.0)
[2022-01-31 13:43] LABS: ABG PARTIAL PRESSURE CO2 61.9 mmHg (35.0-45.0)
[2022-01-31 14:18] LABS: HEMOGLOBIN 13.5 g/dl (13.5-17.5); MEAN CORPUSCULAR HEMOGLOBIN 30.3 pg (27.0-33.0); MEAN CORPUSCULAR HGB CONC 32.9 g/dl (32.0-36.5); MEAN CORPUSCULAR VOLUME 92.1 fl (80.0-96.0); PLATELET COUNT, AUTOMATED 271 10^3/uL (150-450); RED BLOOD COUNT 4.45 10^6/uL (4.30-6.10); WHITE BLOOD COUNT 9.9 10^3/uL (4.0-10.0)
[2022-01-31] MEDS: NORCO, ANEXSIA 5/325MG TABLET (HYDROcodone/ACETAMINOPHEN) PO PRN ×2 (14:19→21:09)
[2022-01-31 15:01] LABS: ALBUMIN 3.6 GM/DL (3.2-5.2); BILIRUBIN,TOTAL 0.3 MG/DL (0.2-1.0); CALCIUM LEVEL 8.8 MG/DL (8.5-10.1); CREATININE FOR GFR 1.4 MG/DL (0.70-1.30); GLOMERULAR FILTRATION RATE 55.4 (>56); POTASSIUM SERUM 5.8 MEQ/L (3.5-5.1); TOTAL PROTEIN 7.4 GM/DL (6.4-8.2)
[2022-01-31] MEDS ORDERED: FUROSEMIDE 40MG/4ML VIAL (J1940) IV ONE (16:05)
[2022-01-31] MEDS: IPRATROPIUM 0.5MG/ALBUTEROL 2.5MG INH SOL UD 3ML (DUONEB) NEB SCH ×2 (16:05→21:44)
[2022-01-31 16:09] LABS: ABG BASE EXCESS -2.8 (-2.0-2.0); ABG HCO3 24.1 MEQ/L (22.0-26.0); ABG O2 SATURATION 97.2 % (95.0-99.0); ABG PARTIAL PRESSURE CO2 50.3 mmHg (35.0-45.0); ABG PARTIAL PRESSURE O2 107.7 mmHg (75.0-100.0); ABG STANDARD HCO3 22.2 MEQ/L (22.0-26.0); ABG TOTAL CO2 25.7 MEQ/L (22.0-29.0); ABG pH (ARTERIAL) 7.299 UNITS (7.350-7.450)
[2022-01-31] MEDS ORDERED: fentaNYL 100 MCG/2 ML INJECTION IV STA (18:05)
[2022-01-31] MEDS ORDERED: ACETAMINOPHEN 1000MG 100ML IV BTL (OFIRMEV) (J0131 PER 10MG) IV ONE (18:35)
[2022-01-31 18:57] LABS: ABG BASE EXCESS -1.5 (-2.0-2.0); ABG HCO3 25.6 MEQ/L (22.0-26.0); ABG O2 SATURATION 86.9 % (95.0-99.0); ABG PARTIAL PRESSURE CO2 53.2 mmHg (35.0-45.0); ABG PARTIAL PRESSURE O2 59.6 mmHg (75.0-100.0); ABG STANDARD HCO3 22.9 MEQ/L (22.0-26.0); ABG TOTAL CO2 27.3 MEQ/L (22.0-29.0); ABG pH (ARTERIAL) 7.301 UNITS (7.350-7.450)
[2022-01-31 19:07] LABS: BASO # 0.1 10^3/uL (0.0-0.2); BASO % 0.6 % (0.0-1.0); EOS % 0.1 % (0.0-3.0); HEMATOCRIT 41.2 % (42.0-52.0); HEMOGLOBIN 13.4 g/dl (13.5-17.5); LYMPH # 1.1 10^3/uL (1.5-5.0); MEAN CORPUSCULAR HEMOGLOBIN 29.8 pg (27.0-33.0); MEAN CORPUSCULAR HGB CONC 32.5 g/dl (32.0-36.5); MEAN CORPUSCULAR VOLUME 91.6 fl (80.0-96.0); MONO # 0.5 10^3/uL (0.0-0.8); MONO % 4.8 % (2.0-8.0); NEUTROPHILS # 8.8 10^3/uL (1.5-8.5); NEUTROPHILS % 83.8 % (36.0-66.0); PLATELET COUNT, AUTOMATED 317 10^3/uL (150-450); WHITE BLOOD COUNT 10.5 10^3/uL (4.0-10.0)
[2022-01-31 19:41] LABS: CK-MB VALUE MASS 2.9 NG/ML (<3.6); MB/CK RELATIVE INDEX 1.26 (< OR =4)
[2022-01-31 19:46] LABS: CALCIUM LEVEL 8.8 MG/DL (8.5-10.1); CREATININE FOR GFR 1.51 MG/DL (0.70-1.30); GLOMERULAR FILTRATION RATE 50.8 (>56); POTASSIUM SERUM 5.2 MEQ/L (3.5-5.1)
[2022-01-31] MEDS: PIPERACILLIN/TAZOBACTAM SOD 3.375 GM in D5W MINI-BAG PLUS 50 ML IV SCH (20:00)
[2022-02-01] VITALS: BP 128/94
[2022-02-01] MEDS: PIPERACILLIN/TAZOBACTAM SOD 3.375 GM in D5W MINI-BAG PLUS 50 ML IV SCH ×3 (02:40→14:22)
[2022-02-01] MEDS: NORCO, ANEXSIA 5/325MG TABLET (HYDROcodone/ACETAMINOPHEN) PO PRN ×2 (02:41→06:26)
[2022-02-01 04:24] LABS: HEMATOCRIT 37.2 % (42.0-52.0); HEMOGLOBIN 11.8 g/dl (13.5-17.5); MEAN CORPUSCULAR HEMOGLOBIN 29.3 pg (27.0-33.0); MEAN CORPUSCULAR HGB CONC 31.7 g/dl (32.0-36.5); MEAN CORPUSCULAR VOLUME 92.3 fl (80.0-96.0); PLATELET COUNT, AUTOMATED 258 10^3/uL (150-450); RED BLOOD COUNT 4.03 10^6/uL (4.30-6.10)
[2022-02-01 04:58] LABS: BLOOD UREA NITROGEN 20 MG/DL (7-18); CALCIUM LEVEL 8.2 MG/DL (8.5-10.1); CARBON DIOXIDE LEVEL 25 MEQ/L (21-32); CHLORIDE LEVEL 104 MEQ/L (98-107); CREATININE FOR GFR 1.17 MG/DL (0.70-1.30); GLOMERULAR FILTRATION RATE > 60.0 (>56); GLUCOSE, FASTING 139 MG/DL (70-100); POTASSIUM SERUM 4.8 MEQ/L (3.5-5.1); SODIUM LEVEL 137 MEQ/L (136-145)
[2022-02-01 06:00] VITALS: BP 145/87
[2022-02-01] MEDS: IPRATROPIUM 0.5MG/ALBUTEROL 2.5MG INH SOL UD 3ML (DUONEB) NEB SCH ×2 (07:37→12:00)
[2022-02-01 08:00] VITALS: BP 135/72
[2022-02-01] MEDS ORDERED: ACETAMINOPHEN TAB 650MG DOSE (2X325MG) PO PRN (08:05)
[2022-02-01] MEDS ORDERED: BETAMETHASONE VAL 0.1% CR 15 GM TOP PRN (08:15)
[2022-02-01] MEDS ORDERED: PANTOPRAZOLE 40MG VIAL IV SCH (09:00)
[2022-02-01] MEDS ORDERED: FLUTICASONE HFA 110 MCG 12 GM INHALER (FLOVENT) INH SCH (09:00)
[2022-02-01] MEDS ORDERED: GABA600T4 PO ×2 (09:20)
[2022-02-01] MEDS ORDERED: DEPA500T2 PO (09:20)
[2022-02-01] MEDS ORDERED: GUAI100L31 PO (09:21)
[2022-02-01] MEDS ORDERED: HOME MED LIST COMPLETE! XX SCH (09:25)
[2022-02-01] MEDS ORDERED: NICOTINE POLACRILEX 2 MG GUM PO PRN (09:30)
[2022-02-01 10:14] VITALS: BP 153/104
[2022-02-01 12:00] VITALS: BP 133/68
[2022-02-01] MEDS ORDERED: GABAPENTIN 300 MG CAP PO PRN (16:00)
[2022-02-01] MEDS ORDERED: PRAZOSIN 1 MG CAP PO SCH (21:00)
[2022-02-01] MEDS ORDERED: ADVAIR HFA 115/21MCG INHALER INH SCH (21:00)
[2022-02-01] MEDS ORDERED: DIVALPROEX 500MG *ER* TAB PO SCH (21:00)
[2022-02-01] MEDS ORDERED: GABAPENTIN 300 MG CAP PO SCH (21:00)
[2022-02-02] MEDS ORDERED: TIOTROPIUM INHALER/CAPSULE (SPIRIVA) INH SCH (08:00)
== END 2022-02-01 15:42 | disposition home or self-care (01) | DRG 353 ==
LOC: M SDC 07:35 → M ICU 07:36
PROVIDERS: ADMIT Surgery; ATTEND Surgery
PROC: 8E0W4CZ Robotic Assisted Procedure of Trunk Region, Percutaneous Endoscopic Approach (ICD-10-PCS; 2022-01-31)
PROC: 0WUF4JZ Supplement Abdominal Wall with Synthetic Substitute, Percutaneous Endoscopic Approach (ICD-10-PCS; principal; 2022-01-31 08:40)
DX: K42.0 Umbilical hernia with obstruction, without gangrene (principal); J96.01 Acute respiratory failure with hypoxia; J96.02 Acute respiratory failure with hypercapnia; E66.2 Morbid (severe) obesity with alveolar hypoventilation; J98.11 Atelectasis; E87.29 Other acidosis; K43.0 Incisional hernia with obstruction, without gangrene; E87.5 Hyperkalemia; K74.60 Unspecified cirrhosis of liver; G40.909 Epilepsy, unspecified, not intractable, without status epilepticus; M48.061 Spinal stenosis, lumbar region without neurogenic claudication; F10.10 Alcohol abuse, uncomplicated; R00.0 Tachycardia, unspecified